=== PATIENT | male | born 1945 | race Caucasian/White ===

== ENCOUNTER 2021-03-20 09:51 | Emergency (ER) | payer OTHER ==
[2021-03-20 10:06] VITALS: RESP 18
[2021-03-20 10:28] LABS: Glucose,Whole Blood 88 mg/dL (75-99)
[2021-03-20 10:51] LABS: Basophils % (A) 1 %; Eosinophils # (A) 0.1 k/uL (0-0.7); Eosinophils % (A) 2 %; HCT 46.1 % (39.0-53.0); HGB 15.2 gm/dL (13.0-17.5); Lymphocytes # (A) 1.6 k/uL (1.0-4.8); Lymphocytes % (A) 27 %; MCH 30.7 pg (25.0-35.0); MCHC 32.9 g/dL (31.0-37.0); MCV 93.3 fL (80.0-100.0); Mean Platelet Volume 7.6; Monocytes # (A) 0.4 k/uL (0-1.0); Monocytes % (A) 7 %; Neutrophils # (A) 3.6 k/uL (1.3-7.7); Neutrophils % (A) 62 %; Platelet Count 101 k/uL (150-450); RBC 4.94 m/uL (4.30-5.90); RDW 13.5 % (11.5-15.5); WBC 5.8 k/uL (3.8-10.6)
[2021-03-20 11:09] LABS: ALT 33 U/L (4-49); AST 43 U/L (17-59); African American GFR (CKD) >90 (>60 ml/min/1.73 sqM); Albumin 4.2 g/dL (3.5-5.0); Alkaline Phosphatase 103 U/L (38-126); Anion Gap 3 mmol/L; Blood Urea Nitrogen 18 mg/dL (9-20); Calcium 9.9 mg/dL (8.4-10.2); Carbon Dioxide 35 mmol/L (22-30); Chloride 102 mmol/L (98-107); Glucose 95 mg/dL (74-99); Non-African American GFR(CKD) >90 (>60 ml/min/1.73 sqM); Potassium 4.3 mmol/L (3.5-5.1); Sodium 140 mmol/L (137-145); Total Bilirubin 0.6 mg/dL (0.2-1.3); Total Protein 6.6 g/dL (6.3-8.2)
--- NOTE | 2021-03-20 11:14 | US ---
EXAMINATION TYPE: US venous doppler duplex LE LT DATE OF EXAM: 03/20/2021 11:01 AM COMPARISON: NONE CLINICAL HISTORY: left lower leg edema. SIDE PERFORMED: Left TECHNIQUE: The lower extremity deep venous system is examined utilizing real time linear array sonog lacey with graded compression, doppler sonography and color-flow sonography. VESSELS IMAGED: Common Femoral Vein Deep Femoral Vein Greater Saphenous Vein * Femoral Vein Popliteal Vein Small Saphenous Vein * Proximal Calf Veins (* superficial vessels) Left Leg: Appears Negative for DVT Technically difficult, patient of large body habitus. IMPRESSION: 1. Left lower extremity ultrasound negative for deep venous thrombosis. This has some limitation due to patient body habitus.
[2021-03-20 11:15] LABS: INR 0.9 (<1.2); Partial Thromboplastin Time 25.5 sec (22.0-30.0); Prothrombin Time 10.1 sec (9.0-12.0)
--- NOTE | 2021-03-20 11:25 | ED ---
Lower Extremity Injury HPI - General Chief Complaint: Extremity Injury, Lower Stated Complaint: Let Leg Swelling Time Seen by Provider: 03/20/21 10:08 Source: patient, RN notes reviewed Mode of arrival: ambulatory Limitations: no limitations - History of Present Illness Initial Comments: Patient is a 75-year-old male that presents to the emergency department complaining of left lower extremity swelling and some tenderness. He notes that his primary care soon the emergency room to get evaluated for possible DVT. Patient notes that he does have very minimal tenderness over the left calf other than that everything is normal. Patient is also a diabetic and also otherwise concerns. Patient was a well-appearing well-hydrated 75-year-old male in no apparent distress or pain while sitting up in bed during the exam and interview. He denied any chest pain shortness of breath headache nausea vomiting diarrhea constipation fever fatigue chills. - Related Data Allergies Allergy/AdvReac Type Severity Reaction Status Date / Time No Known Allergies Allergy Verified 03/20/21 10:02 Review of Systems ROS Statement: Those systems with pertinent positive or pertinent negative responses have been documented in the HPI. ROS Other: All systems not noted in ROS Statement are negative. Past Medical History Past Medical History: COPD, Diabetes Mellitus History of Any Multi-Drug Resistant Organisms: None Reported Additional Past Surgical History / Comment(s): cataracts Past Psychological History: No Psychological Hx Reported Smoking Status: Former smoker Past Alcohol Use History: None Reported Past Drug Use History: None Reported General Exam Limitations: no limitations General appearance: alert, in no apparent distress, obese Head exam: Present: atraumatic, normocephalic, normal inspection Eye exam: Present: normal appearance, PERRL, EOMI. Absent: scleral icterus, conjunctival injection, periorbital swelling Neck exam: Present: normal inspection Respiratory exam: Present: normal lung sounds bilaterally. Absent: respiratory distress, wheezes, rales, rhonchi, stridor Cardiovascular Exam: Present: regular rate, normal rhythm, normal heart sounds. Absent: systolic murmur, diastolic murmur, rubs, gallop, clicks Left Lower Leg exam: Present: full ROM, tenderness (Very minimal over the calf), swelling (One plus). Absent: abrasion, laceration, erythema Neurological exam: Present: alert, oriented X3 Psychiatric exam: Present: normal affect, normal mood Skin exam: Present: warm, dry, intact, normal color. Absent: rash Course Vital Signs 03/20/21 10:03 Temperature 98.2 F Pulse Rate 83 Respiratory 18 Rate Blood Pressure 148/74 O2 Sat by Pulse 94 L Oximetry Medical Decision Making - Medical Decision Making 75-year-old male sent in by primary care to get evaluated for potential left lower extremity DVT. Labs, ultrasound of the left lower extremity ordered. Labs unremarkable. Ultrasound negative for DVT at this time. Patient did report that he eats a lot of salt drinks plenty water and that the swelling went down on its own prior to arrival. Case discussed with Dr. Gaines, patient discharge in stable condition to follow-up with primary care. - Lab Data Result diagrams: 03/20/21 10:28 03/20/21 10:32 Lab Results 03/20/21 03/20/21 03/20/21 Range/Units 10:27 10:28 10:32 WBC 5.8 (3.8-10.6) k/uL RBC 4.94 (4.30-5.90) m/uL Hgb 15.2 (13.0-17.5) gm/dL Hct 46.1 (39.0-53.0) % MCV 93.3 (80.0-100.0) fL MCH 30.7 (25.0-35.0) pg MCHC 32.9 (31.0-37.0) g/dL RDW 13.5 (11.5-15.5) % Plt Count 101 L (150-450) k/uL MPV 7.6 Neutrophils % 62 % Lymphocytes % 27 % Monocytes % 7 % Eosinophils % 2 % Basophils % 1 % Neutrophils # 3.6 (1.3-7.7) k/uL Lymphocytes # 1.6 (1.0-4.8) k/uL Monocytes # 0.4 (0-1.0) k/uL Eosinophils # 0.1 (0-0.7) k/uL Basophils # 0.0 (0-0.2) k/uL PT 10.1 (9.0-12.0) sec INR 0.9 (<1.2) APTT 25.5 (22.0-30.0) sec Sodium (137-145) mmol/L Potassium (3.5-5.1) mmol/L Chloride (98-107) mmol/L Carbon Dioxide (22-30) mmol/L Anion Gap mmol/L BUN (9-20) mg/dL Creatinine (0.66-1.25) mg/dL Est GFR (CKD-EPI)AfAm (>60 ml/min/1.73 sqM) Est GFR (CKD-EPI)NonAf (>60 ml/min/1.73 sqM) Glucose (74-99) mg/dL POC Glucose (mg/dL) 88 (75-99) mg/dL POC Glu Operations Lieutenant ID Roxann Christian Calcium (8.4-10.2) mg/dL Total Bilirubin (0.2-1.3) mg/dL AST (17-59) U/L ALT (4-49) U/L Alkaline Phosphatase (38-126) U/L Total Protein (6.3-8.2) g/dL Albumin (3.5-5.0) g/dL 03/20/21 Range/Units 10:32 WBC (3.8-10.6) k/uL RBC (4.30-5.90) m/uL Hgb (13.0-17.5) gm/dL Hct (39.0-53.0) % MCV (80.0-100.0) fL MCH (25.0-35.0) pg MCHC (31.0-37.0) g/dL RDW (11.5-15.5) % Plt Count (150-450) k/uL MPV Neutrophils % % Lymphocytes % % Monocytes % % Eosinophils % % Basophils % % Neutrophils # (1.3-7.7) k/uL Lymphocytes # (1.0-4.8) k/uL Monocytes # (0-1.0) k/uL Eosinophils # (0-0.7) k/uL Basophils # (0-0.2) k/uL PT (9.0-12.0) sec INR (<1.2) APTT (22.0-30.0) sec Sodium 140 (137-145) mmol/L Potassium 4.3 (3.5-5.1) mmol/L Chloride 102 (98-107) mmol/L Carbon Dioxide 35 H (22-30) mmol/L Anion Gap 3 mmol/L BUN 18 (9-20) mg/dL Creatinine 0.58 L (0.66-1.25) mg/dL Est GFR (CKD-EPI)AfAm >90 (>60 ml/min/1.73 sqM) Est GFR (CKD-EPI)NonAf >90 (>60 ml/min/1.73 sqM) Glucose 95 (74-99) mg/dL POC Glucose (mg/dL) (75-99) mg/dL POC Glu Operations Lieutenant ID Calcium 9.9 (8.4-10.2) mg/dL Total Bilirubin 0.6 (0.2-1.3) mg/dL AST 43 (17-59) U/L ALT 33 (4-49) U/L Alkaline Phosphatase 103 (38-126) U/L Total Protein 6.6 (6.3-8.2) g/dL Albumin 4.2 (3.5-5.0) g/dL - Radiology Data Radiology results: report reviewed, image reviewed Ultrasound left lower extremity: Left lower extremity ultrasound negative for DVT. This has some limitation due to patient body habitus. Disposition Clinical Impression: Lower extremity edema Disposition: HOME SELF-CARE Condition: Stable Instructions (If sedation given, give patient instructions): Leg Edema (ED) Additional Instructions: Please return to the Emergency Department if symptoms worsen or any other concerns. Limits so intake as it can cause fluid retention. Follow-up with primary care as soon as possible. Is patient prescribed a controlled substance at d/c from ED?: No Referrals: Kevin Fofana PT [Primary Care Provider] - 1-2 days Time of Disposition: 11:34
[2021-03-20 11:43] VITALS: BP 161/83; PULSE 82; TEMP 98
== END 2021-03-20 11:42 | disposition home or self-care (01) ==
LOC: EC 09:51
DX: R60.0 Localized edema (principal); J44.9 Chronic obstructive pulmonary disease, unspecified; E11.9 Type 2 diabetes mellitus without complications; Z87.891 Personal history of nicotine dependence
CPT/HCPCS: 36415; 80053; 85025; 85610; 85730; 99284

== ENCOUNTER 2024-04-05 12:25 | Inpatient (IN) | payer OTHER, MEDICARE ==
[2024-04-05 13:50] LABS: Basophils % (A) 1 %; Eosinophils # (A) 0.2 k/uL (0-0.7); Eosinophils % (A) 4 %; HCT 45.5 % (39.0-53.0); HGB 13.6 gm/dL (13.0-17.5); Hypochromasia Marked; Lymphocytes # (A) 1.2 k/uL (1.0-4.8); Lymphocytes % (A) 25 %; MCH 30.2 pg (25.0-35.0); MCV 100.8 fL (80.0-100.0); Macrocytosis Slight; Mean Platelet Volume 8.1; Monocytes # (A) 0.4 k/uL (0-1.0); Monocytes % (A) 8 %; Neutrophils % (A) 60 %; Platelet Count 101 k/uL (150-450); RBC 4.51 m/uL (4.30-5.90); RDW 13.7 % (11.5-15.5)
--- NOTE | 2024-04-05 13:53 | ED ---
SOB HPI - General Source: patient, RN notes reviewed Mode of arrival: ambulatory Limitations: no limitations - History of Present Illness Complaint: shortness of breath <Zaria Spencer - Last Filed: 04/05/24 13:52> - General Source: patient, RN notes reviewed, old records reviewed Mode of arrival: ambulatory Limitations: no limitations - History of Present Illness Complaint: shortness of breath -: days(s) Severity: severe Severity scale (1-10): 9 Quality: dull, aching, throbbing Consistency: constant Improves With: nothing Worsens With: exertion, movement Known History Of: COPD, asthma Context: recent URI, anxiety, recent illness Associated Symptoms: cough Treatments Prior to Arrival: oxygen <Aleksandar Contreras - Last Filed: 04/11/24 05:26> - General Chief Complaint: Shortness of Breath Stated Complaint: Abd pain Time Seen by Provider: 04/05/24 13:52 - History of Present Illness Initial Comments: Quick Note: This is an 79-year-old male who presents to the emergency department for abdominal bloating and shortness of breath. Over the last week he has had increasing swelling in his abdomen as well as lower extremities. States that he has never had problems with bloating in his abdomen before. He wears oxygen at home and states that his saturation has been dropping into the 80s as well. Denies any history of CHF. Unsure if he is on any diuretics at home. (Zaria Spencer) This is an 79-year-old male to the ER for evaluation of significant shortness of breath abdominal pain and swelling leg pain and swelling (Aleksandar Contreras) - Related Data Home Medications Medication Instructions Recorded Confirmed Artificial Tears-Hypromellose 1 drop BOTH EYES QID 04/06/24 04/06/24 [Artificial Tear Drops] Carboxymethylcellulose 1% Opth Gel 1 drop BOTH EYES BID 04/06/24 04/06/24 Fluticasone Propion/Salmeterol 1 puff INHALATION RT-BID 04/06/24 04/06/24 [Advair 100-50 Diskus] Ipratropium/Albuter 20-100Mcg 1 puff INHALATION RT-QID 04/06/24 04/06/24 [Combivent Respimat 20-100Mcg Inhaler] Loratadine 10 mg PO DAILY 04/06/24 04/06/24 Metoprolol Succinate (ER) [Toprol 12.5 mg PO DAILY 04/06/24 04/06/24 XL] glipiZIDE [Glucotrol] 5 mg PO AC-BID 04/06/24 04/06/24 metFORMIN HCL 1,000 mg PO BID 04/06/24 04/06/24 Previous Rx's Medication Instructions Recorded Furosemide [Lasix] 40 mg PO DAILY #90 tablet 04/07/24 Spironolactone [Aldactone] 100 mg PO DAILY #120 tab 04/07/24 Allergies Allergy/AdvReac Type Severity Reaction Status Date / Time naproxen Allergy Anaphylaxis Verified 04/06/24 10:01 simvastatin [From Zocor] AdvReac Nausea & Verified 04/06/24 10:01 Vomiting Review of Systems ROS Other: All systems not noted in ROS Statement are negative. <Zaria Spencer - Last Filed: 04/05/24 13:52> ROS Other: All systems not noted in ROS Statement are negative. <Aleksandar Contreras - Last Filed: 04/11/24 05:26> ROS Statement: Those systems with pertinent positive or pertinent negative responses have been documented in the HPI. Past Medical History Past Medical History: COPD, Diabetes Mellitus History of Any Multi-Drug Resistant Organisms: None Reported Additional Past Surgical History / Comment(s): cataracts Past Psychological History: No Psychological Hx Reported Smoking Status: Former smoker Past Alcohol Use History: None Reported Past Drug Use History: None Reported <Zaria Spencer - Last Filed: 04/05/24 13:52> General Exam Limitations: no limitations <Zaria Spencer - Last Filed: 04/05/24 13:52> General appearance: alert, in no apparent distress Head exam: Present: atraumatic, normocephalic, normal inspection Eye exam: Present: normal appearance, PERRL, EOMI. Absent: scleral icterus, conjunctival injection, periorbital swelling ENT exam: Present: normal exam, mucous membranes moist Neck exam: Present: normal inspection. Absent: tenderness, meningismus, lymphadenopathy Respiratory exam: Present: normal lung sounds bilaterally. Absent: respiratory distress, wheezes, rales, rhonchi, stridor Cardiovascular Exam: Present: regular rate, normal rhythm, normal heart sounds. Absent: systolic murmur, diastolic murmur, rubs, gallop, clicks GI/Abdominal exam: Present: soft, normal bowel sounds. Absent: distended, tenderness, guarding, rebound, rigid Extremities exam: Present: normal inspection, full ROM, normal capillary refill. Absent: tenderness, pedal edema, joint swelling, calf tenderness Back exam: Present: normal inspection Neurological exam: Present: alert, oriented X3, CN II-XII intact Psychiatric exam: Present: normal affect, normal mood Skin exam: Present: warm, dry, intact, normal color. Absent: rash <Aleksandar Contreras - Last Filed: 04/11/24 05:26> - General Exam Comments Initial Comments: Visual Physical Exam Vital signs reviewed General: Well-appearing, nontoxic, no acute distress. Head: Normocephalic, atraumatic Eyes: PERRLA, EOMI ENT: Airway patent Chest: Nonlabored breathing Skin: No visual rash, normal skin tone Neuro: Alert and oriented 3 Musculoskeletal: No gross abnormalities (Vogley,Zaria) Course <Aleksandar Contreras - Last Filed: 04/11/24 05:26> Vital Signs 04/05/24 04/05/24 04/05/24 12:30 17:35 17:41 Temperature 97.7 F Pulse Rate 87 83 88 Respiratory 20 22 Rate Blood Pressure 153/73 137/45 O2 Sat by Pulse 93 L 95 Oximetry 04/05/24 04/05/24 04/05/24 17:51 17:58 18:28 Temperature Pulse Rate 89 96 91 Respiratory 18 Rate Blood Pressure 128/59 O2 Sat by Pulse 95 Oximetry 04/05/24 04/05/24 04/06/24 19:41 22:48 02:08 Temperature Pulse Rate 102 H 101 H 82 Respiratory 17 20 16 Rate Blood Pressure 139/77 118/62 80/59 O2 Sat by Pulse 95 96 95 Oximetry 04/06/24 04/06/24 04/06/24 06:00 07:50 08:01 Temperature Pulse Rate 105 H 77 79 Respiratory 18 Rate Blood Pressure 115/93 O2 Sat by Pulse 94 L 95 Oximetry 04/06/24 04/06/24 04/06/24 08:43 09:00 12:00 Temperature Pulse Rate 84 92 90 Respiratory 18 18 18 Rate Blood Pressure 119/65 128/53 110/54 O2 Sat by Pulse 93 L 98 96 Oximetry 04/06/24 04/06/24 04/06/24 12:03 12:14 15:18 Temperature Pulse Rate 82 87 84 Respiratory Rate Blood Pressure O2 Sat by Pulse Oximetry 04/06/24 04/06/24 15:27 16:12 Temperature Pulse Rate 88 89 Respiratory 18 Rate Blood Pressure 124/46 O2 Sat by Pulse 97 Oximetry - Reevaluation(s) Reevaluation #1: 04/05/24 18:19 Medical records reviewed (Aleksandar Contreras) Reevaluation #2: 04/05/24 18:19 Patient admits to increased weight gain, no real improvement in symptoms here in the ER (Aleksandar Contreras) Reevaluation #3: 04/05/24 18:19 Patient informed of results questions answered (Aleksandar Contreras) Reevaluation #4: 04/05/24 18:19 Was pt. sent in by a medical professional or institution (, PA, PARLIAMENTARY LIBRARIAN, urgent care, hospital, or prison...) When possible be specific @ -no Did you speak to anyone other than the patient for history (EMS, parent, family, police, friend...)? What history was obtained from this source @ -no Did you review nursing and triage notes (agree or disagree)? Why? @ -agree Are old charts reviewed (outside hosp., previous admission, EMS record, old EKG, old radiological studies, urgent care reports/EKG's, prison records)? Report findings @ -yes Differential Diagnosis (chest pain, altered mental status, abdominal pain women, abdominal pain men, vaginal bleeding, weakness, fever, dyspnea, syncope, headache, dizziness, GI bleed, back pain, seizure, CVA, palpatations, mental health, musculoskeletal)? @ -prior EKG interpreted by me (3pts min.). @ -yes X-rays interpreted by me (1pt min.). @ -yes negative for acute disease CT interpreted by me (1pt min.). @ -Yes positive for ascites U/S interpreted by me (1pt. min.). @ -no What testing was considered but not performed or refused? (CT, X-rays, U/S, labs)? Why? @ -none What meds were considered but not given or refused? Why? @ -none Did you discuss the management of the patient with other professionals (professionals i.e. , PA, PARLIAMENTARY LIBRARIAN, lab, RT, psych nurse, social media content manager, customer support manager, teacher, press officer, community case manager)? Give summary @ -no Was smoking cessation discussed for >3mins.? @ -no Was critical care preformed (if so, how long)? @ -no Were there social determinants of health that impacted care today? How? (Homelessness, low income, unemployed, alcoholism, drug addiction, transporta tion, low edu. Level, literacy, decrease access to med. care, [facility], rehab)? @ -none Was there de-escalation of care discussed even if they declined (Discuss DNR or withdrawal of care, Hospice)? DNR status @ -no What co-morbidities impacted this encounter? (DM, HTN, Smoking, COPD, CAD, Cancer, CVA, ARF, Chemo, Hep., AIDS, mental health diagnosis, sleep apnea, morbid obesity)? @ -none Was patient admitted / discharged? Hospital course, mention meds given and route, prescriptions, significant lab abnormalities, going to OR and other pertinent info. @ - 79 male to ER for evaluation of severe shortness of breath significant ascites COPD and asthma. Patient will admit for fluid retention anasarca COPD and ascites Admitted Undiagnosed new problem with uncertain prognosis? @ -no Drug Therapy requiring intensive monitoring for toxicity (Heparin, Nitro, Insulin, Cardizem)? @ -no Were any procedures done? @ -no Diagnosis/symptom? @ -New onset of ascites dyspnea COPD Acute, or Chronic, or Acute on Chronic? @ -Acute Uncomplicated (without systemic symptoms) or Complicated (systemic symptoms)? @ -Complicated Side effects of treatment? @ -no Exacerbation, Progression, or Severe Exacerbation? @ -exacerbation Poses a threat to life or bodily function? How? (Chest pain, [place], [place], pneumonia, PE, COPD, DKA, ARF, appy, cholecystitis, CVA, Diverticulitis, Homicidal, Suicidal, threat to staff... and all critical care pts) @ -yes extremes of age (Aleksandar Contreras) Reevaluation #5: Differential Dyspnea: Coronary syndrome, arrhythmia, tamponade, asthma, COPD, pulmonary embolism, pneumonia, pneumothorax, pulmonary effusion, anaphylaxis, diabetic ketoacidosis, flailed chest, pulmonary contusion, diaphragmatic rupture, anemia, neuromuscular, this is not meant to be an all-inclusive list. (Aleksandar Contreras) - Consultations Consultation #1: Spoke with sound who agrees to admit this patient (Aleksandar Contreras) Medical Decision Making - Lab Data Result diagrams: 04/05/24 13:32 <Zaria Spencer - Last Filed: 04/05/24 13:52> - Lab Data Result diagrams: 04/07/24 06:21 04/07/24 06:17 - Radiology Data Radiology results: report reviewed (Chest x-ray shows opacities and CHF, CT shows positive ascites), image reviewed <Aleksandar Contreras - Last Filed: 04/11/24 05:26> - Medical Decision Making I performed the QuickNote portion of this chart. Signed Zaria Spencer PA-C. (Zaria Spencer) 79 male to ER for evaluation of severe shortness of breath significant ascites COPD and asthma. Patient will admit for fluid retention anasarca COPD and ascites (Aleksandar Contreras) - Lab Data Lab Results 04/05/24 04/05/24 04/05/24 Range/Units 13:32 13:32 13:32 WBC 5.0 (3.8-10.6) k/uL RBC 4.51 (4.30-5.90) m/uL Hgb 13.6 (13.0-17.5) gm/dL Hct 45.5 (39.0-53.0) % MCV 100.8 H (80.0-100.0) fL MCH 30.2 (25.0-35.0) pg MCHC 30.0 L (31.0-37.0) g/dL RDW 13.7 (11.5-15.5) % Plt Count 101 L (150-450) k/uL MPV 8.1 Neutrophils % 60 % Lymphocytes % 25 % Monocytes % 8 % Eosinophils % 4 % Basophils % 1 % Neutrophils # 3.0 (1.3-7.7) k/uL Lymphocytes # 1.2 (1.0-4.8) k/uL Monocytes # 0.4 (0-1.0) k/uL Eosinophils # 0.2 (0-0.7) k/uL Basophils # 0.0 (0-0.2) k/uL Hypochromasia Marked Macrocytosis Slight PT 11.3 (10.0-12.5) sec INR 1.0 (<1.2) APTT 28.0 (22.0-30.0) sec Sodium 141 (137-145) mmol/L Potassium 4.0 (3.5-5.1) mmol/L Chloride 103 (98-107) mmol/L Carbon Dioxide 34 H (22-30) mmol/L Anion Gap 4 mmol/L BUN 9 (9-20) mg/dL Creatinine 0.68 (0.66-1.25) mg/dL Est GFR (CKD-EPI)AfAm >90 (>60 ml/min/1.73 sqM) Est GFR (CKD-EPI)NonAf >90 (>60 ml/min/1.73 sqM) Glucose 100 H (74-99) mg/dL Lactic Ac Sepsis Rflx Plasma Lactic Acid Jonathon (0.7-2.0) mmol/L Calcium 8.9 (8.4-10.2) mg/dL Magnesium 1.5 L (1.6-2.3) mg/dL Total Bilirubin 1.6 H (0.2-1.3) mg/dL AST 56 (17-59) U/L ALT 28 (4-49) U/L Alkaline Phosphatase 107 (38-126) U/L Troponin I (0.000-0.034) ng/mL NT-Pro-B Natriuret Pep 113 pg/mL Total Protein 5.7 L (6.3-8.2) g/dL Albumin 3.4 L (3.5-5.0) g/dL Procalcitonin (0.02-0.09) ng/mL Urine Color Urine Appearance (Clear) Urine pH (5.0-8.0) Ur Specific [place] (1.001-1.035) Urine Protein (Negative) Urine Glucose (UA) (Negative) Urine Ketones (Negative) Urine Blood (Negative) Urine Nitrite (Negative) Urine Bilirubin (Negative) Urine Urobilinogen (<2.0) mg/dL Ur Leukocyte Esterase (Negative) Urine RBC (0-5) /hpf Urine WBC (0-5) /hpf Ur Squamous Epith Cells (0-4) /hpf Urine Mucus (None) /hpf Influenza Type A (PCR) (Not Detectd) Influenza Type B (PCR) (Not Detectd) RSV (PCR) (Not Detectd) SARS-CoV-2 (PCR) (Not Detectd) 04/05/24 04/05/24 04/05/24 Range/Units 13:32 13:32 13:32 WBC (3.8-10.6) k/uL RBC (4.30-5.90) m/uL Hgb (13.0-17.5) gm/dL Hct (39.0-53.0) % MCV (80.0-100.0) fL MCH (25.0-35.0) pg MCHC (31.0-37.0) g/dL RDW (11.5-15.5) % Plt Count (150-450) k/uL MPV Neutrophils % % Lymphocytes % % Monocytes % % Eosinophils % % Basophils % % Neutrophils # (1.3-7.7) k/uL Lymphocytes # (1.0-4.8) k/uL Monocytes # (0-1.0) k/uL Eosinophils # (0-0.7) k/uL Basophils # (0-0.2) k/uL Hypochromasia Macrocytosis PT (10.0-12.5) sec INR (<1.2) APTT (22.0-30.0) sec Sodium (137-145) mmol/L Potassium (3.5-5.1) mmol/L Chloride (98-107) mmol/L Carbon Dioxide (22-30) mmol/L Anion Gap mmol/L BUN (9-20) mg/dL Creatinine (0.66-1.25) mg/dL Est GFR (CKD-EPI)AfAm (>60 ml/min/1.73 sqM) Est GFR (CKD-EPI)NonAf (>60 ml/min/1.73 sqM) Glucose (74-99) mg/dL Lactic Ac Sepsis Rflx Plasma Lactic Acid Jonathon 3.6 H* (0.7-2.0) mmol/L Calcium (8.4-10.2) mg/dL Magnesium (1.6-2.3) mg/dL Total Bilirubin (0.2-1.3) mg/dL AST (17-59) U/L ALT (4-49) U/L Alkaline Phosphatase (38-126) U/L Troponin I <0.012 (0.000-0.034) ng/mL NT-Pro-B Natriuret Pep pg/mL Total Protein (6.3-8.2) g/dL Albumin (3.5-5.0) g/dL Procalcitonin (0.02-0.09) ng/mL Urine Color Urine Appearance (Clear) Urine pH (5.0-8.0) Ur Specific [place] (1.001-1.035) Urine Protein (Negative) Urine Glucose (UA) (Negative) Urine Ketones (Negative) Urine Blood (Negative) Urine Nitrite (Negative) Urine Bilirubin (Negative) Urine Urobilinogen (<2.0) mg/dL Ur Leukocyte Esterase (Negative) Urine RBC (0-5) /hpf Urine WBC (0-5) /hpf Ur Squamous Epith Cells (0-4) /hpf Urine Mucus (None) /hpf Influenza Type A (PCR) Not Detected (Not Detectd) Influenza Type B (PCR) Not Detected (Not Detectd) RSV (PCR) Not Detected (Not Detectd) SARS-CoV-2 (PCR) Not Detected (Not Detectd) 04/05/24 04/05/24 04/05/24 Range/Units 13:32 13:56 14:11 WBC (3.8-10.6) k/uL RBC (4.30-5.90) m/uL Hgb (13.0-17.5) gm/dL Hct (39.0-53.0) % MCV (80.0-100.0) fL MCH (25.0-35.0) pg MCHC (31.0-37.0) g/dL RDW (11.5-15.5) % Plt Count (150-450) k/uL MPV Neutrophils % % Lymphocytes % % Monocytes % % Eosinophils % % Basophils % % Neutrophils # (1.3-7.7) k/uL Lymphocytes # (1.0-4.8) k/uL Monocytes # (0-1.0) k/uL Eosinophils # (0-0.7) k/uL Basophils # (0-0.2) k/uL Hypochromasia Macrocytosis PT (10.0-12.5) sec INR (<1.2) APTT (22.0-30.0) sec Sodium (137-145) mmol/L Potassium (3.5-5.1) mmol/L Chloride (98-107) mmol/L Carbon Dioxide (22-30) mmol/L Anion Gap mmol/L BUN (9-20) mg/dL Creatinine (0.66-1.25) mg/dL Est GFR (CKD-EPI)AfAm (>60 ml/min/1.73 sqM) Est GFR (CKD-EPI)NonAf (>60 ml/min/1.73 sqM) Glucose (74-99) mg/dL Lactic Ac Sepsis Rflx Y Plasma Lactic Acid Jonathon (0.7-2.0) mmol/L Calcium (8.4-10.2) mg/dL Magnesium (1.6-2.3) mg/dL Total Bilirubin (0.2-1.3) mg/dL AST (17-59) U/L ALT (4-49) U/L Alkaline Phosphatase (38-126) U/L Troponin I (0.000-0.034) ng/mL NT-Pro-B Natriuret Pep pg/mL Total Protein (6.3-8.2) g/dL Albumin (3.5-5.0) g/dL Procalcitonin 0.11 H (0.02-0.09) ng/mL Urine Color Colorless Urine Appearance Clear (Clear) Urine pH 5.5 (5.0-8.0) Ur Specific [place] 1.011 (1.001-1.035) Urine Protein Negative (Negative) Urine Glucose (UA) Negative (Negative) Urine Ketones Negative (Negative) Urine Blood Negative (Negative) Urine Nitrite Negative (Negative) Urine Bilirubin Negative (Negative) Urine Urobilinogen <2.0 (<2.0) mg/dL Ur Leukocyte Esterase Large H (Negative) Urine RBC 1 (0-5) /hpf Urine WBC 29 H (0-5) /hpf Ur Squamous Epith Cells <1 (0-4) /hpf Urine Mucus Occasional H (None) /hpf Influenza Type A (PCR) (Not Detectd) Influenza Type B (PCR) (Not Detectd) RSV (PCR) (Not Detectd) SARS-CoV-2 (PCR) (Not Detectd) Disposition <Zaria Spencer - Last Filed: 04/05/24 13:52> Is patient prescribed a controlled substance at d/c from ED?: No Time of Disposition: 17:00 <Aleksandar Contreras - Last Filed: 04/11/24 05:26> Clinical Impression: Acute exacerbation of chronic obstructive pulmonary disease, Ascites Disposition: ADMITTED IP TO THIS HOSP Condition: Stable
[2024-04-05 13:56] LABS: ALT 28 U/L (4-49); African American GFR (CKD) >90 (>60 ml/min/1.73 sqM); Albumin 3.4 g/dL (3.5-5.0); Anion Gap 4 mmol/L; Blood Urea Nitrogen 9 mg/dL (9-20); Calcium 8.9 mg/dL (8.4-10.2); Carbon Dioxide 34 mmol/L (22-30); Chloride 103 mmol/L (98-107); Glucose 100 mg/dL (74-99); Non-African American GFR(CKD) >90 (>60 ml/min/1.73 sqM); Sodium 141 mmol/L (137-145); Total Bilirubin 1.6 mg/dL (0.2-1.3); Total Protein 5.7 g/dL (6.3-8.2)
[2024-04-05 13:58] LABS: AST 56 U/L (17-59); Alkaline Phosphatase 107 U/L (38-126); Magnesium 1.5 mg/dL (1.6-2.3)
[2024-04-05 13:59] LABS: Prothrombin Time 11.3 sec (10.0-12.5)
[2024-04-05 14:05] LABS: NT-Pro-B-Type Natriuretic Pept 113 pg/mL
--- NOTE | 2024-04-05 14:06 | XR ---
EXAMINATION TYPE: XR chest 2V DATE OF EXAM: 04/05/2024 COMPARISON: None HISTORY: 79-year-old male difficulty breathing, shortness of breath TECHNIQUE: PA and lateral views FINDINGS: Heart normal size. Aorta and pulmonary vasculature within normal limits. Moderate diffuse interstitia l density, slightly more patchy at the left lower lung. No pleural effusion. IMPRESSION: COPD with interstitial opacities and slightly patchy density at the left lower lung. Consider CHF wit h early interstitial edema versus atypical pneumonias.
[2024-04-05 14:54] LABS: Appearance,Urine Clear (Clear); Bilirubin,Urine Negative (Negative); Blood,Urine Negative (Negative); Color,Urine Colorless; Glucose,Urine (UA) Negative (Negative); Ketones,Urine Negative (Negative); Leukocyte Esterase,Urine Large (Negative); Mucus,Urine Occasional /hpf; Nitrite,Urine Negative (Negative); PH, Urine 5.5 (5.0-8.0); Protein,Urine Negative (Negative); RBC,Urine 1 /hpf (0-5); Specific Gravity,Urine 1.011 (1.001-1.035); Squamous Epithelial Cell,Urine <1 /hpf (0-4); Urobilinogen,Urine <2.0 mg/dL (<2.0); WBC,Urine 29 /hpf (0-5)
--- NOTE | 2024-04-05 15:07 | CT ---
EXAMINATION TYPE: CT abdomen pelvis w con DATE OF EXAM: 04/05/2024 COMPARISON: None HISTORY: abdominal distention, loose bowels CONTRAST: CT scan of the abdomen and pelvis is performed without Oral Contrast and with IV Contrast, patient in jected with 100 mL of Isovue 300. FINDINGS: LUNG BASES-: No visible nodule. No infiltrate. Small left-sided pleural effusion. LIVER/GB: There is evidence of cirrhotic liver disease without space occupying mass. The gallbladder is grossly unremarkable. Recannulization of the umbilical vein. PANCREAS: No inflammation. No distinct mass. SPLEEN: Splenomegaly with craniocaudal measurement of 17 cm. Perisplenic varices. No lesion seen. ADRENALS: No nodule. No thickening. KIDNEYS/BLADDER: No hydronephrosis. No nephrolithiasis. No distinct renal mass. Urinary bladder g rossly unremarkable. BOWEL: Perigastric varices noted. There are esophageal varices also seen. Normal appendix. Normal anika wel caliber. No inflammation. GENITAL ORGANS: No gross abnormality. LYMPH NODES: No greater than 1cm abdominal or pelvic lymph nodes are appreciated. AORTA: No significant abnormality. OSSEOUS STRUCTURES: No significant abnormality is seen. OTHER: Moderate ascites seen throughout the abdomen and pelvis. IMPRESSION: 1. Cirrhotic liver disease with splenomegaly and varices as discussed. Abdominopelvic ascites.
[2024-04-05] MEDS ORDERED: NALOXONE 0.4 MG/ML 1 ML VIAL IV PRN (16:54)
[2024-04-05] MEDS ORDERED: ONDANSETRON 4 MG/2 ML VIAL IVP PRN (16:54)
[2024-04-05] MEDS ORDERED: MORPHINE SULFATE 4 MG/ML SYRINGE IV PRN (16:54)
[2024-04-05] MEDS: FUROSEMIDE 10 MG/ML 4 ML VIAL IV STA (17:38)
[2024-04-05] MEDS: IPRATROPIUM-ALBUTEROL 3 ML NEB INHALATION STA (17:40)
[2024-04-05] MEDS: MAGNESIUM SULFATE-D5W PMX 1 GM in DEXTROSE/WATER 1 100ML.BAG IVPB SCH (17:40)
--- NOTE | 2024-04-06 01:47 | P.HPIM ---
History of Present Illness H&P Date: 04/05/24 Chief Complaint: Abdominal bloating and Dyspnea Patient is a 79-year-old male with past medical history of chronic hypoxemic respiratory failure secondary to COPD (on 3 L home oxygen therapy) and type 2 diabetes mellitus came to the ER with the symptoms of abdominal bloating that started 1 week ago. Patient reports that bloating has been worsening since past 1 to 2 days associated mild generalized abdominal pain. Patient reports no previous episodes of abdominal bloating. Denies bloody stool or dark-colored stool. Patient reports he gained 30 pounds within 2 weeks. Patient reports no previous history of ascites, liver cirrhosis, or congestive heart failure. Patient also reports exertional shortness of breath with productive cough of clear sputum since 1 week which alleviates with rest. Patient also endorses peripheral edema, orthopnea, and PND. He denies chest pain. Patient reports that he was diagnosed with "leaky heart valves" 4 years ago and he has been following up for echocardiogram every 6 months. Patient denies chest pain. No recent ho spitalization or recent travel. Denies headache, dizziness, loss of consciousness, abdominal pain, diarrhea, constipation, urinary issues. EKG done in the ER showed normal sinus rhythm with heart rate of 80 bpm. Borderline type I heart block with ID interval of 206 ms. Poor R wave progression. No QTc prolongation noted. CT abdomen revealed cirrhosis with splenomegaly and varices with ascites. Chest x-ray revealed findings of COPD as well as fluid overload. Laboratory evaluation shows WBC 5.0, hemoglobin 13.6, hematocrit 45.5, MCV 100.8, platelet count 101, PT 11.3, INR 1.0, APTT 28.0, sodium 141, potassium 4.0, chloride 103, bicarb 34, BUN 9, creatinine 0.068, glucose 100, lactic acid 3.2, magnesium 1.5, AST 56, ALT 28, troponin I 0.012 and proBNP 113 Vitals: Tmax 97.7, heart rate 102, respirations 17, blood pressure 139/77, O2 sat 95% on 2 L nasal cannula Review of systems: Pertinent positives and negatives as discussed in HPI, a complete review of systems was performed and all other systems are negative. Social history: Tobacco: Quit 20 years ago; 1 pack/day x 45 years Alcohol: Quit 20 years ago; 6-8 beers per day x 50 years Recreational drugs: None Travel: None Occupation: Retired Family History: Noncontributory Physical examination: Vital signs reviewed General: non toxic, no distress, appears at stated age, morbidly obese Derm: thierry LE chronic venous stasis changes with pretibial induration noted Head: atraumatic, normocephalic, symmetric Eyes: EOMI, no lid lag, anicteric sclera, pupils equal round reactive to light ENT: Nose and ears atraumatic Neck: No cervical lymphadenopathy, trachea midline, supple Mouth: no lip lesion, mucus membranes moist Cardiovascular: S1S2 reg, grade 2 systolic murmur, scant dorsalis pedis bila teral, grade 3 bilateral lower extremity pitting edema Lungs: CTA bilateral, no rhonchi, no rales, no accessory muscle use Abdominal: Distended, nontender, no guarding, bowel sound positive, fluid shift positive Ext: muscle strength 5 out of 5 in all 4 extremities grossly, no gross muscle atrophy, no contractures, pretibial induration with venous stasis changes, mild calf tenderness bilaterally Neuro: CN II-XI grossly intact, no gross focal neuro deficits Psych: Alert, oriented, appropriate affect Assessment/Plan: 79-year-old male with past medical history of chronic hypoxemic respiratory failure secondary to COPD (on 3 L home oxygen therapy) and type 2 diabetes mellitus came to the ER with the symptoms of abdominal bloating and worsening dypnea that started 1 week ago. #Ansarca secondary to fluid overload in setting of cirrhosis vs CHF Hold off on IV Lasix in light of patient's borderline BP (80/59) IR consult for therapeutic and diagnostic paracentensis Ordered hepatitis panel Consult GI Odered Echocardiogram for cardiac structure assessment Consider Cardiology consult as warranted by Echocardiogram results #Chronic hypoxemic respiratory respiratory failure secondary to COPD Continue with oxygen therapy with 2L on nasal cannula Continue to monitor O2 sat (Target: 88% - 92%) #Chronic venous stasis Ordered venous doppler US to r/o DVT #Elevated Lactic acidosis, likely due to cirrhosis Hold off on further testing at this point #Elevated bicarb, likely due to compensatory metabolic alkalosis in light of COPD Bicarb 34 (chronic, baseline) # Hypomagnesemia Replace and monitor Status post 3 g IV magnesium sulfate in the emergency room #Type 2 DM Started on sliding scale short acting insulin Continue to monitor serum glucose Check hgbA1C # Abnormal UA Patient denied urinary complaints Hold off on Abxs at this time #Macrocytosis, suspected due to nutritional deficiency Check RBC folate and vitamin b12 #Thrombocytopenia, in light of cirrhotic liver disease Platelet count 101 At baseline from 2020 DVT prophylaxis: Lovenox 40mg subq daily The patient is admitted with an anticipated greater than 2 midnight stay for evaluation of ascites and SOB CODE STATUS: full code Discussed with: Patient Anticipated discharge place: home Past Medical History Past Medical History: COPD, Diabetes Mellitus History of Any Multi-Drug Resistant Organisms: None Reported Additional Past Surgical History / Comment(s): cataracts Past Psychological History: No Psychological Hx Reported Smoking Status: Former smoker Past Alcohol Use History: None Reported Past Drug Use History: None Reported Medications and Allergies Allergies Allergy/AdvReac Type Severity Reaction Status Date / Time No Known Allergies Allergy Verified 04/05/24 12:34 Physical Exam Vitals: Vital Signs Temp Pulse Resp BP Pulse Ox 04/05/24 19:41 102 H 17 139/77 95 04/05/24 18:28 91 18 128/59 95 04/05/24 17:58 96 04/05/24 17:51 89 04/05/24 17:41 88 04/05/24 17:35 83 22 137/45 95 04/05/24 12:30 97.7 F 87 20 153/73 93 L Intake and Output 04/05/24 04/05/24 04/05/24 06:59 14:59 22:59 Other: Weight 127.006 kg Results CBC & Chem 7: 04/05/24 13:32 04/05/24 13:32 Labs: Abnormal Lab Results - Last 24 Hours (Table) 04/05/24 04/05/24 04/05/24 Range/Units 13:32 13:32 13:32 MCV 100.8 H (80.0-100.0) fL MCHC 30.0 L (31.0-37.0) g/dL Plt Count 101 L (150-450) k/uL Carbon Dioxide 34 H (22-30) mmol/L Glucose 100 H (74-99) mg/dL Plasma Lactic Acid Jonathon 3.6 H* (0.7-2.0) mmol/L Magnesium 1.5 L (1.6-2.3) mg/dL Total Bilirubin 1.6 H (0.2-1.3) mg/dL Total Protein 5.7 L (6.3-8.2) g/dL Albumin 3.4 L (3.5-5.0) g/dL Ur Leukocyte Esterase (Negative) Urine WBC (0-5) /hpf Urine Mucus (None) /hpf 04/05/24 04/05/24 Range/Units 14:11 17:26 MCV (80.0-100.0) fL MCHC (31.0-37.0) g/dL Plt Count (150-450) k/uL Carbon Dioxide (22-30) mmol/L Glucose (74-99) mg/dL Plasma Lactic Acid Jonathon 3.2 H* (0.7-2.0) mmol/L Magnesium (1.6-2.3) mg/dL Total Bilirubin (0.2-1.3) mg/dL Total Protein (6.3-8.2) g/dL Albumin (3.5-5.0) g/dL Ur Leukocyte Esterase Large H (Negative) Urine WBC 29 H (0-5) /hpf Urine Mucus Occasional H (None) /hpf
--- NOTE | 2024-04-06 03:23 | P.CNPUL ---
History of Present Illness Consult date: 04/06/24 Requesting physician: Aleksandar Contreras Reason for consult: COPD Chief complaint: Shortness of breath, abdominal swelling/fullness, increased lower extremity History of present illness: Patient is an 79-year-old white male with past medical history significant for COPD, chronic hypoxemic respiratory failure utilizing 2 L nasal cannula mostly at night, former tobacco smoker, diabetes mellitus. He follows with the [facility] in [place]. He went to see his provider yesterday as he had increased weight gain, approximately 30 pounds over the last couple weeks. He has noticed worsening exertional dyspnea, abdominal fullness and tightness, and increased lower extremity swelling over the last 1-1/2 weeks. He denies any history of heart failure. Denies diuretic use outpatient. Does admit to a "leaky heart valve". Denies any chest pain, lightheadedness, syncopal events. He is currently sitting up in bed, on 2 L/min nasal cannula, in no acute distress. His abdomen is distended. He has significant lower extremity edema and erythema. No tenderness, warmth, fevers. He denies any infectious-like symptoms. No change in his chronic cough. Denies fevers. Denies hemoptysis. Denies sick contacts. Patient normally wears 2 L nasal cannula mostly at night. Known to have COPD. Quit smoking approximately 20 years ago, but has significant smoking history of over 30 pack years. Chest x-ray showed COPD with interstitial prominence and slightly patchy density at the left lower lung. Possible atelectasis versus infiltrate in the left lower lobe. CHF was within the differential. NT proBNP was low. Serial troponins less than 0.012, 0.012, and 0.019 respectively. EKG shows sinus rhythm without any obvious acute ischemic changes. CBC: WBC count 5, hemoglobin 13.6, hematocrit 45.5, platelets 101. CMP: Sodium 141, potassium 4, chloride 103, serum bicarb 34, BUN 9, creatinine 0.68, glucose 100. Lactic acid 3.6 and down to 3.2. Total bilirubin 1.6. LFTs not elevated. Coagulation profile unremarkable. An abdominal CT and pelvis with contrast was performed which showed cirrhotic liver disease, splenomegaly measuring 17 cm craniocaudally, and perisplenic varices, as well as moderate abdominal pelvic ascites. No significant abdominal pain or tenderness. Denies history of known liver disease. Does admit remote history of previous heavy alcohol use over 20 years ago. Denies prior ascites or previous paracentesis. Negative for influenza, RSV, COVID. Afebrile. Hemodynamically stable. Review of Systems REVIEW OF SYSTEMS: CONSTITUTIONAL: Admits to 30 pound weight gain over approximately 2 weeks EYES: Denies change in vision. EARS, NOSE, MOUTH, THROAT: Denies headaches, denies sore throat. CARDIOVASCULAR: Denies chest pain, palpitations or syncopal episodes. Reports significant lower extremity swelling over the last 1-1/2 weeks. RESPIRATORY: Does admit progressively worsening exertional dyspnea. No significant change in patient's chronic cough, no congestion, hemoptysis, chest pain. GASTROINTESTINAL: Denies change in appetite, abdominal pain, nausea and vomiting. Does admit to loose shaw like stools. GENITOURINARY: Denies hematuria, denies infections. MUSKULOSKELETAL: Denies pain, denies swelling. INTEGUMENTARY: Denies rash, denies eczema. NEUROLOGICAL: Denies recent memory loss, no recent seizure activity. PSYCHIATRIC: Denies anxiety, denies depression. HEMATOLOGIC/LYMPHATIC: Denies anemia, denies enlarged lymph node Past Medical History Past Medical History: COPD, Diabetes Mellitus History of Any Multi-Drug Resistant Organisms: None Reported Additional Past Surgical History / Comment(s): cataracts Past Psychological History: No Psychological Hx Reported Smoking Status: Former smoker Past Alcohol Use History: None Reported Past Drug Use History: None Reported Medications and Allergies Allergies Allergy/AdvReac Type Severity Reaction Status Date / Time No Known Allergies Allergy Verified 04/05/24 12:34 Physical Exam Vitals: Vital Signs Temp Pulse Resp BP Pulse Ox 04/06/24 02:08 82 16 80/59 95 04/05/24 22:48 101 H 20 118/62 96 04/05/24 19:41 102 H 17 139/77 95 04/05/24 18:28 91 18 128/59 95 04/05/24 17:58 96 04/05/24 17:51 89 04/05/24 17:41 88 04/05/24 17:35 83 22 137/45 95 04/05/24 12:30 97.7 F 87 20 153/73 93 L Intake and Output 04/05/24 04/05/24 04/06/24 14:59 22:59 06:59 Other: Weight 127.006 kg GENERAL EXAM: Alert, 79-year-old white male, distended abdomen, fairly comfortable in no apparent distress. HEAD: Normocephalic and atraumatic EYES: Normal reaction of pupils, equal size. NOSE: Clear with pink turbinates. THROAT: No erythema or exudates. NECK: No masses, no JVD. CHEST: No chest wall deformity. LUNGS: Equal air entry with no crackles, wheeze, rhonchi or dullness. On 2 L/m in nasal cannula. No conversational dyspnea or accessory muscle use.. CVS: S1 and S2 normal with harsh systolic murmur, grade 2, regular rhythm. No other extra heart sounds ABDOMEN: Distended abdomen, ascites, active bowel sounds, no guarding or rigidity. SPINE: No scoliosis or deformity SKIN: No rashes CENTRAL NERVOUS SYSTEM: No focal deficits, tone is normal in all 4 extremities. EXTREMITIES: There is significant bilateral lower extremity edema and erythema. No clubbing, or cyanosis. Peripheral pulses are intact. Results - Laboratory Findings CBC and BMP: 04/05/24 13:32 04/05/24 13:32 PT/INR, D-dimer PT 11.3 sec (10.0-12.5) 04/05/24 13:32 INR 1.0 (<1.2) 04/05/24 13:32 Abnormal lab findings: Abnormal Labs 04/05/24 04/05/24 04/05/24 13:32 13:32 13:32 MCV 100.8 H MCHC 30.0 L Plt Count 101 L Carbon Dioxide 34 H Glucose 100 H Plasma Lactic Acid Jonathon 3.6 H* Magnesium 1.5 L Total Bilirubin 1.6 H Total Protein 5.7 L Albumin 3.4 L Ur Leukocyte Esterase Urine WBC Urine Mucus 04/05/24 04/05/24 04/05/24 14:11 17:26 20:42 MCV MCHC Plt Count Carbon Dioxide Glucose Plasma Lactic Acid Jonathon 3.2 H* 3.2 H* Magnesium Total Bilirubin Total Protein Albumin Ur Leukocyte Esterase Large H Urine WBC 29 H Urine Mucus Occasional H - Diagnostic Findings Chest x-ray: image reviewed Assessment and Plan Assessment: Acute on chronic hypoxemic respiratory failure, Chest x-ray demonstrates chronic COPD changes with interstitial prominence and slightly patchy density at the left lower lung. There is a small left pleural effusion and associated atelectasis. Doubt infectious process. CHF was within the differential, however, NT proBNP was low. Recent 30 pound weight gain Bilateral lower extremity edema Liver cirrhosis Moderate abdominal pelvic ascites, as reported in CT of the abdomen Splenomegaly, measuring 17 cm craniocaudally Chronic hypoxemic respiratory failure, normally utilizes 2 L nasal cannula at bedtime Chronic obstructive pulmonary disease, appears stable on my examination Former tobacco smoker, quitting over 20 years ago, with over 80-sici-eqof history Remote history of alcohol abuse, reportedly drinking 6-8 beers for 30-40 years, quitting over 20 years ago Obesity Diabetes mellitus, type II Plan: Patient's medications, labs, imaging reviewed Continue supplemental oxygen maintain oxygen saturation of 90% or greater Patient in a fluid positive balance Has received 1 dose of 40 mg of Lasix, is reportedly urinating often. Will continue with Lasix Transthoracic echocardiogram ordered NT proBNP low GI was consulted for abdominal CT findings with liver cirrhosis and ascites IR consulted for possible paracentesis On my evaluation, COPD does not appear active. Continue with as needed albuterol nebs We will continue to follow I have personally seen and examined the patient, performed the documentation and the assessment and plan as written. Number of minutes spent on the visit:20 Time with Patient: Greater than 30
[2024-04-06] MEDS: ALBUTEROL NEBULIZED 1.25 MG/3 ML INHALATION PRN (07:48)
--- NOTE | 2024-04-06 08:26 | US ---
EXAMINATION TYPE: US venous doppler duplex LE BI DATE OF EXAM: 04/06/2024 7:40 AM COMPARISON: LLE 03/20/2021 CLINICAL INDICATION: Male, 79 years old with history of thierry LE r/o DVT; No hx of DVT. Patient does no t take blood thinners. Pain in both legs. SIDE PERFORMED: Bilateral TECHNIQUE: The lower extremity deep venous system is examined utilizing real time linear array sonog lacey with graded compression, doppler sonography and color-flow sonography. VESSELS IMAGED: Common Femoral Vein Deep Femoral Vein Greater Saphenous Vein * Femoral Vein Popliteal Vein Small Saphenous Vein * Proximal Calf Veins (* superficial vessels) [employer] notes: Exam is limited due to edema/artifact. Right Leg: No evidence of DVT. Limited visibility of prox calf veins. Left Leg: No evidence of DVT. Limited visibility of prox calf veins. IMPRESSION: 1. Limited visibility of the upper calf veins. Otherwise, no evidence for DVT within the bilateral lo wer extremities from the groin to the knees. 2. Subcutaneous edema in the calves.
[2024-04-06 08:38] LABS: Glucose,Whole Blood 109 mg/dL (70-110)
[2024-04-06] MEDS: INSULIN ASPART (NovoLOG) 100 UNIT/ML VIAL SQ SCH (08:39)
[2024-04-06] MEDS: SPIRONOLACTONE 25 MG TAB PO SCH (08:50)
[2024-04-06] MEDS: FUROSEMIDE 10 MG/ML 2 ML VIAL IV SCH (08:50)
[2024-04-06] MEDS ORDERED: ENOXAPARIN 40 MG/0.4 ML SYRINGE SQ SCH (09:00)
[2024-04-06 11:18] LABS: Hepatitis A Antibody IgM Nonreactive (Nonreactive); Hepatitis B Surface Antigen Nonreactive (Nonreactive); Hepatitis C IgG Antibody Nonreactive (Nonreactive)
[2024-04-06 11:21] LABS: ALT 26 U/L (10-49); AST 45 U/L (14-35); Albumin 3.2 g/dL (3.8-4.9); Albumin/Globulin Ratio 1.88 Ratio (1.60-3.17); Alkaline Phosphatase 98 U/L (41-126); BUN/Creat Ratio 8.88 Ratio (12.00-20.00); Blood Urea Nitrogen 7.1 mg/dL (9.0-27.0); Calcium 8.9 mg/dL (8.7-10.3); Carbon Dioxide 33.6 mmol/L (21.6-31.8); Chloride 102 mmol/L (96-109); Globulin 1.7 g/dL (1.6-3.3); Glucose 101 mg/dL (70-110); Potassium 3.6 mmol/L (3.5-5.5); Sodium 145 mmol/L (135-145); Total Protein 4.9 g/dL (6.2-8.2)
[2024-04-06] MEDS: IPRATROPIUM-ALBUTEROL 3 ML NEB INHALATION SCH (12:03)
[2024-04-06 12:10] LABS: Magnesium 1.8 mg/dL (1.5-2.4); Phosphorus 2.7 mg/dL (2.4-5.1)
[2024-04-06 12:13] LABS: Basophils # (A) 0.04 X 10*3/uL (0.00-0.10); Basophils % (A) 0.9 %; Eosinophils # (A) 0.16 X 10*3/uL (0.04-0.35); Eosinophils % (A) 3.6 %; HGB 12.7 g/dL (13.0-17.0); Lymphocytes # (A) 0.85 X 10*3/uL (0.90-5.00); Lymphocytes % (A) 19.2 %; MCH 29.7 pg (27.0-32.0); MCHC 30.2 g/dL (32.0-37.0); MCV 98.1 FL (80.0-97.0); Mean Platelet Volume 10.3 FL (9.5-12.2); Monocytes # (A) 0.57 X 10*3/uL (0.20-1.00); Monocytes % (A) 12.9 %; NRBC Per 100 WBC 0 X 10*3/uL (0.00-0.01); Neutrophils # (A) 2.79 X 10*3/uL (1.80-7.70); Neutrophils % (A) 63.2 %; Platelet Count 92 X 10*3/uL (140-440); RBC 4.28 X 10*6/uL (4.40-5.60); RBC Morphology Normal (Normal); RDW 14.9 % (11.5-14.5); WBC 4.42 X 10*3/uL (4.50-10.00)
[2024-04-06 12:25] LABS: Glucose,Whole Blood 132 mg/dL (70-110)
--- NOTE | 2024-04-06 13:45 | P.CONS ---
History of Present Illness - Reason for Consult Consult date: 04/06/24 Ascites Requesting physician: Aleksandar Contreras - Chief Complaint Shortness of breath, abdominal distention - History of Present Illness This is a pleasant 79-year-old male with a past medical history including COPD, chronic hypoxemic respiratory failure oxygen dependent, former smoker, diabetes mellitus and coronary artery disease. He follows with the [place] [facility] and was seeing his PCP and complaining of increased lower extremity swelling, weight gain and abdominal distention. He was sent in for further evaluation. He had a CT of the abdomen pelvis that reported ascites and gastroenterology was consulted. Patient denies any previous known history of liver disease but does state that he had hepatitis as a child but it had gone away. He does have a remote history of heavy alcohol consumption after [place] states that he has not had any alcohol probably over 20 years. Liver enzymes overall normal with minimal elevation of AST. Hepatitis panel nonreactive. States that he has had lower extremity swelling that has been him creasing he usually has more swelling on his left than his right. He now has swelling in bilateral lower extremities as well as feels that his abdominal girth is getting larger. He does complain of some shortness of breath, no chest pain, no abdominal pain and no nausea or vomiting. Review of Systems REVIEW OF SYSTEMS: CARDIOPULMONARY: No chest pain. Positive shortness of breath Gastrointestinal: No abdominal pain. No nausea or vomiting. No hematemesis, coffee-ground emesis. No rectal bleeding, or melena. Abdominal distention. GENITOURINARY: No dysuria or hematuria. MUSCULOSKELETAL: Reports normal range of motion. SKIN: No rashes. No jaundice. ENDOCRINE: No chills, fevers. No excessive weight gain or loss. No polydipsia or polyuria. PSYCHIATRIC: Unremarkable. NEUROLOGY: No change in mental status. Denies dizziness, headache. ENT: Vision unremarkable. CONSTITUTIONAL: No recent weight loss. No fever, chills, night sweats. Past Medical History Past Medical History: COPD, Diabetes Mellitus History of Any Multi-Drug Resistant Organisms: None Reported Additional Past Surgical History / Comment(s): cataracts Past Psychological History: No Psychological Hx Reported Smoking Status: Former smoker Past Alcohol Use History: None Reported Past Drug Use History: None Reported Medications and Allergies Home Medications Medication Instructions Recorded Confirmed Type Artificial Tears-Hypromellose 1 drop BOTH EYES QID 04/06/24 04/06/24 History [Artificial Tear Drops] Carboxymethylcellulose 1% Opth Gel 1 drop BOTH EYES BID 04/06/24 04/06/24 History Fluticasone Propion/Salmeterol 1 puff INHALATION RT-BID 04/06/24 04/06/24 Hist ory [Advair 100-50 Diskus] Ipratropium/Albuter 20-100Mcg 1 puff INHALATION RT-QID 04/06/24 04/06/24 History [Combivent Respimat 20-100Mcg Inhaler] Loratadine 10 mg PO DAILY 04/06/24 04/06/24 History Meloxicam [Mobic] 7.5 mg PO DAILY PRN 04/06/24 04/06/24 History Metoprolol Succinate (ER) [Toprol 12.5 mg PO DAILY 04/06/24 04/06/24 History Xl] glipiZIDE [Glucotrol] 5 mg PO AC-BID 04/06/24 04/06/24 History metFORMIN HCL 1,000 mg PO BID 04/06/24 04/06/24 History Allergies Allergy/AdvReac Type Severity Reaction Status Date / Time naproxen Allergy Anaphylaxis Verified 04/06/24 10:01 simvastatin [From Zocor] AdvReac Nausea & Verified 04/06/24 10:01 Vomiting Physical Exam Vitals: Vital Signs Temp Pulse Resp BP Pulse Ox 04/06/24 08:01 79 04/06/24 07:50 77 95 04/06/24 06:00 105 H 18 115/93 94 L 04/06/24 02:08 82 16 80/59 95 04/05/24 22:48 101 H 20 118/62 96 04/05/24 19:41 102 H 17 139/77 95 04/05/24 18:28 91 18 128/59 95 04/05/24 17:58 96 04/05/24 17:51 89 04/05/24 17:41 88 04/05/24 17:35 83 22 137/45 95 04/05/24 12:30 97.7 F 87 20 153/73 93 L General appearance: The patient is alert, oriented, appears in no acute distress. HET: Head is normocephalic and atraumatic. Conjunctiva pink. Sclera anicteric. Neck: Supple without lymphadenopathy. Trachea midline. Heart: Regular. Lungs: Equal expansion, normal respiratory effort. Abdomen: Soft, obese, nontender, distended but feels like small amount of ascites. Skin: No rashes. No jaundice. Extremities: Normal skin color and turgor. Bilateral lower extremity edema. Neurological: No focal deficits. Alert and oriented x3. Results CBC & Chem 7: 04/06/24 05:56 04/06/24 05:56 Labs: Abnormal Lab Results - Last 24 Hours (Table) 04/05/24 04/05/24 04/05/24 Range/Units 13:32 13:32 13:32 MCV 100.8 H (80.0-100.0) fL MCHC 30.0 L (31.0-37.0) g/dL Plt Count 101 L (150-450) k/uL Carbon Dioxide 34 H (22-30) mmol/L Glucose 100 H (74-99) mg/dL Plasma Lactic Acid Jonathon 3.6 H* (0.7-2.0) mmol/L Magnesium 1.5 L (1.6-2.3) mg/dL Total Bilirubin 1.6 H (0.2-1.3) mg/dL Total Protein 5.7 L (6.3-8.2) g/dL Albumin 3.4 L (3.5-5.0) g/dL Ur Leukocyte Esterase (Negative) Urine WBC (0-5) /hpf Urine Mucus (None) /hpf 04/05/24 04/05/24 04/05/24 Range/Units 14:11 17:26 20:42 MCV (80.0-100.0) fL MCHC (31.0-37.0) g/dL Plt Count (150-450) k/uL Carbon Dioxide (22-30) mmol/L Glucose (74-99) mg/dL Plasma Lactic Acid Jonathon 3.2 H* 3.2 H* (0.7-2.0) mmol/L Magnesium (1.6-2.3) mg/dL Total Bilirubin (0.2-1.3) mg/dL Total Protein (6.3-8.2) g/dL Albumin (3.5-5.0) g/dL Ur Leukocyte Esterase Large H (Negative) Urine WBC 29 H (0-5) /hpf Urine Mucus Occasional H (None) /hpf 04/06/24 Range/Units 00:03 MCV (80.0-100.0) fL MCHC (31.0-37.0) g/dL Plt Count (150-450) k/uL Carbon Dioxide (22-30) mmol/L Glucose (74-99) mg/dL Plasma Lactic Acid Jonathon 3.0 H* (0.7-2.0) mmol/L Magnesium (1.6-2.3) mg/dL Total Bilirubin (0.2-1.3) mg/dL Total Protein (6.3-8.2) g/dL Albumin (3.5-5.0) g/dL Ur Leukocyte Esterase (Negative) Urine WBC (0-5) /hpf Urine Mucus (None) /hpf Comments: CT abdomen pelvis reports cirrhotic liver disease with splenomegaly and varices as discussed. Abdominal pelvic ascites. Assessment and Plan (1) Cirrhosis of liver Narrative/Plan: 79-year-old male with multiple comorbidities presents for abdominal distention, lower extremity swelling and shortness of breath. States he has been having increased abdominal distention over the last several weeks as well as lower extremity edema. He had a CT of the abdomen pelvis for further evaluation noting cirrhotic liver splenomegaly moderate amount of ascites. Denies any previous history of liver disease, however does admit to heavy alcohol use for many years after returning home from [place]. States he has not had any drinks in over 20 years but liver cirrhosis could be secondary to alcohol as well as fatty liver disease as patient is morbidly obese. Hepatitis panel nonreactive, will start diuretics and plan for paracentesis with fluid studies. Current Visit: Yes Status: Acute Code(s): K74.60 - UNSPECIFIED CIRRHOSIS OF LIVER SNOMED Code(s): 22659570 (2) Ascites Current Visit: Yes Status: Acute Code(s): R18.8 - OTHER ASCITES SNOMED Code(s): 651721409 (3) COPD (chronic obstructive pulmonary disease) Current Visit: Yes Status: Acute Code(s): J44.9 - CHRONIC OBSTRUCTIVE PULMONARY DISEASE, UNSPECIFIED SNOMED Code(s): 75639962 (4) Morbidly obese Current Visit: Yes Status: Acute Code(s): E66.01 - MORBID (SEVERE) OBESITY DUE TO EXCESS CALORIES SNOMED Code(s): 958988085 Plan: 1. Continue symptomatic and supportive care 2. Increase Lasix to 40 mg daily 3. Add spironolactone 100 mg daily 4. Low-sodium diet 5. Consult to interventional radiology with fluid studies ordered 6. Hepatitis panel reviewed, nonreactive 7. Recommend weight loss 8. Continue with alcohol abstinence 9. Rest of medical management per primary medical team Thank you for this consultation, we will continue to follow. Dr. Michael Flores I agree with the dictator's note, documented as a scribe by Brenda Herrera.
--- NOTE | 2024-04-06 15:31 | US ---
EXAMINATION TYPE: US abdomen limited DATE OF EXAM: 04/06/2024 COMPARISON: CT CLINICAL INDICATION: Male, 79 years old with history of to assess for fluid pocket; Assess for ascite s Mild amount of free fluid within ABD IMPRESSION: As above
[2024-04-06 17:26] LABS: Glucose,Whole Blood 128 mg/dL (70-110)
--- NOTE | 2024-04-06 18:07 | P.PN ---
Subjective Progress Note Date: 04/06/24 Subjective: Patient seen at bedside. No significant overnight events. Pertinent positives and negatives discussed above, a complete review of systems was preformed and all the other systems were negative. Vitals Signs Reveiwed. General: non toxic, no distress, appears at stated age, morbidly obese Derm: thierry LE chronic venous stasis changes with pretibial induration noted Head: atraumatic, normocephalic, symmetric Eyes: EOMI, no lid lag, anicteric sclera, pupils equal round reactive to light ENT: Nose and ears atraumatic Neck: No cervical lymphadenopathy, trachea midline, supple Mouth: no lip lesion, mucus membranes moist Cardiovascular: S1S2 reg, grade 2 systolic murmur, scant dorsalis pedis bilateral, grade 3 bilateral lower extremity pitting edema Lungs: CTA bilateral, no rhonchi, no rales, no accessory muscle use Abdominal: Distended, nontender, no guarding, bowel sound positive, fluid shift positive Ext: muscle strength 5 out of 5 in all 4 extremities grossly, no gross muscle atrophy, no contractures, pretibial induration with venous stasis changes, mild calf tenderness bilaterally Neuro: CN II-XI grossly intact, no gross focal neuro deficits Psych: Alert, oriented, appropriate affect Data Reveiwed Today: Patient Labs: Sodium 145, potassium 3.6, bicarb 33.6, BUN 7.1, creatinine 0.8, glucose 101, AST 45, ALT 26, total protein 4.9, albumin 3.2, WBC 4.42, hemoglobin 12.7, platelet count 92, and MCV 98.1. Imaging: CT abdomen showed cirrhosis with splenomegaly and varices with ascites. CXR showed findings consistent with COPD as well as fluid overload. Ultrasound venous Doppler duplex LE BI: Limited visibility of upper calf veins. Otherwise no evidence for DVT within the bilateral lower extremities from the groin to the knees.. Subcutaneous edema in the calfs. Abdominal ultrasound: Mild amount of free fluid within the abdomen Assesment: 79-year-old male with past medical history of chronic hypoxemic respiratory failure secondary to COPD (on 3 L home oxygen therapy) and type 2 diabetes mellitus came to the ER with the symptoms of abdominal bloating and worsening dypnea that started 1 week ago. Plan: Ansarca secondary to fluid overload in setting of cirrhosis vs CHF Lasix 40 mg IV daily continued after BP stabilized Paracentesis not performed due to mild amount of free fluid within the abdomen after abdominal ultrasound Acute hepatitis and viral panel came back negative Pending results of the echo Per GI, added spironolactone 100 mg daily GI note reviewed, continue management as above Chronic hypoxemic respiratory respiratory failure secondary to COPD, not in exacerbation Continue with oxygen therapy with 2L on nasal cannula Continue to monitor O2 sat (Target: 88% - 92%) Continue home COPD medication, on Symbicort twice daily, DuoNeb 4 times daily -Pulmonology note reviewed, continue inhalers Chronic venous stasis : Ultrasound venous Doppler duplex showed no evidence for DVT and also showed subcutaneous edema in the calves. Elevated Lactic acidosis, likely due to cirrhosis: Continue to monitor for signs of deconditioning Elevated bicarb, likely due to compensatory metabolic alkalosis in light of COPD: Bicarb 34 (chronic, baseline) on admission and repeat testing revealed bicarb of 33.6. Hypomagnesemia: Has improved since admission, now at 1.8. Continue to monitor Status post 3 g IV magnesium sulfate in the emergency room Type 2 DM: Started on sliding scale short acting insulin Continue to monitor serum glucose A1c 5.6 -Holding metformin and glipizide Abnormal UA: Patient denied urinary complaints Hold off on Abxs at this time Macrocytosis, likely secondary to cirrhosis B12 [id number] Continue to monitor Thrombocytopenia, in light of cirrhotic liver disease : Platelet count 101 on admission, on repeat lab testing platelets were 92 At baseline from 2020 DVT prophylaxis: Lovenox 40mg subq daily Disposition: Pending clinical course I have seen and evaluated the patient today. Discussed with the resident and agree with the residents finding and plan as documented in the resident's note. Changes highlighted in blue font. Objective - Vital Signs Vital signs: Vital Signs Temp 97.7 F 04/05/24 12:30 Pulse 82 04/06/24 02:08 Resp 16 04/06/24 02:08 BP 80/59 04/06/24 02:08 Pulse Ox 95 04/06/24 02:08 FiO2 Intake & Output 04/05/24 04/05/24 04/06/24 06:59 18:59 06:59 Weight 127.006 kg - Labs CBC & Chem 7: 04/06/24 05:56 04/06/24 05:56 Labs: Abnormal Lab Results - Last 24 Hours (Table) 07/04/05/24 04/05/24 Range/Units 13:32 13:32 13:32 MCV 100.8 H (80.0-100.0) fL MCHC 30.0 L (31.0-37.0) g/dL Plt Count 101 L (150-450) k/uL Carbon Dioxide 34 H (22-30) mmol/L Glucose 100 H (74-99) mg/dL Plasma Lactic Acid Jonathon 3.6 H* (0.7-2.0) mmol/L Magnesium 1.5 L (1.6-2.3) mg/dL Total Bilirubin 1.6 H (0.2-1.3) mg/dL Total Protein 5.7 L (6.3-8.2) g/dL Albumin 3.4 L (3.5-5.0) g/dL Ur Leukocyte Esterase (Negative) Urine WBC (0-5) /hpf Urine Mucus (None) /hpf 04/05/24 04/05/24 04/05/24 Range/Units 14:11 17:26 20:42 MCV (80.0-100.0) fL MCHC (31.0-37.0) g/dL Plt Count (150-450) k/uL Carbon Dioxide (22-30) mmol/L Glucose (74-99) mg/dL Plasma Lactic Acid Jonathon 3.2 H* 3.2 H* (0.7-2.0) mmol/L Magnesium (1.6-2.3) mg/dL Total Bilirubin (0.2-1.3) mg/dL Total Protein (6.3-8.2) g/dL Albumin (3.5-5.0) g/dL Ur Leukocyte Esterase Large H (Negative) Urine WBC 29 H (0-5) /hpf Urine Mucus Occasional H (None) /hpf 04/06/24 Range/Units 00:03 MCV (80.0-100.0) fL MCHC (31.0-37.0) g/dL Plt Count (150-450) k/uL Carbon Dioxide (22-30) mmol/L Glucose (74-99) mg/dL Plasma Lactic Acid Jonathon 3.0 H* (0.7-2.0) mmol/L Magnesium (1.6-2.3) mg/dL Total Bilirubin (0.2-1.3) mg/dL Total Protein (6.3-8.2) g/dL Albumin (3.5-5.0) g/dL Ur Leukocyte Esterase (Negative) Urine WBC (0-5) /hpf Urine Mucus (None) /hpf
[2024-04-06 20:50] LABS: Glucose,Whole Blood 161 mg/dL (70-110)
[2024-04-06] MEDS: SYMBICORT 80-4.5 MCG INHALER INHALATION SCH (20:59)
[2024-04-07 06:09] LABS: Glucose,Whole Blood 119 mg/dL (70-110)
[2024-04-07] MEDS: FUROSEMIDE 10 MG/ML 4 ML VIAL IV SCH (08:26)
[2024-04-07] MEDS: METOPROLOL SUCCINATE (ER) 25 MG TAB.ER.24H PO SCH (09:50)
--- NOTE | 2024-04-07 09:52 | CDI ---
Documentation Clarification Form Date: 04/07/2024 From: Saige Fonseca Phone: [phone] Admit Date: 04/05/2024 04:59:00 PM Patient Name: Ramos Bucio Visit Number: [id number] Discharge Date: ATTENTION: The Clinical Documentation Specialists (CDI) and [facility] Coding Staff appreciate your assistance in clarifying documentation. Please respond to the clarification below the line at the bottom and electronically sign. The CDI & [facility] Coding staff will review the response and follow-up if needed. Please note: Queries are made part of the Legal Health Record. If you have any questions, please contact the author of this message via ITS. Doctor/Provider: MAGALY Alvares: Acute on chronic respiratory failure is documented in the Pulmonology consult note 04/06 which may lack sufficient clinical evidence/support in the medical record. Additional clarification is requested. History/Risk Factors: 79-year-old male with a history of DM2, COPD with chronic hypoxic respiratory failure who presents with abdominal distention, found to have liver cirrhosis and ascites Clinical Indicators: 04/05 Triage VS: 153/73, 97.7, 87, 20, 93% 2 liters nasal cannula 04/06 Pulmonology consult, HPI: "past medical history significant for COPD, chronic hypoxemic respiratory failure utilizing 2 L nasal cannula mostly at night." Assessment and Plan: "Acute on chronic hypoxemic respiratory failure" 04/06 IM PN, Assessment: "Chronic hypoxemic respiratory failure secondary to COPD, not in exacerbation" 04/05-04/07 SaO2 range: 91%(04/07)-98%(04/06) Oxygen flow rate: 2liters per nasal cannula 04/05 Chest X Ray, Impression: "COPD with interstitial opacities and slightly patchy density at the left lower lung. Consider CHF with early interstitial edema versus atypical pneumonias." Treatment: 2liters nasal cannula, monitor O2 saturation, Consult Pulmonology Duoneb nebulizer 0.5-3mg given once 04/05 then QID start 04/06 Symbicort 80-4.5mcg inhaler BID start 04/06 Albuterol 1.25mg nebulized Q2hour PRN given once 04/06 Please clarify if Acute hypoxic respiratory failure is a valid diagnosis? [ ] No, acute hypoxic respiratory failure is ruled out [ x] Yes, acute hypoxic respiratory failure is present as evidence by (additional clinical support): [ ] Other (please specify diagnosis) [ ] Unable to determine MTDD
[2024-04-07 10:26] LABS: HCT 38.9 % (39.6-50.0); HGB 11.8 g/dL (13.0-17.0); MCH 29.6 pg (27.0-32.0); MCHC 30.3 g/dL (32.0-37.0); MCV 97.5 FL (80.0-97.0); Mean Platelet Volume 9.8 FL (9.5-12.2); NRBC Per 100 WBC 0 X 10*3/uL (0.00-0.01); Platelet Count 92 X 10*3/uL (140-440); RBC 3.99 X 10*6/uL (4.40-5.60); RDW 14.6 % (11.5-14.5); WBC 4.24 X 10*3/uL (4.50-10.00)
[2024-04-07 10:42] LABS: BUN/Creat Ratio 9.25 Ratio (12.00-20.00); Blood Urea Nitrogen 7.4 mg/dL (9.0-27.0); Calcium 8.6 mg/dL (8.7-10.3); Carbon Dioxide 33.8 mmol/L (21.6-31.8); Chloride 102 mmol/L (96-109); Glucose 123 mg/dL (70-110); Potassium 3.5 mmol/L (3.5-5.5); Sodium 145 mmol/L (135-145)
--- NOTE | 2024-04-07 11:08 | CA ---
Transthoracic Echo Report Name: Ramos Bucio Age: 79 Gender: M : 1945 Exam Date: 04/06/2024 13:21 Exam Location: [place] [facility] Ht (in): 65 Wt (lb): 280 Ordering Physician: Marco Reeves Attending/Referring Phys: Software Engineering Manager María Noble RDCS Procedure CPT: Indications: evaluate LV function Cardiac Hx: Technical Quality: Fair Contrast 1: Total Dose (mL): Contrast 2: Total Dose (mL): MEASUREMENTS (Male / Female) Normal Values 2D ECHO LV Diastolic Diameter PLAX 5.3 cm 4.2 - 5.9 / 3.9 - 5.3 cm LV Systolic Diameter PLAX 3.0 cm IVS Diastolic Thickness 0.8 cm 0.6 - 1.0 / 0.6 - 0.9 cm LVPW Diastolic Thickness 1.2 cm 0.6 - 1.0 / 0.6 - 0.9 cm LV Relative Wall Thickness 0.4 RV Internal Dim ED PLAX 2.2 cm LVOT Diameter 1.9 cm Aortic Root Diameter 3.9 cm LA Systolic Diameter LX 4.3 cm 3.0 - 4.0 / 2.7 - 3.8 cm LV Diastolic Volume MOD BP 83.1 cm??? 67 - 155 / 56 - 104 cm??? LV Systolic Volume MOD BP 28.3 cm??? 22 - 58 / 19 - 49 cm??? LV Ejection Fraction MOD BP 65.9 % >= 55 % LV Cardiac Index MOD BP 1981.4 cm???/min???m??? LV Diastolic Volume MOD 4C 105.0 cm??? LV Systolic Volume MOD 4C 25.3 cm??? LV Ejection Fraction MOD 4C 75.9 % LV Cardiac Index MOD 4C 2883.1 cm???/min???m??? LV Diastolic Length 4C 8.9 cm LV Systolic Length 4C 6.1 cm LV Diastolic Volume MOD 2C 61.7 cm??? LV Systolic Volume MOD 2C 28.8 cm??? LV Ejection Fraction MOD 2C 53.4 % LV Cardiac Index MOD 2C 1192.5 cm???/min???m??? LV Diastolic Length 2C 8.3 cm LV Systolic Length 2C 7.1 cm LA Volume 55.0 cm??? 18 - 58 / 22 - 52 cm??? LA Volume Index 22.1 cm???/m??? 16 - 28 cm???/m??? M-MODE Aortic Root Diameter MM 3.5 cm LA Systolic Diameter MM 4.3 cm LA Ao Ratio MM 1.2 AV Cusp Separation MM 1.1 cm DOPPLER AV Peak Velocity 367.4 cm/s AV Peak Gradient 54.0 mmHg AV Mean Velocity 251.4 cm/s AV Mean Gradient 30.7 mmHg AV Velocity Time Integral 71.9 cm LVOT Peak Velocity 150.3 cm/s LVOT Peak Gradient 9.0 mmHg LVOT Velocity Time Integral 34.5 cm LVOT Stroke Volume 98.0 cm??? LVOT Stroke Volume Index 42.9 ml/m??? LVOT Cardiac Index 3546.4 cm???/min???m??? AV Area Cont Eq vti 1.4 cm??? AV Area Cont Eq pk 1.2 cm??? MV Area PHT 2.8 cm??? Mitral E Point Velocity 78.7 cm/s Mitral A Point Velocity 110.1 cm/s Mitral E to A Ratio 0.7 MV Deceleration Time 274.4 ms TR Peak Velocity 289.4 cm/s TR Peak Gradient 33.5 mmHg FINDINGS Left Ventricle Left ventricular ejection fraction is estimated at 60-65 %. Left ventricular cavity size normal. No obvious regional wall motion abnormalities. Left ventricular wall thickness normal. Right Ventricle Normal right ventricular size and function. Right ventricular systolic pressure within normal limits. Right Atrium Mild right atrial dilatation. Left Atrium Mildly increased left atrial diameter. Mitral Valve Structurally normal mitral valve. Trace mitral regurgitation. No mitral stenosis. Aortic Valve Trileaflet aortic valve. [id number] aortic stenosis with a peak gradient of 54 mmHg and a mean gradient of 30 mmHg. Thickened aortic valve. Tricuspid Valve Structurally normal tricuspid valve. Trace tricuspid regurgitation. Pulmonic Valve Structurally normal pulmonic valve. Trace pulmonic regurgitation. No pulmonic stenosis. Pericardium No pericardial or pleural effusion. Aorta Normal size aortic root and proximal ascending aorta. CONCLUSIONS Left ventricular ejection fraction 60-65% RVSP 33 Trace mitral regurgitation Moderate to severe aortic stenosis with mean gradient 30 mmHg Trace tricuspid regurgitation No pericardial effusion Previewed by: Dr. Joce Porter DO (Electronically Signed) Final Date: 07 April 2024 11:07
[2024-04-07 11:33] LABS: Glucose,Whole Blood 116 mg/dL (70-110)
--- NOTE | 2024-04-07 12:53 | P.PN ---
Subjective Progress Note Date: 04/07/24 Principal diagnosis: Liver cirrhosis This is a pleasant 79-year-old male with a past medical history including COPD, chronic hypoxemic respiratory failure oxygen dependent, former smoker, diabetes mellitus and coronary artery disease. He follows with the [place] [facility] and was seeing his PCP and complaining of increased lower extremity swelling, weight gain and abdominal distention. He was sent in for further evaluation. He had a CT of the abdomen pelvis that reported ascites and gastroenterology was consulted. Patient denies any previous known history of liver disease but does state that he had hepatitis as a child but it had gone away. He does have a remote history of heavy alcohol consumption after [place] states that he has not had any alcohol probably over 20 years. Liver enzymes overall normal with minimal elevation of AST. Hepatitis panel nonreactive. States that he has had lower extremity swelling that has been him creasing he usually has more swelling on his left than his right. He now has swelling in bilateral lower extremities as well as feels that his abdominal girth is getting larger. He does complain of some shortness of breath, no chest pain, no abdominal pain and no nausea or vomiting. 04/07/2024 Patient seen and examined today as a follow-up. He underwent ultrasound for paracentesis with interventional radiology yesterday however he did not have enough fluid to safely do a paracentesis. He denies any shortness of breath or chest pain. He had no acute changes through the night. He was started on spironolactone and Lasix was increased to 40 mg daily. Objective - Vital Signs Vital signs: Vital Signs Temp 98.4 F 04/07/24 07:06 Pulse 87 04/07/24 08:21 Resp 18 04/07/24 08:00 BP 123/68 04/07/24 07:06 Pulse Ox 92 L 04/07/24 08:14 FiO2 Intake & Output 04/06/24 04/07/24 04/07/24 18:59 06:59 18:59 Intake Total 200 Output Total 100 Balance 200 -100 Weight 127.006 kg Intake: Oral 200 Output: Urine 100 Other: Voiding Method Toilet Urinal # Voids 2 - Exam General appearance: The patient is alert, oriented, appears in no acute distres s. HET: Head is normocephalic and atraumatic. Conjunctiva pink. Sclera anicteric. Neck: Supple without lymphadenopathy. Abdomen: Soft, nontender, nondistended. Morbidly obese. Extremities: Normal skin color and turgor. No pedal edema Skin: No rashes, no jaundice Neurological: No focal deficits. Alert and oriented. - Labs CBC & Chem 7: 04/07/24 06:21 04/07/24 06:17 Labs: Abnormal Lab Results - Last 24 Hours (Table) 04/06/24 04/06/24 04/06/24 Range/Units 05:56 05:56 12:24 WBC 4.42 L (4.50-10.00) X 10*3/uL RBC 4.28 L (4.40-5.60) X 10*6/uL Hgb 12.7 L (13.0-17.0) g/dL MCV 98.1 H (80.0-97.0) FL MCHC 30.2 L (32.0-37.0) g/dL RDW 14.9 H (11.5-14.5) % Plt Count 92 L (140-440) X 10*3/uL Lymphocytes # 0.85 L (0.90-5.00) X 10*3/uL Carbon Dioxide 33.6 H (21.6-31.8) mmol/L BUN 7.1 L (9.0-27.0) mg/dL BUN/Creatinine Ratio 8.88 L (12.00-20.00) Ratio POC Glucose (mg/dL) 132 H (70-110) mg/dL AST 45 H (14-35) U/L Total Protein 4.9 L (6.2-8.2) g/dL Albumin 3.2 L (3.8-4.9) g/dL 04/06/24 04/06/24 04/07/24 Range/Units 17:25 20:49 06:08 WBC (4.50-10.00) X 10*3/uL RBC (4.40-5.60) X 10*6/uL Hgb (13.0-17.0) g/dL MCV (80.0-97.0) FL MCHC (32.0-37.0) g/dL RDW (11.5-14.5) % Plt Count (140-440) X 10*3/uL Lymphocytes # (0.90-5.00) X 10*3/uL Carbon Dioxide (21.6-31.8) mmol/L BUN (9.0-27.0) mg/dL BUN/Creatinine Ratio (12.00-20.00) Ratio POC Glucose (mg/dL) 128 H 161 H 119 H (70-110) mg/dL AST (14-35) U/L Total Protein (6.2-8.2) g/dL Albumin (3.8-4.9) g/dL Assessment and Plan (1) Cirrhosis of liver Narrative/Plan: 79-year-old male with multiple comorbidities presents for abdominal distention, lower extremity swelling and shortness of breath. States he has been having increased abdominal distention over the last several weeks as well as lower extremity edema. He had a CT of the abdomen pelvis for further evaluation noting cirrhotic liver splenomegaly moderate amount of ascites. Denies any previous history of liver disease, however does admit to heavy alcohol use for many years after returning home from [place]. States he has not had any drinks in over 20 years but liver cirrhosis could be secondary to alcohol as well as fatty liver disease as patient is morbidly obese. Hepatitis panel nonreactive, will start diuretics. Paracentesis canceled as there was not enough adequate fluid for it. Discussed importance of weight loss with patient. Follow-up with gastroenterology. No further workup at this time. Status: Acute Code(s): K74.60 - UNSPECIFIED CIRRHOSIS OF LIVER SNOMED Code(s): 82951978 (2) Ascites Status: Acute Code(s): R18.8 - OTHER ASCITES SNOMED Code(s): 958891740 (3) COPD (chronic obstructive pulmonary disease) Status: Acute Code(s): J44.9 - CHRONIC OBSTRUCTIVE PULMONARY DISEASE, UNSPECIFIED SNOMED Code(s): 44321236 (4) Morbidly obese Status: Acute Code(s): E66.01 - MORBID (SEVERE) OBESITY DUE TO EXCESS CALORIES SNOMED Code(s): 838745611 Plan: 1. Continue symptomatic and supportive care 2. Increase Lasix to 40 mg daily 3. Add spironolactone 100 mg daily 4. Low-sodium diet 5. Consult to interventional radiology with fluid studies ordered 6. Hepatitis panel reviewed, nonreactive 7. Recommend weight loss 8. Continue with alcohol abstinence 9. Rest of medical management per primary medical team 10. Patient is cleared by gastroenterology for discharge. Will need outpatient follow-up for liver surveillance. Thank you for this consultation, we will sign off at this time. Dr. Michael Flores I agree with the dictator's note, documented as a scribe by Brenda Herrera.
--- NOTE | 2024-04-07 13:10 | P.PN ---
Subjective Progress Note Date: 04/07/24 Principal diagnosis: Shortness of breath. Patient is an 79-year-old white male with past medical history significant for COPD, chronic hypoxemic respiratory failure utilizing 2 L nasal cannula mostly at night, former tobacco smoker, diabetes mellitus. He follows with [facility] [place]. He went to see his provider yesterday as he had increased weight gain, approximately 30 pounds over the last couple weeks. He has noticed worsening exertional dyspnea, abdominal fullness and tightness, and increased lower extremity swelling over the last 1-1/2 weeks. He denies any history of heart failure. Denies diuretic use outpatient. Does admit to a "leaky heart valve". Denies any chest pain, lightheadedness, syncopal events. He is currently sitting up in bed, on 2 L/min nasal cannula, in no acute distress. His abdomen is distended. He has significant lower extremity edema and erythema. No tenderness, warmth, fevers. He denies any infectious-like symptoms. No change in his chronic cough. Denies fevers. Denies hemoptysis. Denies sick contacts. Patient normally wears 2 L nasal cannula mostly at night. Known to have COPD. Quit smoking approximately 20 years ago, but has significant smoking history of over 30 pack years. Chest x-ray showed COPD with interstitial prominence and slightly patchy density at the left lower lung. Possible atelectasis versus infiltrate in the left lower lobe. CHF was within the differential. NT proBNP was low. Serial troponins less than 0.012, 0.012, and 0.019 respectively. EKG shows sinus rhythm without any obvious acute ischemic changes. CBC: WBC count 5, hemoglobin 13.6, hematocrit 45.5, platelets 101. CMP: Sodium 141, potassium 4, chloride 103, serum bicarb 34, BUN 9, creatinine 0.68, glucose 100. Lactic acid 3.6 and down to 3.2. Total bilirubin 1.6. LFTs not elevated. Coagulation profile unremarkable. An abdominal CT and pelvis with contrast was performed which showed cirrhotic liver disease, splenom egaly measuring 17 cm craniocaudally, and perisplenic varices, as well as moderate abdominal pelvic ascites. No significant abdominal pain or tenderness. Denies history of known liver disease. Does admit remote history of previous heavy alcohol use over 20 years ago. Denies prior ascites or previous paracentesis. Negative for influenza, RSV, COVID. Afebrile. Hemodynamically stable. Progress note dated April 07, 2024. 79-year-old male seen in room 458. Family member at the bedside. Currently, he is doing well from the pulmonary standpoint, and feels better. He is on 2 L of oxygen. He is not receiving any IV fluids. Overall, the patient states that he is feeling much better. He does have a history of COPD, and chronic hypoxemic respiratory failure. He does have home O2, but does not use it on a regular basis. Current labs include a white count 4.24 hemoglobin 11.8, macro 38.9, and a platelet count of 92,000. Sodium 145, potassium 3.5, chlorides 102, CO2 34, anion gap 9, BUN 7.4, creatinine 0.8. Glucose is 116. Calcium is 8.6. Objective - Vital Signs Vital signs: Vital Signs Temp 98.4 F 04/07/24 07:06 Pulse 80 04/07/24 11:37 Resp 18 04/07/24 08:00 BP 123/68 04/07/24 07:06 Pulse Ox 92 L 04/07/24 08:14 FiO2 Intake & Output 04/06/24 04/07/24 04/07/24 18:59 06:59 18:59 Intake Total 200 Output Total 100 Balance 200 -100 Weight 127.006 kg Intake: Oral 200 Output: Urine 100 Other: Voiding Method Toilet Urinal # Voids 2 - Exam No acute distress, oriented 3. Currently on 2 L. No respiratory distress. HEENT examination is grossly unremarkable. Mucous membranes are moist. No oral lesions. Neck supple. Full range of motion. No adenopathy thyromegaly or neck vein distention. Cardiovascular examination reveals regular rhythm rate. S1-S2 normal. No S3 or S4. No discernible murmur noted. Heart rate is 80 bpm. Lungs reveal relatively clear breath sounds. Breath sounds are equal bilaterally. Few scattered rhonchi. No wheezes or crackles. 2 L saturation is 92%. Abdomen soft bowel sounds are heard. No masses or tenderness. Extremities are intact. No cyanosis clubbing or edema. Skin is without rash or lesion. Neurologic examination is brief but nonfocal. - Labs CBC & Chem 7: 04/07/24 06:21 04/07/24 06:17 Labs: Abnormal Lab Results - Last 24 Hours (Table) 04/06/24 04/06/24 04/07/24 Range/Units 17:25 20:49 06:08 WBC (4.50-10.00) X 10*3/uL RBC (4.40-5.60) X 10*6/uL Hgb (13.0-17.0) g/dL Hct (39.6-50.0) % MCV (80.0-97.0) FL MCHC (32.0-37.0) g/dL RDW (11.5-14.5) % Plt Count (140-440) X 10*3/uL Carbon Dioxide (21.6-31.8) mmol/L BUN (9.0-27.0) mg/dL BUN/Creatinine Ratio (12.00-20.00) Ratio Glucose (70-110) mg/dL POC Glucose (mg/dL) 128 H 161 H 119 H (70-110) mg/dL Calcium (8.7-10.3) mg/dL 04/07/24 04/07/24 04/07/24 Range/Units 06:17 06:21 11:32 WBC 4.24 L (4.50-10.00) X 10*3/uL RBC 3.99 L (4.40-5.60) X 10*6/uL Hgb 11.8 L (13.0-17.0) g/dL Hct 38.9 L (39.6-50.0) % MCV 97.5 H (80.0-97.0) FL MCHC 30.3 L (32.0-37.0) g/dL RDW 14.6 H (11.5-14.5) % Plt Count 92 L (140-440) X 10*3/uL Carbon Dioxide 33.8 H (21.6-31.8) mmol/L BUN 7.4 L (9.0-27.0) mg/dL BUN/Creatinine Ratio 9.25 L (12.00-20.00) Ratio Glucose 123 H (70-110) mg/dL POC Glucose (mg/dL) 116 H (70-110) mg/dL Calcium 8.6 L (8.7-10.3) mg/dL Assessment and Plan Assessment: Acute on chronic hypoxemic respiratory failure, secondary to COPD exacerbation. Recent 30 pound weight gain. Bilateral lower extremity edema. Liver cirrhosis. Moderate abdominal pelvic ascites. Splenomegaly, measuring 17 cm craniocaudally. Chronic hypoxemic respiratory failure, normally utilizes 2 L nasal cannula at bedtime. Former tobacco smoker, quitting over 20 years ago, with over 17-ffen-pyrv history. Remote history of alcohol abuse, reportedly drinking 6-8 beers for 30-40 years, quitting over 20 years ago. Obesity. Diabetes mellitus, type II. Plan: Plan dated April 07, 2024. The patient appears to be doing relatively well. The patient is currently on 2 L. His breathing is much improved. He is nearly lying flat in bed, without any respiratory distress. Labs, x-rays, and medications are all reviewed. The patient's overall prognosis remains guarded. We will continue to follow the patient, make recommendations along the way. Time with Patient: Less than 30
[2024-04-07 14:23] VITALS: BP 108/63; RESP 17; TEMP 98.3
[2024-04-07 15:06] VITALS: PULSE 82
--- NOTE | 2024-04-07 15:18 | P.DS ---
Providers Date of admission: 04/05/24 16:59 Expected date of discharge: 04/07/24 Attending physician: Sanaz Lees MD Consults: 04/05/24 16:54 Consult Physician Routine Consulting Provider: Christopher Lane Consult Reason/Comments: copd Do you want consulting provider notified?: Yes Consult Physician Routine Consulting Provider: Filomena Flores Consult Reason/Comments: ascites Do you want consulting provider notified?: Yes Primary care physician: [facility] Hospital Course: Discharge Diagnosis: Cirrhosis Anasarca/hypervolemia Moderate to severe aortic stenosis Chronic hypoxemic respiratory failure secondary to COPD, not in exacerbation Chronic venous stasis Lactic acidosis Metabolic alkalosis Hypomagnesemia Type 2 diabetes Macrocytosis Thrombocytopenia Hospital Course: Patient is a 79-year-old male with past medical history of chronic hypoxemic respiratory failure secondary to COPD (on 2 L home oxygen therapy) and type 2 diabetes mellitus came to the ER with the symptoms of abdominal bloating. Patient admitted to exertional shortness of breath, cough productive with clear sputum, peripheral edema, orthopnea, and PND. Patient denied chest pain, headache, dizziness, loss of consciousness, abdominal pain, diarrhea, constipation, and urinary issues. While in the ED patient's vitals were significant for heart rate 102 and blood pressure 139/77. Patient received labs which showed WBC 5.0, hemoglobin 13.6, hematocrit 45.5, MCV 100.8, platelet count 101, PT 11.3, INR 1.0, APTT 28.0, sodium 141, potassium 4.0, chloride 103, bicarb 34, BUN 9, creatinine 0.068, glucose 100, lactic acid 3.2, magnesium 1.5, AST 56, ALT 28, troponin I 0.012 and proBNP 113. Patient also received imaging including EKG which showed normal sinus rhythm with a heart rate of 80 bpm, borderline type I heart block with MS interval of 206 MS, poor R wave progression, and no QTc prolongation noted. In addition patient also received CT abdomen which revealed cirrhosis with splenomegaly and varices with ascites. Patient also received chest x-ray revealing findings of COPD as well as fluid overload. Patient was admitted for further workup of anasarca secondary to fluid overload in the setting of cirrhosis versus CHF, chronic venous stasis, and chronic hypoxemic respiratory failure secondary to COPD. While in the hospital patient received venous Doppler study which showed no evidence for DVT within the bilateral lower extremities from the groin to the knees. Patient also received an echocardiogram with an EF of 60-65%, trace mitral regurg, moderate to severe aortic stenosis, trace tricuspid regurgitation, and no pericardial effusion. In addition patient also received an abdominal ultrasound which showed mild amount of free fluid within the abdomen. Likely cause of his hypervolemia is cirrhosis. GI was consulted. Started on diuretics. Pulm was also consulted, not in COPD exacerbation. Patient continued to saturate well on home dose of 2 L nasal cannula. At this point patient was medically stable and hemodynamically stable for discharge. Patient was discharged to home with self-care. Patient is advised to follow-up with his PCP, GI, and PT. Patient also advised to read discharge handouts in regards to cirrhosis. Outpatient follow-up with PCP for further evaluation of aortic stenosis, may need further cardiac workup. Vital signs reveiwed and stable: General: non toxic, no distress, appears at stated age, morbidly obese Derm: thierry LE chronic venous stasis changes with pretibial induration noted Head: atraumatic, normocephalic, symmetric Eyes: EOMI, no lid lag, anicteric sclera, pupils equal round reactive to light ENT: Nose and ears atraumatic Neck: No cervical lymphadenopathy, trachea midline, supple Mouth: no lip lesion, mucus membranes moist Cardiovascular: S1S2 reg, grade 2 systolic murmur, scant dorsalis pedis bilateral, grade 3 bilateral lower extremity pitting edema Lungs: CTA bilateral, no rhonchi, no rales, no accessory muscle use Abdominal: Distended, nontender, no guarding, bowel sound positive, fluid shift positive Ext: muscle strength 5 out of 5 in all 4 extremities grossly, no gross muscle atrophy, no contractures, pretibial induration with venous stasis changes, mild calf tenderness bilaterally Neuro: CN II-XI grossly intact, no gross focal neuro deficits Psych: Alert, oriented, appropriate affect A total of 33 minutes were spent preparing this complex discarge summary. Patient was discharged on 04/07/2024 at 1428. I have seen and evaluated the patient today. Discussed with the resident and agree with the residents finding and plan as documented in the resident's note. Changes highlighted in blue font. Patient Condition at Discharge: Stable Plan - Discharge Summary Discharge Rx Participant: Yes New Discharge Prescriptions: New Furosemide [Lasix] 40 mg PO DAILY #90 tablet Spironolactone [Aldactone] 100 mg PO DAILY #120 tab Continue metFORMIN HCL 1,000 mg PO BID Fluticasone Propion/Salmeterol [Advair 100-50 Diskus] 1 puff INHALATION RT- BID Metoprolol Succinate (ER) [Toprol XL] 12.5 mg PO DAILY Carboxymethylcellulose 1% Opth Gel 1 drop BOTH EYES BID Artificial Tears-Hypromellose [Artificial Tear Drops] 1 drop BOTH EYES QID glipiZIDE [Glucotrol] 5 mg PO AC-BID Ipratropium/Albuter 20-100Mcg [Combivent Respimat 20-100Mcg Inhaler] 1 puff INHALATION RT-QID Loratadine 10 mg PO DAILY Discontinued Meloxicam [Mobic] 7.5 mg PO DAILY PRN PRN Reason: pain/inflammation Discharge Medication List Artificial Tears-Hypromellose [Artificial Tear Drops] 1 drop BOTH EYES QID 04/06/24 [History] Carboxymethylcellulose 1% Opth Gel 1 drop BOTH EYES BID 04/06/24 [History] Fluticasone Propion/Salmeterol [Advair 100-50 Diskus] 1 puff INHALATION RT-BID 04/06/24 [History] Ipratropium/Albuter 20-100Mcg [Combivent Respimat 20-100Mcg Inhaler] 1 puff INHALATION RT-QID 04/06/24 [History] Loratadine 10 mg PO DAILY 04/06/24 [History] Metoprolol Succinate (ER) [Toprol XL] 12.5 mg PO DAILY 04/06/24 [History] glipiZIDE [Glucotrol] 5 mg PO AC-BID 04/06/24 [History] metFORMIN HCL 1,000 mg PO BID 04/06/24 [History] Furosemide [Lasix] 40 mg PO DAILY #90 tablet 04/07/24 [Rx] Spironolactone [Aldactone] 100 mg PO DAILY #120 tab 04/07/24 [Rx] Follow up Appointment(s)/Referral(s): Shavonne Wong, [facility] [REFERRING] - 2 Weeks (Gastroenterology, follow-up new onset ascites/cirrhosis of the liver) Filomena Flores MD [STAFF PHYSICIAN] - [address],Kevin PT [REFERRING] - 1-2 days Patient Instructions/Handouts: Cirrhosis (DC) Activity/Diet/Wound Care/Special Instructions: Please call the [facility] [phone] if you do not hear from the home care nurse within 48 hours of discharge. Discharge Disposition: HOME SELF-CARE
[2024-04-07] MEDS: HEPARIN SODIUM,PORCINE 5,000 UNIT/ML 1 ML VIAL SQ SCH (16:00)
== END 2024-04-07 17:00 | disposition home or self-care (01) | DRG 432 ==
LOC: EC 12:25 → 4SSUR 16:59
PROVIDERS: ADMIT Internal Medicine; ATTEND Internal Medicine
DX: K70.31 Alcoholic cirrhosis of liver with ascites (principal); J96.01 Acute respiratory failure with hypoxia; J98.11 Atelectasis; E87.20 Acidosis, unspecified; E87.4 Mixed disorder of acid-base balance; J44.1 Chronic obstructive pulmonary disease with (acute) exacerbation; Z68.42 Body mass index [BMI] 45.0-49.9, adult; E11.9 Type 2 diabetes mellitus without complications; E66.01 Morbid (severe) obesity due to excess calories; I25.10 Atherosclerotic heart disease of native coronary artery without angina pectoris; I87.8 Other specified disorders of veins; Z99.81 Dependence on supplemental oxygen; Z88.5 Allergy status to narcotic agent; E86.1 Hypovolemia; Z88.8 Allergy status to other drugs, medicaments and biological substances; E83.42 Hypomagnesemia; I08.3 Combined rheumatic disorders of mitral, aortic and tricuspid valves; R16.1 Splenomegaly, not elsewhere classified; D75.89 Other specified diseases of blood and blood-forming organs; D69.6 Thrombocytopenia, unspecified; Z79.1 Long term (current) use of non-steroidal anti-inflammatories (NSAID); Z79.84 Long term (current) use of oral hypoglycemic drugs; Z87.891 Personal history of nicotine dependence; Z98.42 Cataract extraction status, left eye; Z98.41 Cataract extraction status, right eye
CPT/HCPCS: 36415; 71046; 74177; 76705; 80048; 80053; 81001; 82607; 82747; 83036; 83605; 83735; 83880; 84100; 84145; 84484; 85025; 85027; 85610; 85730; 86704; 86709; 86803; 87340; 87636; 93005; 93306; 93970; 94640; 94760; 96365; 96366; 96375; 96376; 99285

== ENCOUNTER → 2024-06-21 | Outpatient (CLI) | payer OTHER, MEDICARE ==
[2024-06-21 20:37] LABS: Basophils # (A) 0.06 X 10*3/uL (0.00-0.10); Basophils % (A) 0.8 %; Eosinophils # (A) 0.25 X 10*3/uL (0.04-0.35); Eosinophils % (A) 3.1 %; HCT 45.5 % (39.6-50.0); HGB 14.3 g/dL (13.0-17.0); Lymphocytes # (A) 2.19 X 10*3/uL (0.90-5.00); Lymphocytes % (A) 27.4 %; MCH 30.2 pg (27.0-32.0); MCHC 31.4 g/dL (32.0-37.0); Mean Platelet Volume 10.9 FL (9.5-12.2); Monocytes # (A) 0.82 X 10*3/uL (0.20-1.00); Monocytes % (A) 10.3 %; NRBC Per 100 WBC 0 X 10*3/uL (0.00-0.01); Neutrophils # (A) 4.64 X 10*3/uL (1.80-7.70); Neutrophils % (A) 58.1 %; Platelet Count 136 X 10*3/uL (140-440); RBC 4.74 X 10*6/uL (4.40-5.60); RDW 14.3 % (11.5-14.5); WBC 7.98 X 10*3/uL (4.50-10.00)
[2024-06-21 21:36] LABS: % Iron Saturation 42.41 (15.00-50.00); ALT 36 U/L (10-49); AST 43 U/L (14-35); Albumin 3.9 g/dL (3.8-4.9); Albumin/Globulin Ratio 1.86 Ratio (1.60-3.17); Alkaline Phosphatase 124 U/L (41-126); BUN/Creat Ratio 17.73 Ratio (12.00-20.00); Blood Urea Nitrogen 19.5 mg/dL (9.0-27.0); Calcium 9.5 mg/dL (8.7-10.3); Carbon Dioxide 27.7 mmol/L (21.6-31.8); Chloride 100 mmol/L (96-109); Globulin 2.1 g/dL (1.6-3.3); Glucose 94 mg/dL (70-110); Iron 134 UG/DL (65-175); Potassium 5.2 mmol/L (3.5-5.5); Sodium 140 mmol/L (135-145); Total Bilirubin 0.7 mg/dL (0.3-1.2); Total Iron Binding Capacity 316 UG/DL (228-460)
[2024-06-21 21:48] LABS: Ceruloplasmin 25.2 mg/dL (20.0-60.0)
[2024-06-21 22:16] LABS: Protein, Total 5.8 g/dL (6.2-8.2)
[2024-06-28 15:26] LABS: Albumin 3.51 g/dL (3.80-4.90); Gamma Globulin 0.73 g/dL (0.70-1.50)
== END | disposition home or self-care (01) ==
LOC: LABWHC1 15:06
PROVIDERS: ATTEND Internal Medicine Gastroenterology
DX: K74.60 Unspecified cirrhosis of liver (principal)
CPT/HCPCS: 36415; 80053; 82103; 82105; 82390; 82728; 83516; 83540; 83550; 84165; 85025; 86038

== ENCOUNTER → 2024-10-21 | Outpatient (CLI) | payer OTHER ==
[2024-10-21 14:58] LABS: Basophils # (A) 0.08 X 10*3/uL (0.00-0.10); Eosinophils # (A) 0.29 X 10*3/uL (0.04-0.35); Eosinophils % (A) 3.6 %; HCT 43.1 % (39.6-50.0); HGB 13.7 g/dL (13.0-17.0); Lymphocytes # (A) 2.12 X 10*3/uL (0.90-5.00); Lymphocytes % (A) 26.5 %; MCH 29.8 pg (27.0-32.0); MCHC 31.8 g/dL (32.0-37.0); MCV 93.9 FL (80.0-97.0); Mean Platelet Volume 10.4 FL (9.5-12.2); Monocytes # (A) 0.75 X 10*3/uL (0.20-1.00); Monocytes % (A) 9.4 %; NRBC Per 100 WBC 0 X 10*3/uL (0.00-0.01); Neutrophils # (A) 4.73 X 10*3/uL (1.80-7.70); Neutrophils % (A) 59.2 %; Platelet Count 132 X 10*3/uL (140-440); RBC 4.59 X 10*6/uL (4.40-5.60); RDW 13.6 % (11.5-14.5); WBC 7.99 X 10*3/uL (4.50-10.00)
[2024-10-21 15:10] LABS: ALT 33 U/L (10-49); AST 37 U/L (14-35); Albumin 3.8 g/dL (3.8-4.9); Albumin/Globulin Ratio 1.73 Ratio (1.60-3.17); Alkaline Phosphatase 112 U/L (41-126); BUN/Creat Ratio 15.82 Ratio (12.00-20.00); Blood Urea Nitrogen 17.4 mg/dL (9.0-27.0); Calcium 9.9 mg/dL (8.7-10.3); Carbon Dioxide 30.1 mmol/L (21.6-31.8); Chloride 102 mmol/L (96-109); Globulin 2.2 g/dL (1.6-3.3); Glucose 120 mg/dL (70-110); Potassium 4.6 mmol/L (3.5-5.5); Sodium 142 mmol/L (135-145); Total Bilirubin 0.9 mg/dL (0.3-1.2)
== END | disposition home or self-care (01) ==
LOC: LABWHC1 09:58
PROVIDERS: ATTEND Internal Medicine Gastroenterology
DX: K74.60 Unspecified cirrhosis of liver (principal)
CPT/HCPCS: 36415; 80053; 82105; 85025

== ENCOUNTER 2025-03-12 13:47 | Inpatient (IN) | payer OTHER, MEDICARE ==
--- NOTE | 2025-03-12 15:17 | ED ---
General Adult HPI - General Chief complaint: Shortness of Breath Stated complaint: SOB, Fever Time Seen by Provider: 03/12/25 14:41 Source: patient Mode of arrival: wheelchair - History of Present Illness Initial comments: Patient is an 79-year-old male with a past medical history of COPD on 2 L home oxygen presenting today for shortness of breath. Patient shortness of breath b een going on for the last 2 to 3 days. He has had a cough productive of green sputum. He states initially sputum was brownish in color and now has turned to green. He is up to 4 L oxygen. He denies chest pain, denies new lower extremity swelling. Does state he is abdomen feels more "bloated" than normal and endorses mild epigastric discomfort. Has felt very cold at home though denies any measured fevers. Endorses nausea and decreased appetite but denies vomiting. Did have 2 loose nonbloody none melanotic stools today. - Related Data Home Medications Medication Instructions Recorded Confirmed Artificial Tears-Hypromellose 1 drop BOTH EYES QID 04/06/24 03/12/25 [Artificial Tear Drops] Fluticasone Propion/Salmeterol 1 puff INHALATION RT-BID 04/06/24 03/12/25 [Advair 100-50 Diskus] Ipratropium/Albuter 20-100Mcg 1 puff INHALATION RT-QID 04/06/24 03/12/25 [Combivent Respimat 20-100Mcg Inhaler] Loratadine 10 mg PO DAILY 04/06/24 03/12/25 Metoprolol Succinate (ER) [Toprol 12.5 mg PO DAILY 04/06/24 03/12/25 XL] metFORMIN HCL 1,000 mg PO BID 04/06/24 03/12/25 Clotrimazole Cream [Lotrimin Cream] 1 applic TOPICAL BID 03/12/25 03/12/25 Fiber Gummies Sugar Free 1 tab PO DAILY 03/12/25 03/12/25 Furosemide [Lasix] 20 mg PO DAILY 03/12/25 03/12/25 Magnesium 250 mg PO HS 03/12/25 03/12/25 Magnesium 500 mg PO DAILY 03/12/25 03/12/25 Spironolactone [Aldactone] 25 mg PO BID 03/12/25 03/12/25 Allergies Allergy/AdvReac Type Severity Reaction Status Date / Time naproxen Allergy Anaphylaxis Verified 03/12/25 15:56 simvastatin [From Zocor] AdvReac Nausea & Verified 03/12/25 15:56 Vomiting Review of Systems ROS Statement: Those systems with pertinent positive or pertinent negative responses have been documented in the HPI. ROS Other: All systems not noted in ROS Statement are negative. Past Medical History Past Medical History: COPD, Diabetes Mellitus History of Any Multi-Drug Resistant Organisms: None Reported Additional Past Surgical History / Comment(s): cataracts Past Psychological History: No Psychological Hx Reported Smoking Status: Former smoker Past Alcohol Use History: None Reported Past Drug Use History: None Reported General Exam - General Exam Comments Initial Comments: PE: CONSTITUTIONAL: No apparent distress, chronic ill-appearing SKIN: Warm, dry, no jaundice, hives or petechiae EYES: Pupils are equally round, extraocular movements intact without nystagmus, clear conjunctiva, non-icteric sclera HENT: Normocephalic, atraumatic, moist mucus membranes, oropharynx clear without exudates NECK: , Full range of motion, normal appearance PULMONARY: Crackles and rales throughout the right lung field, wheezes bilate rally, decreased excursion, no tachypnea or accessory muscle use or stridor CARDIOVASCULAR: Regular rate, rhythm, normal S1 and S2., Soft holosystolic murmur no rubs or gallops. Strong radial pulses with intact distal perfusion. No lower extremity edema GASTROINTESTINAL: Soft, active bowel sounds throughout, non-tender, distended, no palpable masses, no rebound or guarding. No hepatomegaly GENITOURINARY: MUSCULOSKELETAL: Extremities have no gross deformity, no edema, redness, or swelling. No calf swelling NEUROLOGIC:_a/o x 3, GCS 15, normal mentation and speech. Moves all extremities x 4 without motor or sensory deficit PSYCHIATRIC:_normal mood and affect, thought process is clear and linear Course Vital Signs 03/12/25 03/12/25 03/12/25 14:01 16:17 16:53 Temperature 99.7 F H Pulse Rate 103 H 100 Respiratory 24 20 Rate Blood Pressure 132/74 O2 Sat by Pulse 89 L Oximetry 03/12/25 03/12/25 03/12/25 17:20 18:38 19:23 Temperature 99.6 F Pulse Rate 112 H 102 H 96 Respiratory 25 H 18 Rate Blood Pressure 131/53 117/50 O2 Sat by Pulse 91 L 92 L Oximetry 03/12/25 03/12/25 03/13/25 19:48 21:37 04:53 Temperature Pulse Rate 96 103 H 86 Respiratory 18 18 Rate Blood Pressure 115/50 109/65 O2 Sat by Pulse 95 94 L Oximetry 03/13/25 03/13/25 03/13/25 06:40 08:00 08:41 Temperature Pulse Rate 83 74 77 Respiratory 18 18 18 Rate Blood Pressure 117/55 119/81 O2 Sat by Pulse 96 100 95 Oximetry 03/13/25 03/13/25 03/13/25 08:48 10:00 12:00 Temperature 97.8 F Pulse Rate 83 92 86 Respiratory 18 16 18 Rate Blood Pressure 111/87 112/53 O2 Sat by Pulse 92 L 98 Oximetry 03/13/25 03/13/25 03/13/25 13:49 13:57 14:00 Temperature Pulse Rate 85 88 93 Respiratory 18 18 18 Rate Blood Pressure 126/58 O2 Sat by Pulse 95 Oximetry 03/13/25 03/13/25 03/13/25 16:00 17:37 17:46 Temperature Pulse Rate 87 95 92 Respiratory 18 18 18 Rate Blood Pressure 120/57 O2 Sat by Pulse 97 Oximetry 03/13/25 03/13/25 03/13/25 18:00 19:34 19:37 Temperature 97.9 F Pulse Rate 97 94 94 Respiratory 20 16 Rate Blood Pressure 122/61 130/64 O2 Sat by Pulse 94 L 94 L Oximetry 03/13/25 03/13/25 03/14/25 19:53 22:21 02:28 Temperature Pulse Rate 101 H 87 80 Respiratory 16 16 Rate Blood Pressure 140/77 132/55 O2 Sat by Pulse 95 94 L Oximetry 03/14/25 03/14/25 03/14/25 06:01 08:00 08:51 Temperature Pulse Rate 77 76 80 Respiratory 18 20 Rate Blood Pressure 100/60 97/79 O2 Sat by Pulse 96 92 L 97 Oximetry 03/14/25 09:04 Temperature Pulse Rate 84 Respiratory Rate Blood Pressure O2 Sat by Pulse Oximetry EKG Findings - EKG Comments: EKG Findings:: Sinus rhythm with first-degree AV block, SD interval 234 ms QT/QTc within normal limits, left axis deviation, no significant ST elevations or depressions, no arrhythmia Medical Decision Making - Medical Decision Making Was pt. sent in by a medical professional or institution (KEREN Hancock, BALLET PROFESSOR, urgent care, hospital, or halfway...) When possible be specific @ -No Did you speak to anyone other than the patient for history (EMS, parent, family, police, friend...)? What history was obtained from this source @ -Spoke with patient's , who describes patient having green sputum, said that he was mowing "nasty grass" earlier this week and suspects that may have triggered his shortness of breath Did you review nursing and triage notes (agree or disagree)? Why? @ -I reviewed and agree with nursing and triage notes Were old charts reviewed (outside hosp., previous admission, EMS record, old EKG, old radiological studies, urgent care reports/EKG's, halfway records)? Report findings @ -Medical records reviewed- Reviewed echocardiogram report from 04/06/24, showed EF 60-65%, moderate to severe aortic stenosis Differential Diagnosis (chest pain, altered mental status, abdominal pain women, abdominal pain men, vaginal bleeding, weakness, fever, dyspnea, syncope, headache, dizziness, GI bleed, back pain, seizure, CVA, palpatations, mental health, musculoskeletal)? Differential diagnosis remains broad however top considerations include pneumonia, COPD, CHF, anemia, arrythmia, tamponade, this is not all inclusive list EKG interpreted by me (3pts min.). @ -As above X-rays interpreted by me (1pt min.). @ -Personally reviewed CXR, +cardiomegaly, small bilateral pleural effusions, question RLL consolidation CT interpreted by me (1pt min.). @ -None done U/S interpreted by me (1pt. min.). @ -None done What testing was considered but not performed or refused? (CT, X-rays, U/S, labs)? Why? @ -None What meds were considered but not given or refused? Why? @ -None Did you discuss the management of the patient with other professionals (professionals i.e. KEREN Hancock, BALLET PROFESSOR, lab, RT, psych nurse, clinical social work therapist, life skills teacher, teacher, division officer weapons department, caser)? Give summary @ -No Was smoking cessation discussed for >3mins.? @ -No Was critical care preformed (if so, how long)? @Yes 35 minutes Were there social determinants of health that impacted care today? How? (Homelessness, low income, unemployed, alcoholism, drug addiction, transportation, low edu. Level, literacy, decrease access to med. care, retirement, rehab)? @ -No Was there de-escalation of care discussed even if they declined (Discuss DNR or withdrawal of care, Hospice)? @ -No What co-morbidities impacted this encounter? (DM, HTN, Smoking, COPD, CAD, Cancer, CVA, ARF, Chemo, Hep., AIDS, mental health diagnosis, sleep apnea, morbid obesity)? @COPD Was patient admitted / discharged? Hospital course, mention meds given and route, prescriptions, significant lab abnormalities, going to OR and other pertinent info. @Admission this is a pleasant 79-year-old gentleman presenting today for shortness of breath, increased sputum production. Patient is borderline febrile on arrival temp 99.7, tachycardic heart rate 105, SpO2 89% on home 2 L. Patient was placed on 4 L oxygen nasal cannula on arrival to the ER. On my assessment he is not tachypneic though does have conversational dyspnea, has crackles over the right lung field as well as wheezes bilaterally. No lower extremity swelli ng. Abdomen is distended but nontender. Differential dx as noted above however top considerations include community-acquired pneumonia, discussed with patient plan for nebulizers, antibiotics, chest x-ray. Anticipate admission, patient is agreeable plan of care Labs are significant for leukocytosis white blood cell at 17.12, BUN 24, creatinine 1.05, lactic of 3.8, total bilirubin 2.2, BNP 503, troponin 0.013. Despite elevated lactic, given patient's pulmonary exam, chest x-ray findings and abdominal distention I remain concerned for some aspect of fluid overload contributing to difficulty in breathing I suspect leukocytosis is secondary to hypoxemia. For this reason IV fluids were not administered. Patient does take 20 mg of Lasix daily so 40 mg IV Lasix were ordered. On reassessment patient endorsed improvement of his symptoms. He is resting comfortably. Discussed plan for admission to which he is agreeable. Case discussed with Dr. Zuluaga, who kindly accepted pt for admission. Undiagnosed new problem with uncertain prognosis? @ -No Drug Therapy requiring intensive monitoring for toxicity (Heparin, Nitro, Insulin, Cardizem)? @ -No Were any procedures done? @ -No Diagnosis/symptom? @ Acute CHF, acute on chronic hypoxemic respiratory failure, COPD exacerbation, CAP Acute, or Chronic, or Acute on Chronic? @ -acute/ acute on chronic Uncomplicated (without systemic symptoms) or Complicated (systemic symptoms)? complicated Side effects of treatment? @ -No Exacerbation, Progression, or Severe Exacerbation? @exacerbation and progression Poses a threat to life or bodily function? How? (Chest pain, [place], [place], pneumonia, PE, COPD, DKA, ARF, appy, cholecystitis, CVA, Diverticulitis, Homicidal, Suicidal, threat to staff... and all critical care pts) @Yes - Lab Data Result diagrams: 03/14/25 04:21 03/14/25 04:21 Lab Results 03/12/25 03/12/25 03/12/25 Range/Units 16:17 16:17 16:17 WBC 17.12 H (4.50-10.00) 10*3/uL RBC 4.77 (4.40-5.60) 10*6/uL Hgb 14.7 (13.0-17.0) g/dL Hct 44.9 (39.6-50.0) % MCV 94.1 (80.0-97.0) fL MCH 30.8 (27.0-32.0) pg MCHC 32.7 (32.0-37.0) g/dL Plt Count 107 L (140-440) 10*3/uL MPV 10.3 (9.5-12.2) fL Immature Gran % (Auto) 0.9 % Neutrophils % (Manual) 79 % Band Neuts % (Manual) 7 % Lymphocytes % (Manual) 9 % Monocytes % (Manual) 3 % Eosinophils % (Manual) 2 % Immature Gran # 0.15 H (0.00-0.04) 10*3/uL Neutrophils # (Manual) 14.72 H (1.3-7.7) k/uL Lymphocytes # (Manual) 1.54 (1.0-4.8) k/uL Monocytes # (Manual) 0.51 (0-1.0) k/uL Eosinophils # (Manual) 0.34 (0-0.7) k/uL Nucleated RBCs 0 (0-0) /100 WBC Manual Slide Review Performed PT 11.7 (10.0-12.5) sec INR 1.1 (<1.2) APTT 28.0 (22.0-30.0) sec Sodium 137 (137-145) mmol/L Potassium 4.9 (3.5-5.1) mmol/L Chloride 98 (98-107) mmol/L Carbon Dioxide 28 (22-30) mmol/L Anion Gap 11 mmol/L BUN 24 H (9-20) mg/dL Creatinine 1.05 (0.66-1.25) mg/dL Est GFR (CKD-EPI)AfAm 78 (>60 ml/min/1.73 sqM) Est GFR (CKD-EPI)NonAf 67 (>60 ml/min/1.73 sqM) Glucose 111 H (74-99) mg/dL Lactic Ac Sepsis Rflx Plasma Lactic Acid Jonathon (0.7-2.0) mmol/L Calcium 9.3 (8.4-10.2) mg/dL Total Bilirubin 2.2 H (0.2-1.3) mg/dL AST 36 (17-59) U/L ALT 33 (4-49) U/L Alkaline Phosphatase 100 (38-126) U/L Troponin I (0.000-0.034) ng/mL NT-Pro-B Natriuret Pep 503 pg/mL Total Protein 6.5 (6.3-8.2) g/dL Albumin 3.9 (3.5-5.0) g/dL 03/12/25 03/12/25 03/12/25 Range/Units 16:17 16:17 17:08 WBC (4.50-10.00) 10*3/uL RBC (4.40-5.60) 10*6/uL Hgb (13.0-17.0) g/dL Hct (39.6-50.0) % MCV (80.0-97.0) fL MCH (27.0-32.0) pg MCHC (32.0-37.0) g/dL Plt Count (140-440) 10*3/uL MPV (9.5-12.2) fL Immature Gran % (Auto) % Neutrophils % (Manual) % Band Neuts % (Manual) % Lymphocytes % (Manual) % Monocytes % (Manual) % Eosinophils % (Manual) % Immature Gran # (0.00-0.04) 10*3/uL Neutrophils # (Manual) (1.3-7.7) k/uL Lymphocytes # (Manual) (1.0-4.8) k/uL Monocytes # (Manual) (0-1.0) k/uL Eosinophils # (Manual) (0-0.7) k/uL Nucleated RBCs (0-0) /100 WBC Manual Slide Review PT (10.0-12.5) sec INR (<1.2) APTT (22.0-30.0) sec Sodium (137-145) mmol/L Potassium (3.5-5.1) mmol/L Chloride (98-107) mmol/L Carbon Dioxide (22-30) mmol/L Anion Gap mmol/L BUN (9-20) mg/dL Creatinine (0.66-1.25) mg/dL Est GFR (CKD-EPI)AfAm (>60 ml/min/1.73 sqM) Est GFR (CKD-EPI)NonAf (>60 ml/min/1.73 sqM) Glucose (74-99) mg/dL Lactic Ac Sepsis Rflx Y Plasma Lactic Acid Jonathon 3.8 H* (0.7-2.0) mmol/L Calcium (8.4-10.2) mg/dL Total Bilirubin (0.2-1.3) mg/dL AST (17-59) U/L ALT (4-49) U/L Alkaline Phosphatase (38-126) U/L Troponin I 0.017 (0.000-0.034) ng/mL NT-Pro-B Natriuret Pep pg/mL Total Protein (6.3-8.2) g/dL Albumin (3.5-5.0) g/dL Disposition Clinical Impression: Acute on chronic hypoxic respiratory failure, Community acquired pneumonia, COPD exacerbation, Congestive heart failure Disposition: ADMITTED IP TO THIS HOSP Condition: Stable
--- NOTE | 2025-03-12 16:30 | XR ---
EXAMINATION TYPE: XR chest 2V DATE OF EXAM: 03/12/2025 4:23 PM COMPARISON: Chest radiograph 05/05/2024. CLINICAL INDICATION: Male, 79 years old with history of difficulty breathing; [facility] TECHNIQUE: XR chest 2V Frontal and lateral views of the chest. FINDINGS: Lungs/Pleura: Small bilateral pleural effusions. No pneumothorax. Pulmonary vascularity: Pulmonary vascular congestion. Heart/mediastinum: Cardiomediastinal silhouette is prominent in size. Musculoskeletal: No acute osseous pathology. Other findings: None IMPRESSION: Cardiomegaly, small effusions and pulmonary vascular congestion suggestive of underlying CHF. [facility], , 03/12/2025 4:28 PM
[2025-03-12 16:35] LABS: HCT 44.9 % (39.6-50.0); HGB 14.7 g/dL (13.0-17.0); MCH 30.8 pg (27.0-32.0); MCHC 32.7 g/dL (32.0-37.0); MCV 94.1 fL (80.0-97.0); Mean Platelet Volume 10.3 fL (9.5-12.2); Platelet Count 107 10*3/uL (140-440); RBC 4.77 10*6/uL (4.40-5.60); RDW 14.1 % (11.5-14.5); WBC 17.12 10*3/uL (4.50-10.00)
[2025-03-12] MEDS: methylPREDNISolone SOD SUCCI 125 MG/2 ML VIAL IV STA (16:37)
[2025-03-12 16:46] LABS: INR 1.1 (<1.2); Prothrombin Time 11.7 sec (10.0-12.5)
[2025-03-12 16:50] LABS: ALT 33 U/L (4-49); AST 36 U/L (17-59); African American GFR (CKD) 78 (>60 ml/min/1.73 sqM); Albumin 3.9 g/dL (3.5-5.0); Alkaline Phosphatase 100 U/L (38-126); Anion Gap 11 mmol/L; Blood Urea Nitrogen 24 mg/dL (9-20); Calcium 9.3 mg/dL (8.4-10.2); Carbon Dioxide 28 mmol/L (22-30); Chloride 98 mmol/L (98-107); Glucose 111 mg/dL (74-99); Non-African American GFR(CKD) 67 (>60 ml/min/1.73 sqM); Potassium 4.9 mmol/L (3.5-5.1); Sodium 137 mmol/L (137-145); Total Bilirubin 2.2 mg/dL (0.2-1.3); Total Protein 6.5 g/dL (6.3-8.2)
[2025-03-12] MEDS: ALBUTEROL NEBULIZED 2.5 MG/3 ML INHALATION SCH (16:51)
[2025-03-12] MEDS: IPRATROPIUM 0.5 MG/2.5 ML NEBU INHALATION STA ×2 (16:52→17:03)
[2025-03-12 16:58] LABS: NT-Pro-B-Type Natriuretic Pept 503 pg/mL
[2025-03-12 17:01] LABS: Band Neutrophils % 7 %; Eosinophils # (M) 0.34 k/uL (0-0.7); Lymphocytes # (M) 1.54 k/uL (1.0-4.8); Monocytes # (M) 0.51 k/uL (0-1.0); Neutrophils # (M) 14.72 k/uL (1.3-7.7); Neutrophils % (M) 79 %; Nucleated Red Blood Cells 0 /100 WBC (0-0); Total Cells Counted 100
[2025-03-12] MEDS: AZITHROMYCIN 500 MG in SODIUM CHLORIDE 0.9% 250 ML IVPB STA (17:12)
[2025-03-12] MEDS ORDERED: IPRATROPIUM-ALBUTEROL 3 ML NEB INHALATION PRN (18:50)
[2025-03-12] MEDS ORDERED: PNEUMONIA PROTOCOL UTILIZED 1 EACH MISC PO PRN (18:50)
[2025-03-12] MEDS: FUROSEMIDE 10 MG/ML 4 ML VIAL IV STA (19:28)
[2025-03-12] MEDS: IPRATROPIUM-ALBUTEROL 3 ML NEB INHALATION STA (19:44)
[2025-03-12] MEDS: IPRATROPIUM-ALBUTEROL 3 ML NEB INHALATION SCH (19:48)
[2025-03-12] MEDS: SYMBICORT 80-4.5 MCG INHALER INHALATION SCH (19:48)
[2025-03-12] MEDS ORDERED: NON FORMULARY DRUG (Ipratropium/Albuter 20-100mcg 120 PUFF Each) INHALATION SCH (20:00)
[2025-03-12] MEDS: MAGNESIUM OXIDE 400 MG TAB PO SCH (21:39)
[2025-03-12] MEDS: metFORMIN 500 MG TAB PO SCH (21:39)
[2025-03-12] MEDS: SPIRONOLACTONE 25 MG TAB PO SCH (21:40)
[2025-03-12] MEDS: ARTIFICIAL TEARS-HYPROMELLOSE DROPS 15 ML BTL BOTH EYES SCH (23:06)
[2025-03-13] MEDS ORDERED: DEXTROSE 50% SYRINGE 50 ML IVP PRN ×2 (01:12)
--- NOTE | 2025-03-13 01:18 | P.HPIM ---
History of Present Illness H&P Date: 03/12/25 Chief Complaint: shortness of breath 79-year-old male with COPD on 2 L oxygen at home Patient coming in with 2 to 3-day history of progressive shortness of breath associated with pleuritic chest pain and productive cough of greenish sputum denies any hemoptysis. His breathing Getting worse he required more oxygen he typically uses 2 L. He started noticing that his left leg is getting swollen. Denies any recent travel or hospital stay denies any history of blood clots denies any trauma to the leg. He also reports some nausea denies any vomiting fever denies any abdominal pain. Patient denies tobacco smoking illicit drugs or heavy alcohol review of systems Pertinent positives as noted in HPI. All other systems were reviewed and are negative on exam Constitutional: Patient is cooperative and pleasant however seems to be slightly confused Eyes: Anicteric sclerae, moist conjunctiva, Pupils equal round reactive to light ENMT: NC/AT Oropharynx clear, no erythema, or exudates Lungs: Decreased breath sounds at lung bases with crackles and some occasional rhonchi Clear to percussion Normal respiratory effort, no accessory muscle use Cardiovascular: Heart regular in rate and rhythm, Systolic murmurs, no gallops, or rubs No peripheral edema Abdominal: Soft Nontender, no guarding, rebound or rigidity Abdomen moving with respiration Normoactive bowel sounds Extremities: No digital cyanosis No clubbing Pedal pulses intact and symmetrical Radial pulses intact and symmetrical No calf tenderness Psychiatric: Alert and oriented to person, place Neuro Muscles Strength 4/5 in all 4 extremities Sensation to light touch grossly present throughout Cranial nerves II-XII grossly intact Past Medical History Past Medical History: COPD, Diabetes Mellitus History of Any Multi-Drug Resistant Organisms: None Reported Additional Past Surgical History / Comment(s): cataracts Past Psychological History: No Psychological Hx Reported Smoking Status: Former smoker Past Alcohol Use History: None Reported Past Drug Use History: None Reported Medications and Allergies Home Medications Medication Instructions Recorded Confirmed Type Artificial Tears-Hypromellose 1 drop BOTH EYES QID 04/06/24 03/12/25 History [Artificial Tear Drops] Fluticasone Propion/Salmeterol 1 puff INHALATION RT-BID 04/06/24 03/12/25 History [Advair 100-50 Diskus] Ipratropium/Albuter 20-100Mcg 1 puff INHALATION RT-QID 04/06/24 03/12/25 History [Combivent Respimat 20-100Mcg Inhaler] Loratadine 10 mg PO DAILY 04/06/24 03/12/25 History Metoprolol Succinate (ER) [Toprol 12.5 mg PO DAILY 04/06/24 03/12/25 History XL] metFORMIN HCL 1,000 mg PO BID 04/06/24 03/12/25 History Clotrimazole Cream [Lotrimin Cream] 1 applic TOPICAL BID 03/12/25 03/12/25 History Fiber Gummies Sugar Free 1 tab PO DAILY 03/12/25 03/12/25 History Furosemide [Lasix] 20 mg PO DAILY 03/12/25 03/12/25 History Magnesium 250 mg PO HS 03/12/25 03/12/25 History Magnesium 500 mg PO DAILY 03/12/25 03/12/25 History Spironolactone [Aldactone] 25 mg PO BID 03/12/25 03/12/25 History Allergies Allergy/AdvReac Type Severity Reaction Status Date / Time naproxen Allergy Anaphylaxis Verified 03/12/25 15:56 simvastatin [From Zocor] AdvReac Nausea & Verified 03/12/25 15:56 Vomiting Physical Exam Vitals: Vital Signs Temp Pulse Resp BP Pulse Ox 03/12/25 21:37 103 H 18 115/50 95 03/12/25 19:48 96 03/12/25 19:23 99.6 F 96 18 117/50 92 L 03/12/25 18:38 102 H 25 H 131/53 91 L 03/12/25 17:20 112 H 03/12/25 16:53 100 03/12/25 16:17 20 03/12/25 14:01 99.7 F H 103 H 24 132/74 89 L Intake and Output 03/12/25 03/12/25 03/12/25 06:59 14:59 22:59 Other: Weight 104.78 kg Results CBC & Chem 7: 03/12/25 16:17 03/12/25 16:17 Labs: Abnormal Lab Results - Last 24 Hours (Table) 03/12/25 03/12/25 03/12/25 Range/Units 16:17 16:17 16:17 WBC 17.12 H (4.50-10.00) 10*3/uL Plt Count 107 L (140-440) 10*3/uL Immature Gran # 0.15 H (0.00-0.04) 10*3/uL Neutrophils # (Manual) 14.72 H (1.3-7.7) k/uL BUN 24 H (9-20) mg/dL Glucose 111 H (74-99) mg/dL Plasma Lactic Acid Jonathon 3.8 H* (0.7-2.0) mmol/L Total Bilirubin 2.2 H (0.2-1.3) mg/dL 03/12/25 Range/Units 19:26 WBC (4.50-10.00) 10*3/uL Plt Count (140-440) 10*3/uL Immature Gran # (0.00-0.04) 10*3/uL Neutrophils # (Manual) (1.3-7.7) k/uL BUN (9-20) mg/dL Glucose (74-99) mg/dL Plasma Lactic Acid Jonathon 3.8 H* (0.7-2.0) mmol/L Total Bilirubin (0.2-1.3) mg/dL Assessment and Plan Assessment: 79-year-old male with COPD on home oxygen coming in with progressive shortness of breath I discussed case with ED doctor and accepted the admission for acute COPD exacerbation with anticipated length of stay more than 2 midnights Acute on chronic hypoxic respiratory failure Acute COPD exacerbation Chest x-ray showed small bilateral pleural effusion and pulmonary vascular congestion Leukocytosis with white count of 17 Afebrile Lactic acidosis 3.8 Troponins negative In the ED patient was started on antibiotic coverage for community-acquired pneumonia with azithromycin 500 mg IV piggyback daily and Rocephin 2 g IV piggyback daily we will continue with that for now Follow-up cultures Supplemental oxygen as needed Continue with inhalers Continue with DuoNebs as needed Lasix 40 mg IV push given in the ED, will discontinue and monitor response due to patient underlying severe aortic stenosis Continue with spironolactone Check echocardiogram from March of last year LVEF 60% however had severe aortic valve stenosis Cardiology consulted for severe aortic valve stenosis Diabetes mellitus Insulin sliding scale Renal function unremarkable sodium 137 potassium 4.9 BUN 24 creatinine 1 Full code DVT prophylaxis Lovenox 40 mg subcu daily
--- NOTE | 2025-03-13 03:28 | P.CNPUL ---
History of Present Illness Consult date: 03/13/25 Requesting physician: Monica Wood Reason for consult: COPD Chief complaint: Shortness of breath History of present illness: Patient is a 79-year-old male with past medical history significant for COPD, chronic hypoxemic respiratory failure utilizing 2 L/min nasal cannula mostly at night, former tobacco smoker, diabetes mellitus, and valvular heart disease. Most recent available echocardiogram from March, estimating left ventricular ejection fraction of 60 to 65% with moderate to severe aortic stenosis, trace MR, and trace tricuspid regurgitation. He follows at the [facility]. Presents the emergency department yesterday afternoon with a chief complaint of increased work of breathing and productive cough, progressively worsening since Thursday. Chest x-ray showing cardiomegaly pulmonary vascular congestion, and small pleural effusions. NT proBNP only 503. CBC remarkable for leukocytosis with a WBC count of 17.1. Hemoglobin 14.7 and platelets 107. BMP unremarkable, electrolytes WDL, creatinine 1.05, glucose 111. Serial lactic's on the rise, currently 6.4. Patient currently being evaluated in the emergency department. Sitting in the recliner at the bedside. He is on 4 L/min nasal cannula, does not appear in any respiratory distress. SpO2 is reading 95% on bedside monitor. Endorsing increasing worsening shortness of breath since Thursday. Normally requiring 2 L/min nasal cannula while at home, which he increased to 4 L/min nasal cannula. Associated congested and productive cough with "gooey" green sputum. Originally, noted is brown in color. Subjective fevers at home, recorded 99.7 F in the ED. Denies any sick contacts or recent travel. States he lives at home alone. Previously received doses of azithromycin and Rocephin. Denies any chest pain heart palpitations, lightheadedness, or increased lower extremity swelling. He does take Lasix on an outpatient basis. Denies missing any doses. Did receive a dose of 40 mg IV push Lasix in the ED. Also, his COPD was previously felt to be active and was started on combination of DuoNebs, Symbicort inhaler, and loaded with IV Solu-Medrol. Review of Systems Constitutional: Reports chills, Reports fatigue, Reports fever, Reports poor appetite, Denies sweats, Denies weight gain, Denies weight loss Ears, nose, mouth and throat: Reports headache, Denies nasal congestion, Denies nasal discharge, Denies post-nasal drip, Denies sinus pain, Denies sinus pressure, Denies sore throat Cardiovascular: Reports as per HPI Respiratory: Reports as per HPI Gastrointestinal: Reports nausea, Denies abdominal pain, Denies constipation, Denies diarrhea, Denies vomiting Genitourinary: Denies dysuria Musculoskeletal: Denies limitation of motion Integumentary: Denies rash, Denies wounds Neurological: Denies seizures, Denies syncope Psychiatric: Denies anxiety, Denies depression Past Medical History Past Medical History: COPD, Diabetes Mellitus History of Any Multi-Drug Resistant Organisms: None Reported Additional Past Surgical History / Comment(s): cataracts Past Psychological History: No Psychological Hx Reported Smoking Status: Former smoker Past Alcohol Use History: None Reported Past Drug Use History: None Reported Medications and Allergies Home Medications Medication Instructions Recorded Confirmed Type Artificial Tears-Hypromellose 1 drop BOTH EYES QID 04/06/24 03/12/25 History [Artificial Tear Drops] Fluticasone Propion/Salmeterol 1 puff INHALATION RT-BID 04/06/24 03/12/25 History [Advair 100-50 Diskus] Ipratropium/Albuter 20-100Mcg 1 puff INHALATION RT-QID 04/06/24 03/12/25 History [Combivent Respimat 20-100Mcg Inhaler] Loratadine 10 mg PO DAILY 04/06/24 03/12/25 History Metoprolol Succinate (ER) [Toprol 12.5 mg PO DAILY 04/06/24 03/12/25 History XL] metFORMIN HCL 1,000 mg PO BID 04/06/24 03/12/25 History Clotrimazole Cream [Lotrimin Cream] 1 applic TOPICAL BID 03/12/25 03/12/25 History Fiber Gummies Sugar Free 1 tab PO DAILY 03/12/25 03/12/25 History Furosemide [Lasix] 20 mg PO DAILY 03/12/25 03/12/25 History Magnesium 250 mg PO HS 03/12/25 03/12/25 History Magnesium 500 mg PO DAILY 03/12/25 03/12/25 History Spironolactone [Aldactone] 25 mg PO BID 03/12/25 03/12/25 History Allergies Allergy/AdvReac Type Severity Reaction Status Date / Time naproxen Allergy Anaphylaxis Verified 03/12/25 15:56 simvastatin [From Zocor] AdvReac Nausea & Verified 03/12/25 15:56 Vomiting Physical Exam Vitals: Vital Signs Temp Pulse Resp BP Pulse Ox 03/12/25 21:37 103 H 18 115/50 95 03/12/25 19:48 96 03/12/25 19:23 99.6 F 96 18 117/50 92 L 03/12/25 18:38 102 H 25 H 131/53 91 L 03/12/25 17:20 112 H 03/12/25 16:53 100 03/12/25 16:17 20 03/12/25 14:01 99.7 F H 103 H 24 132/74 89 L Intake and Output 03/12/25 03/12/25 03/13/25 14:59 22:59 06:59 Other: Weight 104.78 kg GENERAL EXAM: Alert, obese male, sitting in bedside recliner, comfortable in no apparent distress. HEAD: Normocephalic and atraumatic EYES: Normal reaction of pupils, equal size. NOSE: Clear with pink turbinates. THROAT: No erythema or exudates. NECK: No masses, no JVD. CHEST: No chest wall deformity. LUNGS: Equal air entry with scattered rhonchi and bibasilar crackles. On 4 L/min nasal cannula. No conversational dyspnea or accessory muscle use.. CVS: S1 and S2 normal with systolic murmur, regular rhythm. No other extra heart sounds ABDOMEN: No hepatosplenomegaly, active bowel sounds, no guarding or rigidity. SPINE: No scoliosis or deformity SKIN: No rashes CENTRAL NERVOUS SYSTEM: No focal deficits, tone is normal in all 4 extremities. EXTREMITIES: There is no peripheral edema, clubbing, or cyanosis. Peripheral pulses are intact. Results - Laboratory Findings CBC and BMP: 03/12/25 16:17 03/13/25 14:29 PT/INR, D-dimer PT 11.7 sec (10.0-12.5) 03/12/25 16:17 INR 1.1 (<1.2) 03/12/25 16:17 Abnormal lab findings: Abnormal Labs 03/12/25 03/12/25 03/12/25 16:17 16:17 16:17 WBC 17.12 H Plt Count 107 L Immature Gran # 0.15 H Neutrophils # (Manual) 14.72 H BUN 24 H Glucose 111 H Plasma Lactic Acid Jonathon 3.8 H* Total Bilirubin 2.2 H 03/12/25 03/13/25 19:26 00:02 WBC Plt Count Immature Gran # Neutrophils # (Manual) BUN Glucose Plasma Lactic Acid Jonathon 3.8 H* 6.4 H* Total Bilirubin - Diagnostic Findings Chest x-ray: image reviewed Assessment and Plan Assessment: Acute on chronic hypoxemic respiratory failure, suspect secondary to acute COPD exacerbation, chest x-ray remarkable for cardiomegaly, pulmonary vascular congestion, and small pleural effusions. NT proBNP only 503. History of moderate to severe aortic stenosis Acute leukocytosis Lactic acidemia, consider metformin induced, improving Chronic hypoxemic respiratory failure, normally utilizes 2 L/min nasal cannula History of alcohol abuse Hypertension Diabetes mellitus, type II Obesity, with a BMI of 37.3 kg/m Plan: Continue supplemental oxygen maintain oxygen saturation of 90% or greater Continue combination of DuoNebs, Symbicort, and IV Solu-Medrol Continue empiric antibiotics Chest x-ray remarkable for cardiomegaly, pulmonary vascular congestion, and possible small bilateral effusions. NT proBNP was only 503. Previously received a dose of IV Lasix 40 mg in the ED. Most recent available echocardiogram reviewed Cardiology is consulted Case to be reviewed with my supervising physician, additional recommendations to follow I have personally seen and examined the patient, performed the documentation and the assessment and plan as written. Number of minutes spent on the visit:20 Joint evaluation that was done along with the nurse practitioner. This evaluation was done and 32 minutes. The patient was hospitalized for an acute COPD exacerbation. Chest x-ray also shows cardiomegaly and pulm vessel congestion. proBNP is mildly elevated. He is known to have moderate to severe aortic stenosis. The patient is currently on DuoNeb the regiment [id number], IV Solu-Medrol and Symbicort. The patient is also on empiric antibiotic coverage with IV Rocephin and Zithromax. The lactic acid level is elevated although it is improving down to 6.5. Renal function stable. Electrolytes are stable. White cell count is 17.2. Sputum Gram stain and culture still pending for now. Chest x-ray was reviewed and it shows cardiomegaly and small pleural effusion and pulm vascular congestion consistent with CHF. Otherwise, no other complaints for now. Cardiology is on the case. Echocardiogram from 04/06/2024 was noted and the patient has moderate to severe aortic stenosis. Preserved LV function. Suggest repeating echocardiogram. Will continue to follow. Time with Patient: Greater than 30
[2025-03-13 05:12] LABS: Glucose,Whole Blood 224 mg/dL (70-110)
[2025-03-13] MEDS: methylPREDNISolone SOD SUCCI 125 MG/2 ML VIAL IV SCH (06:37)
[2025-03-13 07:34] LABS: Glucose,Whole Blood 204 mg/dL (70-110)
[2025-03-13] MEDS: INSULIN LISPRO (HumaLOG) 100 UNIT/ML 10 mL VL SQ SCH (08:02)
[2025-03-13] MEDS: AZITHROMYCIN 500 MG TAB PO SCH (08:26)
[2025-03-13] MEDS: LORATADINE 10 MG TAB PO SCH (08:26)
[2025-03-13] MEDS: METOPROLOL SUCCINATE (ER) 25 MG TAB.ER.24H PO SCH (08:27)
[2025-03-13] MEDS: ENOXAPARIN 40 MG/0.4 ML SYRINGE SQ SCH (08:31)
[2025-03-13] MEDS: SYMBICORT 160-4.5 MCG INHALER INHALATION SCH (08:40)
[2025-03-13] MEDS ORDERED: FUROSEMIDE 20 MG TAB PO SCH (09:00)
[2025-03-13] MEDS ORDERED: NON FORMULARY DRUG (Magnesium [Magnesium] 250 MG Tablet) PO SCH (09:00)
[2025-03-13] MEDS: METOPROLOL SUCCINATE (ER) 25 MG TAB.ER.24H PO STA (10:05)
--- NOTE | 2025-03-13 10:18 | P.CRDCN ---
History of Present Illness History of present illness: HISTORY OF PRESENTING ILLNESS This is a pleasant 79-year-old male past medical history significant for hypertension, dyslipidemia, COPD, diabetes mellitus, aortic stenosis, obesity and former nicotine dependence. He follows in the office with cardiology at the [facility]. We have been asked to see in consultation for aortic stenosis. He has known moderate to severe aortic stenosis and indicates he is seen at the [facility] every 6 months and they have discussed valve replacement but currently being managed medically. He is presented to the hospital with symptoms of cough, congestion and shortness of breath. He has been seen by pulmonology and is currently receiving IV steroids and antibiotics. His cough is thick dark mucus productive. He has no chest pain, dizziness or palpitatio ns. The last echo that we have here in [place] was done in 2023 and mean gradient was 30 at that time. Chest x-ray reveals small effusions and pulmonary vascular congestion. Laboratory data reviewed, lactic acid 5.8, WBC 17, hemoglobin 14.7, platelets 107, sodium 137, potassium 4.9, creatinine 1.05, opponent negative x 1 and NT proBNP 503. EKG reveals sinus mechanism heart rate of 81 with first-degree AV block. Current daily cardiac medications include Lasix 20 mg daily, metoprolol succinate 12.5 mg daily and Aldactone 25 mg twice daily. REVIEW OF SYSTEMS At the time of my exam: CONSTITUTIONAL: Denies fever or chills. CARDIOVASCULAR: Denies chest pain, orthopnea, PND or palpitations. RESPIRATORY: Complains of shortness of breath and cough. GASTROINTESTINAL: Denies abdominal pain, diarrhea, constipation, nausea or vomiting. MUSCULOSKELETAL: Denies myalgias. NEUROLOGIC: Denies numbness, tingling, headache or weakness. ENDOCRINE: Denies fatigue, weight change, polydipsia or polyurina. GENITOURINARY: Denies burning, hematuria or urgency with micturation. HEMATOLOGIC: Denies history of anemia or bleeding. PHYSICAL EXAMINATION Blood pressure 111/87 heart rate 92 afebrile and maintaining oxygen saturation on nasal cannula. CONSTITUTIONAL: No apparent distress. HEENT: Head is normocephalic. Pupils are equal, round. Sclerae anicteric. Mucous membranes of the mouth are moist. No JVD. No carotid bruit. CHEST EXAMINATION: Bibasilar rales, no rhonchi or wheezes. No chest wall tenderness is noted on palpation or with deep breathing. HEART EXAMINATION: Regular rate and rhythm. S1, S2 heard. Systolic ejection murmur at the base, no gallops or rub. ABDOMEN: Soft, nontender. EXTREMITIES: 2+ peripheral pulses, no lower extremity edema and no calf tenderness. NEUROLOGIC EXAMINATION: Patient is awake, alert and oriented x3. ASSESSMENT Acute on chronic hypoxic respiratory failure secondary to COPD Lactic acidosis likely secondary to sepsis Leukocytosis Aortic stenosis, moderate to severe follows at the [facility] Hypertension Dyslipidemia Diabetes mellitus COPD PLAN Change beta-elier to metoprolol tartrate while being treated for respiratory failure on steroids, metoprolol tartrate 25 mg twice daily will replace metoprolol succinate for now. Echocardiogram has been ordered and will be reviewed. Ongoing medical management per the primary care team. Posthospital he will continue to get his cardiac care at the [facility]. Explained our thoughts in detail with the patient and his who is at the bedside. Thank you kindly for this consultation. Nurse Practitioner note has been reviewed, I agree with a documented findings and plan of care. Patient was seen and examined. Past Medical History Past Medical History: COPD, Diabetes Mellitus History of Any Multi-Drug Resistant Organisms: None Reported Additional Past Surgical History / Comment(s): cataracts Past Psychological History: No Psychological Hx Reported Smoking Status: Former smoker Past Alcohol Use History: None Reported Past Drug Use History: None Reported Medications and Allergies Home Medications Medication Instructions Recorded Confirmed Type Artificial Tears-Hypromellose 1 drop BOTH EYES QID 04/06/24 03/12/25 History [Artificial Tear Drops] Fluticasone Propion/Salmeterol 1 puff INHALATION RT-BID 04/06/24 03/12/25 History [Advair 100-50 Diskus] Ipratropium/Albuter 20-100Mcg 1 puff INHALATION RT-QID 04/06/24 03/12/25 History [Combivent Respimat 20-100Mcg Inhaler] Loratadine 10 mg PO DAILY 04/06/24 03/12/25 History Metoprolol Succinate (ER) [Toprol 12.5 mg PO DAILY 04/06/24 03/12/25 History XL] metFORMIN HCL 1,000 mg PO BID 04/06/24 03/12/25 History Clotrimazole Cream [Lotrimin Cream] 1 applic TOPICAL BID 03/12/25 03/12/25 History Fiber Gummies Sugar Free 1 tab PO DAILY 03/12/25 03/12/25 History Furosemide [Lasix] 20 mg PO DAILY 03/12/25 03/12/25 History Magnesium 250 mg PO HS 03/12/25 03/12/25 History Magnesium 500 mg PO DAILY 03/12/25 03/12/25 History Spironolactone [Aldactone] 25 mg PO BID 03/12/25 03/12/25 History Allergies Allergy/AdvReac Type Severity Reaction Status Date / Time naproxen Allergy Anaphylaxis Verified 03/12/25 15:56 simvastatin [From Zocor] AdvReac Nausea & Verified 03/12/25 15:56 Vomiting Physical Exam Vitals: Vital Signs Temp Pulse Resp BP Pulse Ox 03/13/25 10:00 97.8 F 92 16 111/87 92 L 03/13/25 08:48 83 18 03/13/25 08:41 77 18 95 03/13/25 08:00 74 18 119/81 100 03/13/25 06:40 83 18 117/55 96 03/13/25 04:53 86 18 109/65 94 L 03/12/25 21:37 103 H 18 115/50 95 03/12/25 19:48 96 03/12/25 19:23 99.6 F 96 18 117/50 92 L 03/12/25 18:38 102 H 25 H 131/53 91 L 03/12/25 17:20 112 H 03/12/25 16:53 100 03/12/25 16:17 20 03/12/25 14:01 99.7 F H 103 H 24 132/74 89 L Results 03/12/25 16:17 03/12/25 16:17 Cardiac Enzymes 03/12/25 03/12/25 Range/Units 16:17 16:17 AST 36 (17-59) U/L Troponin I 0.017 (0.000-0.034) ng/mL Coagulation 03/12/25 Range/Units 16:17 PT 11.7 (10.0-12.5) sec APTT 28.0 (22.0-30.0) sec CBC 03/12/25 Range/Units 16:17 WBC 17.12 H (4.50-10.00) 10*3/uL RBC 4.77 (4.40-5.60) 10*6/uL Hgb 14.7 (13.0-17.0) g/dL Hct 44.9 (39.6-50.0) % Plt Count 107 L (140-440) 10*3/uL Comprehensive Metabolic Panel 03/12/25 Range/Units 16:17 Sodium 137 (137-145) mmol/L Potassium 4.9 (3.5-5.1) mmol/L Chloride 98 (98-107) mmol/L Carbon Dioxide 28 (22-30) mmol/L BUN 24 H (9-20) mg/dL Creatinine 1.05 (0.66-1.25) mg/dL Glucose 111 H (74-99) mg/dL Calcium 9.3 (8.4-10.2) mg/dL AST 36 (17-59) U/L ALT 33 (4-49) U/L Alkaline Phosphatase 100 (38-126) U/L Total Protein 6.5 (6.3-8.2) g/dL Albumin 3.9 (3.5-5.0) g/dL Current Medications Generic Name Dose Route Start Last Admin Trade Name Freq PRN Reason Stop Dose Admin Albuterol/Ipratropium 3 ml 03/12/25 20:00 03/13/25 08:37 Ipratropium-Albuterol 3 Ml Neb INHALATION 3 ml RT-QID JESSICA Administration Albuterol/Ipratropium 3 ml 03/12/25 18:50 Ipratropium-Albuterol 3 Ml Neb INHALATION RT-Q4H PRN shortness of breath Artificial Tears 1 drops 03/12/25 22:00 03/13/25 08:30 Artificial Tears-Hypromellose Drops 15 Ml Btl BOTH EYES 1 drops QID JESSICA Administration Azithromycin 500 mg 03/13/25 09:00 03/13/25 08:26 Azithromycin 500 Mg Tab PO 03/14/25 09:01 500 mg DAILY JESSICA Administration Protocol Budesonide/Formoterol Fumarate 2 puff 03/13/25 08:00 03/13/25 08:40 Symbicort 160-4.5 Mcg Inhaler INHALATION 2 puff RT-BID JESSICA Administration Dextrose/Water 25 ml 03/13/25 01:12 Dextrose 50% Syringe 50 Ml IVP PER PROTOCOL PRN Hypoglycemia Protocol Dextrose/Water 50 ml 03/13/25 01:12 Dextrose 50% Syringe 50 Ml IVP PER PROTOCOL PRN Hypoglycemia Protocol Enoxaparin Sodium 40 mg 03/13/25 09:00 03/13/25 08:31 Enoxaparin 40 Mg/0.4 Ml Syringe SQ 40 mg DAILY JESSICA Administration Ceftriaxone Sodium 2 gm/ 50 mls @ 100 mls/hr 03/13/25 09:00 03/13/25 08:29 Sodium Chloride IVPB 03/16/25 09:29 100 mls/hr Q24HR JESSICA Administration Protocol Insulin Human Lispro 0 unit 03/13/25 07:30 03/13/25 08:02 Insulin Lispro (Humalog) 100 Unit/Ml 10 Ml Vl SQ Not Given ACHS JESSICA Protocol Loratadine 10 mg 03/13/25 09:00 03/13/25 08:26 Loratadine 10 Mg Tab PO 10 mg DAILY JESSICA Administration Magnesium Oxide 400 mg 03/12/25 21:00 03/13/25 08:26 Magnesium Oxide 400 Mg Tab PO 400 mg BID JESSICA Administration Methylprednisolone Sodium Succinate 60 mg 03/13/25 06:00 03/13/25 06:37 Methylprednisolone Sod Succi 125 Mg/2 Ml Vial IV 60 mg Q6HR JESSICA Administration Metoprolol Succinate 25 mg 03/14/25 09:00 Metoprolol Succinate (Er) 25 Mg Tab.Er.24h PO DAILY [facility] Miscellaneous Information 1 each 03/12/25 18:50 Pneumonia Protocol Utilized 1 Each Misc PO ONCE PRN Per Protocol Spironolactone 25 mg 03/12/25 21:00 03/13/25 08:26 Spironolactone 25 Mg Tab PO 25 mg BID JESSICA Administration 03/12/25 16:17 03/12/25 16:17
[2025-03-13 12:11] LABS: Glucose,Whole Blood 276 mg/dL (70-110)
--- NOTE | 2025-03-13 13:48 | P.PN ---
Subjective Progress Note Date: 03/13/25 Subjective: Patient seen and examined at bedside. No acute events overnight. Claims that her respiratory status is improving Pertinent positives and negatives as discussed above, a complete review of systems was performed and all other systems are negative. Vitals Signs Reviewed. General: Nontoxic, no distress, appears at stated age Derm: Warm, dry Head: Atraumatic, normocephalic, symmetric Eyes: EOMI, no lid lag, anicteric sclera Mouth: No lip lesion, mucus membranes moist Cardiovascular: S1S2 reg, systolic murmur Lungs: Bibasilar rales, no accessory muscle use, supplemental oxygen Abdominal: Soft, nontender to palpation, no guarding, no appreciable organomegaly Ext: No gross muscle atrophy, no edema, no contractures Neuro: CN II-XI grossly intact, no focal neuro deficits Psych: Alert, oriented, appropriate affect Data Reviewed Today: Pertinent Labs: Lactate elevated to 7, glucose of 276, repeat BMP pending, will be reviewed when available Imaging: EKG independently interpreted from this morning, shows normal sinus rhythm with first-degree AV block Assessment and Plan: Active: Acute on chronic hypoxic respiratory failure Acute COPD exacerbation Sepsis secondary to community-acquired pneumonia Type B lactic acidosis - Wean oxygen - On azithromycin 500 p.o. daily, IV ceftriaxone 2 g every 24 hours - DuoNebs every 4 hours as needed, 4 times daily scheduled, IV Solu-Medrol 60 mg every 6 hours - Blood cultures, sputum cultures, Legionella pending - Procalcitonin ordered as well - Pulmonology note reviewed, management as above - No need to repeat lactic acid given normal bicarb initially - Likely type B lactic acidosis in the setting of bronchodilators and possible liver dysfunction, blood pressure has been stable Moderate to severe aortic stenosis, follows [facility] Suspected CHF exacerbation Hypertension - Patient was given IV Lasix in the ER - Continue to monitor without diuretics for now - Echocardiogram pending - Cardiology note reviewed, on metoprolol 25 daily, Aldactone 25 twice daily Type 2 diabetes - Sliding scale insulin, monitor for hypoglycemia DVT ppx: Lovenox Code status: Full code Anticipated discharge place: Pending clinical course Anticipated discharge time: Pending clinical course Objective - Vital Signs Vital signs: Vital Signs Temp 97.8 F 03/13/25 10:00 Pulse 86 03/13/25 12:00 Resp 18 03/13/25 12:00 BP 112/53 03/13/25 12:00 Pulse Ox 98 03/13/25 12:00 FiO2 Intake & Output 03/12/25 03/13/25 03/13/25 18:59 06:59 18:59 Weight 104.78 kg - Labs CBC & Chem 7: 03/12/25 16:17 03/12/25 16:17 Labs: Abnormal Lab Results - Last 24 Hours (Table) 03/12/25 03/12/25 03/12/25 Range/Units 16:17 16:17 16:17 WBC 17.12 H (4.50-10.00) 10*3/uL Plt Count 107 L (140-440) 10*3/uL Immature Gran # 0.15 H (0.00-0.04) 10*3/uL Neutrophils # (Manual) 14.72 H (1.3-7.7) k/uL BUN 24 H (9-20) mg/dL Glucose 111 H (74-99) mg/dL POC Glucose (mg/dL) (70-110) mg/dL Plasma Lactic Acid Jonathon 3.8 H* (0.7-2.0) mmol/L Total Bilirubin 2.2 H (0.2-1.3) mg/dL 03/12/25 03/13/25 03/13/25 Range/Units 19:26 00:02 04:10 WBC (4.50-10.00) 10*3/uL Plt Count (140-440) 10*3/uL Immature Gran # (0.00-0.04) 10*3/uL Neutrophils # (Manual) (1.3-7.7) k/uL BUN (9-20) mg/dL Glucose (74-99) mg/dL POC Glucose (mg/dL) (70-110) mg/dL Plasma Lactic Acid Jonathon 3.8 H* 6.4 H* 5.9 H* (0.7-2.0) mmol/L Total Bilirubin (0.2-1.3) mg/dL 03/13/25 03/13/25 03/13/25 Range/Units 05:11 07:32 07:49 WBC (4.50-10.00) 10*3/uL Plt Count (140-440) 10*3/uL Immature Gran # (0.00-0.04) 10*3/uL Neutrophils # (Manual) (1.3-7.7) k/uL BUN (9-20) mg/dL Glucose (74-99) mg/dL POC Glucose (mg/dL) 224 H 204 H (70-110) mg/dL Plasma Lactic Acid Jonathon 5.8 H* (0.7-2.0) mmol/L Total Bilirubin (0.2-1.3) mg/dL 03/13/25 03/13/25 Range/Units 10:39 12:10 WBC (4.50-10.00) 10*3/uL Plt Count (140-440) 10*3/uL Immature Gran # (0.00-0.04) 10*3/uL Neutrophils # (Manual) (1.3-7.7) k/uL BUN (9-20) mg/dL Glucose (74-99) mg/dL POC Glucose (mg/dL) 276 H (70-110) mg/dL Plasma Lactic Acid Jonathon 7.0 H* (0.7-2.0) mmol/L Total Bilirubin (0.2-1.3) mg/dL Microbiology - Last 24 Hours (Table) 03/12/25 19:16 Gram Stain - Preliminary Sputum
[2025-03-13 15:17] LABS: African American GFR (CKD) 79 (>60 ml/min/1.73 sqM); Anion Gap 11 mmol/L; Blood Urea Nitrogen 42 mg/dL (9-20); Calcium 9.2 mg/dL (8.4-10.2); Carbon Dioxide 25 mmol/L (22-30); Chloride 99 mmol/L (98-107); Glucose 347 mg/dL (74-99); Non-African American GFR(CKD) 69 (>60 ml/min/1.73 sqM); Potassium 4.5 mmol/L (3.5-5.1); Sodium 135 mmol/L (137-145)
[2025-03-13 16:54] LABS: Glucose,Whole Blood 301 mg/dL (70-110)
[2025-03-13 22:58] LABS: Glucose,Whole Blood 348 mg/dL (70-110)
[2025-03-14 05:05] LABS: Basophils # (A) 0.05 10*3/uL (0.00-0.10); Basophils % (A) 0.5 %; HCT 40.7 % (39.6-50.0); HGB 13.2 g/dL (13.0-17.0); Lymphocytes # (A) 0.65 10*3/uL (0.90-5.00); Lymphocytes % (A) 6.3 %; MCH 30.3 pg (27.0-32.0); MCHC 32.4 g/dL (32.0-37.0); MCV 93.3 fL (80.0-97.0); Mean Platelet Volume 10.5 fL (9.5-12.2); Monocytes % (A) 5.8 %; Neutrophils # (A) 8.89 10*3/uL (1.80-7.70); Neutrophils % (A) 85.9 %; Platelet Count 115 10*3/uL (140-440); RBC 4.36 10*6/uL (4.40-5.60); RDW 13.7 % (11.5-14.5); WBC 10.35 10*3/uL (4.50-10.00)
[2025-03-14 05:21] LABS: ALT 31 U/L (4-49); AST 29 U/L (17-59); African American GFR (CKD) 72 (>60 ml/min/1.73 sqM); Albumin 3.2 g/dL (3.5-5.0); Alkaline Phosphatase 118 U/L (38-126); Anion Gap 8 mmol/L; Blood Urea Nitrogen 46 mg/dL (9-20); Calcium 9.9 mg/dL (8.4-10.2); Carbon Dioxide 31 mmol/L (22-30); Chloride 96 mmol/L (98-107); Glucose 177 mg/dL (74-99); Non-African American GFR(CKD) 63 (>60 ml/min/1.73 sqM); Potassium 4.6 mmol/L (3.5-5.1); Sodium 135 mmol/L (137-145); Total Bilirubin 0.6 mg/dL (0.2-1.3); Total Protein 5.6 g/dL (6.3-8.2)
[2025-03-14 06:13] LABS: Glucose,Whole Blood 173 mg/dL (70-110)
[2025-03-14 08:00] LABS: Glucose,Whole Blood 165 mg/dL (70-110)
[2025-03-14] MEDS: METOPROLOL SUCCINATE (ER) 25 MG TAB.ER.24H PO SCH (10:02)
--- NOTE | 2025-03-14 11:26 | P.PN ---
Subjective HISTORY OF PRESENT ILLNESS: This is a pleasant 79-year-old male past medical history significant for hypertension, dyslipidemia, COPD, diabetes mellitus, aortic stenosis, obesity and former nicotine dependence. He follows in the office with cardiology at the [facility]. We have been asked to see in consultation for aortic stenosis. He has known moderate to severe aortic stenosis and indicates he is seen at the [facility] every 6 months and they have discussed valve replacement but currently being managed medically. He is presented to the hospital with symptoms of cough, congestion and shortness of breath. He has been seen by pulmonology and is currently receiving IV steroids and antibiotics. His cough is thick dark mucus productive. He has no chest pain, dizziness or palpitations. The last echo that we have here in [place] was done in 2023 and mean gradient was 30 at that time. Chest x-ray reveals small effusions and pulmonary vascular congestion. Laboratory data reviewed, lactic acid 5.8, WBC 17, hemoglobin 14.7, platelets 107, sodium 137, potassium 4.9, creatinine 1.05, opponent negative x 1 and NT proBNP 503. EKG reveals sinus mechanism heart rate of 81 with first-degree AV block. Current daily cardiac medications include Lasix 20 mg daily, metoprolol succinate 12.5 mg daily and Aldactone 25 mg twice daily. 03/14/2025 Patient examined this morning to bedside. Patient continues to report shortness of breath. He denies any chest pain or pressure. 2D echo remains pending. PHYSICAL EXAM: VITAL SIGNS: Reviewed. GENERAL: Well-developed in no acute distress. NECK: Supple. No JVD or thyromegaly LUNGS: Respirations even and unlabored. Lungs essentially clear to auscultation bilaterally. HEART: Regular rate and rhythm. S1 and S2 heard. Systolic murmur noted. EXTREMITIES: Normal range of motion. No clubbing or cyanosis. Peripheral pulses intact. No lower extremity edema ASSESSMENT: Acute on chronic hypoxic respiratory failure secondary to COPD Lactic acidosis likely secondary to sepsis Leukocytosis Aortic stenosis, moderate to severe follows at the [facility] Hypertension Dyslipidemia Diabetes mellitus COPD PLAN: Continue current cardiac medications 2D echo pending. Await results Patient to follow-up postdischarge with his sausage smoker at the [facility] Further recommendations pending patient course Nurse practitioner note has been reviewed by physician. Signing provider agrees with the documented findings, assessment, and plan of care documented by PRODUCTION DESIGNER as a scribe. Objective - Vital Signs Vital signs: Vital Signs Temp 97.9 F 03/13/25 18:00 Pulse 82 03/14/25 09:59 Resp 20 03/14/25 09:59 BP 114/55 03/14/25 09:59 Pulse Ox 94 L 03/14/25 09:59 FiO2 - Labs CBC & Chem 7: 03/14/25 04:21 03/14/25 04:21 Labs: Abnormal Lab Results - Last 24 Hours (Table) 03/13/25 03/13/25 03/13/25 Range/Units 12:10 13:18 14:29 WBC (4.50-10.00) 10*3/uL RBC (4.40-5.60) 10*6/uL Plt Count (140-440) 10*3/uL Immature Gran # (0.00-0.04) 10*3/uL Neutrophils # (1.80-7.70) 10*3/uL Lymphocytes # (0.90-5.00) 10*3/uL Eosinophils # (0.04-0.35) 10*3/uL Sodium 135 L (137-145) mmol/L Chloride (98-107) mmol/L Carbon Dioxide (22-30) mmol/L BUN 42 H (9-20) mg/dL Glucose 347 H (74-99) mg/dL POC Glucose (mg/dL) 276 H (70-110) mg/dL Plasma Lactic Acid Jonathon 7.2 H* (0.7-2.0) mmol/L Total Protein (6.3-8.2) g/dL Albumin (3.5-5.0) g/dL 03/13/25 03/13/25 03/13/25 Range/Units 16:53 17:43 22:57 WBC (4.50-10.00) 10*3/uL RBC (4.40-5.60) 10*6/uL Plt Count (140-440) 10*3/uL Immature Gran # (0.00-0.04) 10*3/uL Neutrophils # (1.80-7.70) 10*3/uL Lymphocytes # (0.90-5.00) 10*3/uL Eosinophils # (0.04-0.35) 10*3/uL Sodium (137-145) mmol/L Chloride (98-107) mmol/L Carbon Dioxide (22-30) mmol/L BUN (9-20) mg/dL Glucose (74-99) mg/dL POC Glucose (mg/dL) 301 H 348 H (70-110) mg/dL Plasma Lactic Acid Jonathon 6.5 H* (0.7-2.0) mmol/L Total Protein (6.3-8.2) g/dL Albumin (3.5-5.0) g/dL 03/14/25 03/14/25 03/14/25 Range/Units 04:21 04:21 06:06 WBC 10.35 H (4.50-10.00) 10*3/uL RBC 4.36 L (4.40-5.60) 10*6/uL Plt Count 115 L (140-440) 10*3/uL Immature Gran # 0.16 H (0.00-0.04) 10*3/uL Neutrophils # 8.89 H (1.80-7.70) 10*3/uL Lymphocytes # 0.65 L (0.90-5.00) 10*3/uL Eosinophils # 0.00 L (0.04-0.35) 10*3/uL Sodium 135 L (137-145) mmol/L Chloride 96 L (98-107) mmol/L Carbon Dioxide 31 H (22-30) mmol/L BUN 46 H (9-20) mg/dL Glucose 177 H (74-99) mg/dL POC Glucose (mg/dL) 173 H (70-110) mg/dL Plasma Lactic Acid Jonathon (0.7-2.0) mmol/L Total Protein 5.6 L (6.3-8.2) g/dL Albumin 3.2 L (3.5-5.0) g/dL 03/14/25 Range/Units 07:58 WBC (4.50-10.00) 10*3/uL RBC (4.40-5.60) 10*6/uL Plt Count (140-440) 10*3/uL Immature Gran # (0.00-0.04) 10*3/uL Neutrophils # (1.80-7.70) 10*3/uL Lymphocytes # (0.90-5.00) 10*3/uL Eosinophils # (0.04-0.35) 10*3/uL Sodium (137-145) mmol/L Chloride (98-107) mmol/L Carbon Dioxide (22-30) mmol/L BUN (9-20) mg/dL Glucose (74-99) mg/dL POC Glucose (mg/dL) 165 H (70-110) mg/dL Plasma Lactic Acid Jonathon (0.7-2.0) mmol/L Total Protein (6.3-8.2) g/dL Albumin (3.5-5.0) g/dL Microbiology - Last 24 Hours (Table) 03/12/25 19:16 Gram Stain - Preliminary Sputum Sputum Culture - Preliminary 03/12/25 16:17 Blood Culture - Preliminary Blood
[2025-03-14 12:34] LABS: Glucose,Whole Blood 281 mg/dL (70-110)
--- NOTE | 2025-03-14 13:13 | P.PN ---
Subjective Progress Note Date: 03/14/25 Subjective: Patient seen and examined at bedside. No acute events overnight. Claims that her respiratory status is improving Pertinent positives and negatives as discussed above, a complete review of systems was performed and all other systems are negative. Vitals Signs Reviewed. General: Nontoxic, no distress, appears at stated age Derm: Warm, dry Head: Atraumatic, normocephalic, symmetric Eyes: EOMI, no lid lag, anicteric sclera Mouth: No lip lesion, mucus membranes moist Cardiovascular: S1S2 reg, systolic murmur Lungs: Bibasilar rales, no accessory muscle use, supplemental oxygen Abdominal: Soft, nontender to palpation, no guarding, no appreciable organomegaly Ext: No gross muscle atrophy, no edema, no contractures Neuro: CN II-XI grossly intact, no focal neuro deficits Psych: Alert, oriented, appropriate affect Data Reviewed Today: Pertinent Labs: WBC 10.35, platelet 115, creatinine 1.11, glucose range between 165 202 81 Imaging: No new imaging Assessment and Plan: Active: Acute on chronic hypoxic respiratory failure Acute COPD exacerbation Sepsis secondary to community-acquired pneumonia Type B lactic acidosis - Wean oxygen - On IV ceftriaxone 2 g every 24 hours, completed azithromycin 500 p.o. daily - DuoNebs every 4 hours as needed, 4 times daily scheduled, IV Solu-Medrol 60 mg every 6 hours - Blood cultures, sputum cultures pending, Legionella negative - Pulmonology note reviewed, management as above - No need to repeat lactic acid given normal bicarb initially - Likely type B lactic acidosis in the setting of bronchodilators and possible liver dysfunction, blood pressure has been stable Moderate to severe aortic stenosis, follows [place] Suspected CHF exacerbation Hypertension - Patient was given IV Lasix in the ER - Continue to monitor without diuretics for now - Echocardiogram pending - Cardiology note reviewed, on metoprolol 25 daily, Aldactone 25 twice daily, outpatient follow-up with [place] cardiology Type 2 diabetes - Sliding scale insulin, monitor for hypoglycemia DVT ppx: Lovenox Code status: Full code Anticipated discharge place: Pending clinical course Anticipated discharge time: Pending clinical course Objective - Vital Signs Vital signs: Vital Signs Temp 97.9 F 03/14/25 12:05 Pulse 84 03/14/25 12:05 Resp 18 03/14/25 12:05 BP 134/68 03/14/25 12:05 Pulse Ox 96 03/14/25 12:05 FiO2 - Labs CBC & Chem 7: 03/14/25 04:21 03/14/25 04:21 Labs: Abnormal Lab Results - Last 24 Hours (Table) 03/13/25 03/13/25 03/13/25 Range/Units 13:18 14:29 16:53 WBC (4.50-10.00) 10*3/uL RBC (4.40-5.60) 10*6/uL Plt Count (140-440) 10*3/uL Immature Gran # (0.00-0.04) 10*3/uL Neutrophils # (1.80-7.70) 10*3/uL Lymphocytes # (0.90-5.00) 10*3/uL Eosinophils # (0.04-0.35) 10*3/uL Sodium 135 L (137-145) mmol/L Chloride (98-107) mmol/L Carbon Dioxide (22-30) mmol/L BUN 42 H (9-20) mg/dL Glucose 347 H (74-99) mg/dL POC Glucose (mg/dL) 301 H (70-110) mg/dL Plasma Lactic Acid Jonathon 7.2 H* (0.7-2.0) mmol/L Total Protein (6.3-8.2) g/dL Albumin (3.5-5.0) g/dL 03/13/25 03/13/25 03/14/25 Range/Units 17:43 22:57 04:21 WBC 10.35 H (4.50-10.00) 10*3/uL RBC 4.36 L (4.40-5.60) 10*6/uL Plt Count 115 L (140-440) 10*3/uL Immature Gran # 0.16 H (0.00-0.04) 10*3/uL Neutrophils # 8.89 H (1.80-7.70) 10*3/uL Lymphocytes # 0.65 L (0.90-5.00) 10*3/uL Eosinophils # 0.00 L (0.04-0.35) 10*3/uL Sodium (137-145) mmol/L Chloride (98-107) mmol/L Carbon Dioxide (22-30) mmol/L BUN (9-20) mg/dL Glucose (74-99) mg/dL POC Glucose (mg/dL) 348 H (70-110) mg/dL Plasma Lactic Acid Jonathon 6.5 H* (0.7-2.0) mmol/L Total Protein (6.3-8.2) g/dL Albumin (3.5-5.0) g/dL 03/14/25 03/14/25 03/14/25 Range/Units 04:21 06:06 07:58 WBC (4.50-10.00) 10*3/uL RBC (4.40-5.60) 10*6/uL Plt Count (140-440) 10*3/uL Immature Gran # (0.00-0.04) 10*3/uL Neutrophils # (1.80-7.70) 10*3/uL Lymphocytes # (0.90-5.00) 10*3/uL Eosinophils # (0.04-0.35) 10*3/uL Sodium 135 L (137-145) mmol/L Chloride 96 L (98-107) mmol/L Carbon Dioxide 31 H (22-30) mmol/L BUN 46 H (9-20) mg/dL Glucose 177 H (74-99) mg/dL POC Glucose (mg/dL) 173 H 165 H (70-110) mg/dL Plasma Lactic Acid Jonathon (0.7-2.0) mmol/L Total Protein 5.6 L (6.3-8.2) g/dL Albumin 3.2 L (3.5-5.0) g/dL 03/14/25 Range/Units 12:33 WBC (4.50-10.00) 10*3/uL RBC (4.40-5.60) 10*6/uL Plt Count (140-440) 10*3/uL Immature Gran # (0.00-0.04) 10*3/uL Neutrophils # (1.80-7.70) 10*3/uL Lymphocytes # (0.90-5.00) 10*3/uL Eosinophils # (0.04-0.35) 10*3/uL Sodium (137-145) mmol/L Chloride (98-107) mmol/L Carbon Dioxide (22-30) mmol/L BUN (9-20) mg/dL Glucose (74-99) mg/dL POC Glucose (mg/dL) 281 H (70-110) mg/dL Plasma Lactic Acid Jonathon (0.7-2.0) mmol/L Total Protein (6.3-8.2) g/dL Albumin (3.5-5.0) g/dL Microbiology - Last 24 Hours (Table) 03/12/25 19:16 Gram Stain - Preliminary Sputum Sputum Culture - Preliminary 03/12/25 16:17 Blood Culture - Preliminary Blood
--- NOTE | 2025-03-14 15:42 | P.PN ---
Subjective Progress Note Date: 03/14/25 Patient is a 79-year-old male with past medical history significant for COPD, chronic hypoxemic respiratory failure utilizing 2 L/min nasal cannula mostly at night, former tobacco smoker, diabetes mellitus, and valvular heart disease. Most recent available echocardiogram from March, estimating left ventricular ejection fraction of 60 to 65% with moderate to severe aortic stenosis, trace MR, and trace tricuspid regurgitation. He follows at the [facility]. Presents the emergency department yesterday afternoon with a chief complaint of increased work of breathing and productive cough, progressively worsening since Thursday. Chest x-ray showing cardiomegaly pulmonary vascular congestion, and small pleur al effusions. NT proBNP only 503. CBC remarkable for leukocytosis with a WBC count of 17.1. Hemoglobin 14.7 and platelets 107. BMP unremarkable, electrolytes WDL, creatinine 1.05, glucose 111. Serial lactic's on the rise, currently 6.4. Patient currently being evaluated in the emergency department. Sitting in the recliner at the bedside. He is on 4 L/min nasal cannula, does not appear in any respiratory distress. SpO2 is reading 95% on bedside monitor. Endorsing increasing worsening shortness of breath since Thursday. Normally requiring 2 L/min nasal cannula while at home, which he increased to 4 L/min nasal cannula. Associated congested and productive cough with "gooey" green sputum. Originally, noted is brown in color. Subjective fevers at home, recorded 99.7 F in the ED. Denies any sick contacts or recent travel. States he lives at home alone. Previously received doses of azithromycin and Rocephin. Denies any chest pain heart palpitations, lightheadedness, or increased lower extremity swelling. He does take Lasix on an outpatient basis. Denies missing any doses. Did receive a dose of 40 mg IV push Lasix in the ED. Also, his COPD was previously felt to be active and was started on combination of DuoNebs, Symbicort inhaler, and loaded with IV Solu-Medrol. On 03/14/2025, the patient is being seen for a follow-up. The patient is feeling better compared to yesterday. Seems to be less short of breath, less bronchospastic and wheezy compared to yesterday's evaluation. Denies having any chest pain. Cough and wheezing has subsided. No pleurisy. No hemoptysis. He remains in the emergency department as the patient is waiting to be moved to a medical floor once beds are available. Meanwhile, he remains on DuoNeb the regiment [id number], Symbicort 2 puffs twice a day and IV Solu-Medrol 60 mg every 6 hours. He is also on IV Rocephin. He remains on Aldactone. He is on Lovenox for DVT prophylaxis. Blood work shows a WBC count of 10.3 with a heme of 13.2 with a platelet count of 115. BUN is 46 with a creatinine of 1.1 and a sodium is at 135 with a potassium level of 4.6. Lactic acid level was elevated due to metformin. Legionella urine antigen was negative. Objective - Vital Signs Vital signs: Vital Signs Temp 97.9 F 03/14/25 12:05 Pulse 87 03/14/25 15:32 Resp 20 03/14/25 14:00 BP 136/52 03/14/25 14:00 Pulse Ox 94 L 03/14/25 14:00 FiO2 - Exam GENERAL EXAM: Alert, obese male, sitting in bedside recliner, comfortable in no apparent distress. HEAD: Normocephalic and atraumatic EYES: Normal reaction of pupils, equal size. NOSE: Clear with pink turbinates. THROAT: No erythema or exudates. NECK: No masses, no JVD. CHEST: No chest wall deformity. LUNGS: Equal air entry with scattered rhonchi and bibasilar crackles. On 4 L/min nasal cannula. No conversational dyspnea or accessory muscle use.. CVS: S1 and S2 normal with systolic murmur, regular rhythm. No other extra heart sounds ABDOMEN: No hepatosplenomegaly, active bowel sounds, no guarding or rigidity. SPINE: No scoliosis or deformity SKIN: No rashes CENTRAL NERVOUS SYSTEM: No focal deficits, tone is normal in all 4 extremities. EXTREMITIES: There is no peripheral edema, clubbing, or cyanosis. Peripheral pulses are intact. - Labs CBC & Chem 7: 03/14/25 04:21 03/14/25 04:21 Labs: Abnormal Lab Results - Last 24 Hours (Table) 03/13/25 03/13/25 03/13/25 Range/Units 16:53 17:43 22:57 WBC (4.50-10.00) 10*3/uL RBC (4.40-5.60) 10*6/uL Plt Count (140-440) 10*3/uL Immature Gran # (0.00-0.04) 10*3/uL Neutrophils # (1.80-7.70) 10*3/uL Lymphocytes # (0.90-5.00) 10*3/uL Eosinophils # (0.04-0.35) 10*3/uL Sodium (137-145) mmol/L Chloride (98-107) mmol/L Carbon Dioxide (22-30) mmol/L BUN (9-20) mg/dL Glucose (74-99) mg/dL POC Glucose (mg/dL) 301 H 348 H (70-110) mg/dL Plasma Lactic Acid Jonathon 6.5 H* (0.7-2.0) mmol/L Total Protein (6.3-8.2) g/dL Albumin (3.5-5.0) g/dL 03/14/25 03/14/25 03/14/25 Range/Units 04:21 04:21 06:06 WBC 10.35 H (4.50-10.00) 10*3/uL RBC 4.36 L (4.40-5.60) 10*6/uL Plt Count 115 L (140-440) 10*3/uL Immature Gran # 0.16 H (0.00-0.04) 10*3/uL Neutrophils # 8.89 H (1.80-7.70) 10*3/uL Lymphocytes # 0.65 L (0.90-5.00) 10*3/uL Eosinophils # 0.00 L (0.04-0.35) 10*3/uL Sodium 135 L (137-145) mmol/L Chloride 96 L (98-107) mmol/L Carbon Dioxide 31 H (22-30) mmol/L BUN 46 H (9-20) mg/dL Glucose 177 H (74-99) mg/dL POC Glucose (mg/dL) 173 H (70-110) mg/dL Plasma Lactic Acid Jonathon (0.7-2.0) mmol/L Total Protein 5.6 L (6.3-8.2) g/dL Albumin 3.2 L (3.5-5.0) g/dL 03/14/25 03/14/25 Range/Units 07:58 12:33 WBC (4.50-10.00) 10*3/uL RBC (4.40-5.60) 10*6/uL Plt Count (140-440) 10*3/uL Immature Gran # (0.00-0.04) 10*3/uL Neutrophils # (1.80-7.70) 10*3/uL Lymphocytes # (0.90-5.00) 10*3/uL Eosinophils # (0.04-0.35) 10*3/uL Sodium (137-145) mmol/L Chloride (98-107) mmol/L Carbon Dioxide (22-30) mmol/L BUN (9-20) mg/dL Glucose (74-99) mg/dL POC Glucose (mg/dL) 165 H 281 H (70-110) mg/dL Plasma Lactic Acid Jonathon (0.7-2.0) mmol/L Total Protein (6.3-8.2) g/dL Albumin (3.5-5.0) g/dL Microbiology - Last 24 Hours (Table) 03/12/25 19:16 Gram Stain - Preliminary Sputum Sputum Culture - Preliminary 03/12/25 16:17 Blood Culture - Preliminary Blood Assessment and Plan Assessment: Acute on chronic hypoxemic respiratory failure, suspect secondary to acute COPD exacerbation, chest x-ray remarkable for cardiomegaly, pulmonary vascular congestion, and small pleural effusions. NT proBNP only 503. The acute hypoxic respiratory failure was essentially related to COPD exacerbation. The patient is currently on 2 L of O2 nasal cannula. History of moderate to severe aortic stenosis Acute leukocytosis, Improving in the patient's white cell count is down to 10. Lactic acidemia, consider metformin induced, improving Chronic hypoxemic respiratory failure, normally utilizes 2 L/min nasal cannula History of alcohol abuse Hypertension Diabetes mellitus, type II Obesity, with a BMI of 37.3 kg/m Plan: Oxygenation is stable and the patient is currently on 2 L of oxygen by nasal cannula Continue combination of DuoNebs Continue Symbicort, Continue IV Solu-Medrol Continue empiric antibiotics Chest x-ray remarkable for cardiomegaly, pulmonary vascular congestion, and possible small bilateral effusions. NT proBNP was only 503. Previously received a dose of IV Lasix 40 mg in the ED. Most recent available echocardiogram reviewed Cardiology is consulted Echocardiogram from 04/06/2024 was noted and the patient has moderate to severe aortic stenosis. Preserved LV function. Suggest repeating echocardiogram. Will continue to follow.
[2025-03-14 16:49] LABS: Glucose,Whole Blood 340 mg/dL (70-110)
[2025-03-14 21:15] LABS: Glucose,Whole Blood 235 mg/dL (70-110)
[2025-03-15 06:16] LABS: Glucose,Whole Blood 221 mg/dL (70-110)
[2025-03-15 09:07] LABS: BUN/Creat Ratio 36.22 Ratio (12.00-20.00); Blood Urea Nitrogen 32.6 mg/dL (9.0-27.0); Calcium 9.1 mg/dL (8.7-10.3); Carbon Dioxide 29.2 mmol/L (21.6-31.8); Chloride 100 mmol/L (96-109); Glucose 206 mg/dL (70-110); Magnesium 2.3 mg/dL (1.5-2.4); Potassium 4.5 mmol/L (3.5-5.5); Sodium 137 mmol/L (135-145)
[2025-03-15 11:25] LABS: Glucose,Whole Blood 239 mg/dL (70-110)
--- NOTE | 2025-03-15 11:37 | P.PN ---
Subjective HISTORY OF PRESENTING ILLNESS This is a pleasant 79-year-old male past medical history significant for hypertension, dyslipidemia, COPD, diabetes mellitus, aortic stenosis, obesity and former nicotine dependence. He follows in the office with cardiology at the [facility]. We have been asked to see in consultation for aortic stenosis. He has known moderate to severe aortic stenosis and indicates he is seen at the [facility] every 6 months and they have discussed valve replacement but currently being managed medically. He is presented to the hospital with symptoms of cough, congestion and shortness of breath. He has been seen by pulmonology and is currently receiving IV steroids and antibiotics. His cough is thick dark mucus productive. He has no chest pain, dizziness or palpitations. The last echo that we have here in [place] was done in 2023 and mean gradient was 30 at that time. Chest x-ray reveals small effusions and pulmonary vascular congestion. Laboratory data reviewed, lactic acid 5.8, WBC 17, hemoglobin 14.7, platelets 107, sodium 137, potassium 4.9, creatinine 1.05, opponent negative x 1 and NT proBNP 503. EKG reveals sinus mechanism heart rate of 81 with first-degree AV block. Current daily cardiac medications include Lasix 20 mg daily, metoprolol succinate 12.5 mg daily and Aldactone 25 mg twice daily. 03/15/2025 Patient seen and examined resting in bed comfortably in no acute distress. Currently being treated for COPD exacerbation. Blood pressure 107/63 heart rate 84 afebrile maintaining oxygen saturation on nasal cannula. PHYSICAL EXAMINATION Blood pressure 111/87 heart rate 92 afebrile and maintaining oxygen saturation on nasal cannula. CONSTITUTIONAL: No apparent distress. HEENT: Head is normocephalic. Pupils are equal, round. Sclerae anicteric. Mucous membranes of the mouth are moist. No JVD. No carotid bruit. CHEST EXAMINATION: Bibasilar rales, no rhonchi or wheezes. No chest wall ten derness is noted on palpation or with deep breathing. HEART EXAMINATION: Regular rate and rhythm. S1, S2 heard. Systolic ejection murmur at the base, no gallops or rub. ABDOMEN: Soft, nontender. EXTREMITIES: 2+ peripheral pulses, no lower extremity edema and no calf tenderness. NEUROLOGIC EXAMINATION: Patient is awake, alert and oriented x3. ASSESSMENT Acute on chronic hypoxic respiratory failure secondary to COPD Lactic acidosis likely secondary to sepsis Leukocytosis Aortic stenosis, moderate to severe follows at the [facility] Hypertension Dyslipidemia Diabetes mellitus COPD PLAN Echocardiogram has been ordered and will be reviewed. He prefers to continue to follow-up at the [facility] and has an upcoming appointment. Ongoing medical management per the primary care team. Posthospital he will continue to get his cardiac care at the [facility]. Will follow along as needed, please call with further questions or concerns. Nurse Practitioner note has been reviewed, I agree with a documented findings an d plan of care. Patient was seen and examined. Objective - Vital Signs Vital signs: Vital Signs Temp 97.8 F 03/15/25 08:01 Pulse 95 03/15/25 10:22 Resp 16 03/15/25 10:22 BP 107/63 03/15/25 08:01 Pulse Ox 94 L 03/15/25 01:00 FiO2 Intake & Output 03/14/25 03/15/25 03/15/25 18:59 06:59 18:59 Weight 104.78 kg Other: Voiding Method Toilet Toilet # Voids 2 1 - Labs CBC & Chem 7: 03/14/25 04:21 03/15/25 02:39 Labs: Abnormal Lab Results - Last 24 Hours (Table) 03/14/25 03/14/25 03/14/25 Range/Units 12:33 16:47 21:14 BUN (9.0-27.0) mg/dL BUN/Creatinine Ratio (12.00-20.00) Ratio Glucose (70-110) mg/dL POC Glucose (mg/dL) 281 H 340 H 235 H (70-110) mg/dL 03/15/25 03/15/25 03/15/25 Range/Units 02:39 06:14 11:23 BUN 32.6 H (9.0-27.0) mg/dL BUN/Creatinine Ratio 36.22 H (12.00-20.00) Ratio Glucose 206 H (70-110) mg/dL POC Glucose (mg/dL) 221 H 239 H (70-110) mg/dL Microbiology - Last 24 Hours (Table) 03/12/25 19:16 Gram Stain - Preliminary Sputum Sputum Culture - Preliminary Streptococcus pneumoniae 03/12/25 16:17 Blood Culture - Preliminary Blood
--- NOTE | 2025-03-15 11:58 | P.PN ---
Subjective Progress Note Date: 03/15/25 Subjective: Patient seen and examined at bedside. No acute events overnight. Respiratory status stable. Dyspnea mostly with exertion. Pertinent positives and negatives as discussed above, a complete review of systems was performed and all other systems are negative. Vitals Signs Reviewed. General: Nontoxic, no distress, appears at stated age Derm: Warm, dry Head: Atraumatic, normocephalic, symmetric Eyes: EOMI, no lid lag, anicteric sclera Mouth: No lip lesion, mucus membranes moist Cardiovascular: S1S2 reg, systolic murmur Lungs: Bibasilar rales, no accessory muscle use, supplemental oxygen Abdominal: Soft, nontender to palpation, no guarding, no appreciable organomegaly Ext: No gross muscle atrophy, no edema, no contractures Neuro: CN II-XI grossly intact, no focal neuro deficits Psych: Alert, oriented, appropriate affect Data Reviewed Today: Pertinent Labs: Potassium 4.5, creatinine 0.9, blood glucose range between 206- 239 Imaging: No new imaging Assessment and Plan: Active: Acute on chronic hypoxic respiratory failure Acute COPD exacerbation Sepsis secondary to community-acquired pneumonia Type B lactic acidosis - Wean oxygen - On IV ceftriaxone 2 g every 24 hours, completed azithromycin 500 p.o. daily - DuoNebs every 4 hours as needed, 4 times daily scheduled, IV Solu-Medrol 60 mg every 6 hours - Sputum cultures growing Streptococcus pneumonia - Pulmonology note reviewed, management as above - No need to repeat lactic acid given normal bicarb initially - Likely type B lactic acidosis in the setting of bronchodilators and possible liver dysfunction, blood pressure has been stable Moderate to severe aortic stenosis, follows [facility] Suspected CHF exacerbation Hypertension - Patient was given IV Lasix in the ER - Continue to monitor without diuretics for now - Echocardiogram pending - Cardiology note reviewed, on metoprolol 25 daily, Aldactone 25 twice daily, outpatient follow-up with [facility] Type 2 diabetes - Sliding scale insulin, monitor for hypoglycemia DVT ppx: Lovenox Code status: Full code Anticipated discharge place: Pending clinical course Anticipated discharge time: Pending clinical course Objective - Vital Signs Vital signs: Vital Signs Temp 97.8 F 03/15/25 08:01 Pulse 95 03/15/25 10:22 Resp 16 03/15/25 10:22 BP 107/63 03/15/25 08:01 Pulse Ox 94 L 03/15/25 01:00 FiO2 Intake & Output 03/14/25 03/15/25 03/15/25 18:59 06:59 18:59 Weight 104.78 kg Other: Voiding Method Toilet Toilet # Voids 2 1 - Labs CBC & Chem 7: 03/14/25 04:21 03/15/25 02:39 Labs: Abnormal Lab Results - Last 24 Hours (Table) 03/14/25 03/14/25 03/14/25 Range/Units 12:33 16:47 21:14 BUN (9.0-27.0) mg/dL BUN/Creatinine Ratio (12.00-20.00) Ratio Glucose (70-110) mg/dL POC Glucose (mg/dL) 281 H 340 H 235 H (70-110) mg/dL 03/15/25 03/15/25 03/15/25 Range/Units 02:39 06:14 11:23 BUN 32.6 H (9.0-27.0) mg/dL BUN/Creatinine Ratio 36.22 H (12.00-20.00) Ratio Glucose 206 H (70-110) mg/dL POC Glucose (mg/dL) 221 H 239 H (70-110) mg/dL Microbiology - Last 24 Hours (Table) 03/12/25 19:16 Gram Stain - Preliminary Sputum Sputum Culture - Preliminary Streptococcus pneumoniae 03/12/25 16:17 Blood Culture - Preliminary Blood
[2025-03-15 12:14] LABS: Basophils # (A) 0.02 X 10*3/uL (0.00-0.10); Basophils % (A) 0.2 %; Eosinophils # (A) 0 X 10*3/uL (0.04-0.35); Eosinophils % (A) 0 %; HCT 38.6 % (39.6-50.0); HGB 12.2 g/dL (13.0-17.0); Lymphocytes # (A) 0.64 X 10*3/uL (0.90-5.00); Lymphocytes % (A) 7.8 %; MCH 29.8 pg (27.0-32.0); MCHC 31.6 g/dL (32.0-37.0); MCV 94.1 FL (80.0-97.0); Mean Platelet Volume 10.6 FL (9.5-12.2); Monocytes # (A) 0.35 X 10*3/uL (0.20-1.00); Monocytes % (A) 4.3 %; NRBC Per 100 WBC 0 X 10*3/uL (0.00-0.01); Neutrophils # (A) 7.09 X 10*3/uL (1.80-7.70); Neutrophils % (A) 86.5 %; Platelet Count 105 X 10*3/uL (140-440); RDW 13.9 % (11.5-14.5)
[2025-03-15 16:35] LABS: Glucose,Whole Blood 254 mg/dL (70-110)
[2025-03-15 20:33] LABS: Glucose,Whole Blood 265 mg/dL (70-110)
--- NOTE | 2025-03-15 21:53 | P.PN ---
Subjective Progress Note Date: 03/15/25 Patient is a 79-year-old male with past medical history significant for COPD, chronic hypoxemic respiratory failure utilizing 2 L/min nasal cannula mostly at night, former tobacco smoker, diabetes mellitus, and valvular heart disease. Most recent available echocardiogram from March, estimating left ventricular ejection fraction of 60 to 65% with moderate to severe aortic stenosis, trace MR, and trace tricuspid regurgitation. He follows at the [place]. Presents the emergency department yesterday afternoon with a chief complaint of increased work of breathing and productive cough, progressively worsening since Thursday. Chest x-ray showing cardiomegaly pulmonary vascular congestion, and small pleur al effusions. NT proBNP only 503. CBC remarkable for leukocytosis with a WBC count of 17.1. Hemoglobin 14.7 and platelets 107. BMP unremarkable, electrolytes WDL, creatinine 1.05, glucose 111. Serial lactic's on the rise, currently 6.4. Patient currently being evaluated in the emergency department. Sitting in the recliner at the bedside. He is on 4 L/min nasal cannula, does not appear in any respiratory distress. SpO2 is reading 95% on bedside monitor. Endorsing increasing worsening shortness of breath since Thursday. Normally requiring 2 L/min nasal cannula while at home, which he increased to 4 L/min nasal cannula. Associated congested and productive cough with "gooey" green sputum. Originally, noted is brown in color. Subjective fevers at home, recorded 99.7 F in the ED. Denies any sick contacts or recent travel. States he lives at home alone. Previously received doses of azithromycin and Rocephin. Denies any chest pain heart palpitations, lightheadedness, or increased lower extremity swelling. He does take Lasix on an outpatient basis. Denies missing any doses. Did receive a dose of 40 mg IV push Lasix in the ED. Also, his COPD was previously felt to be active and was started on combination of DuoNebs, Symbicort inhaler, and loaded with IV Solu-Medrol. On 03/14/2025, the patient is being seen for a follow-up. The patient is feeling better compared to yesterday. Seems to be less short of breath, less bronchospastic and wheezy compared to yesterday's evaluation. Denies having any chest pain. Cough and wheezing has subsided. No pleurisy. No hemoptysis. He remains in the emergency department as the patient is waiting to be moved to a medical floor once beds are available. Meanwhile, he remains on DuoNeb the regiment [id number], Symbicort 2 puffs twice a day and IV Solu-Medrol 60 mg every 6 hours. He is also on IV Rocephin. He remains on Aldactone. He is on Lovenox for DVT prophylaxis. Blood work shows a WBC count of 10.3 with a heme of 13.2 with a platelet count of 115. BUN is 46 with a creatinine of 1.1 and a sodium is at 135 with a potassium level of 4.6. Lactic acid level was elevated due to metformin. Legionella urine antigen was negative. On 03/15/2025, the patient is feeling well. No specific complaints. Less short of breath compared to yesterday. Remains on bronchodilators. The chest x-ray that was done at time of admission showed cardiomegaly with small bilateral pleural effusion pulm vessel congestion. No evidence of any airspace disease or consolidation. Remains on Symbicort and IV Solu-Medrol 60 mg IV every 6 hours. No other new complaints for now. Sputum sample is positive for strep pneumo. The patient is currently covered with IV Rocephin. Meanwhile, the patient is known to have aortic stenosis moderate to severe and awaiting a follow-up echocardiogram. He is on Lovenox for DVT prophylaxis. He is on metoprolol 25 mg p.o. daily. His Aldactone 25 mg p.o. twice a day. Objective - Vital Signs Vital signs: Vital Signs Temp 97.3 F L 03/15/25 12:49 Pulse 76 03/15/25 12:49 Resp 17 03/15/25 12:49 BP 129/64 03/15/25 12:49 Pulse Ox 91 L 03/15/25 12:49 FiO2 Intake & Output 03/14/25 03/15/25 03/15/25 18:59 06:59 18:59 Weight 104.78 kg Other: Voiding Method Toilet Toilet # Voids 2 1 - Exam GENERAL EXAM: Alert, obese male, sitting in bedside recliner, comfortable in no apparent distress. The patient is currently on 2 L of oxygen by nasal cannula. HEAD: Normocephalic and atraumatic EYES: Normal reaction of pupils, equal size. NOSE: Clear with pink turbinates. THROAT: No erythema or exudates. NECK: No masses, no JVD. CHEST: No chest wall deformity. LUNGS: Equal air entry with scattered rhonchi and bibasilar crackles. No conve rsational dyspnea or accessory muscle use.. CVS: S1 and S2 normal with systolic murmur, regular rhythm. No other extra heart sounds ABDOMEN: No hepatosplenomegaly, active bowel sounds, no guarding or rigidity. SPINE: No scoliosis or deformity SKIN: No rashes CENTRAL NERVOUS SYSTEM: No focal deficits, tone is normal in all 4 extremities. EXTREMITIES: There is no peripheral edema, clubbing, or cyanosis. Peripheral pulses are intact. - Labs CBC & Chem 7: 03/15/25 02:39 03/15/25 02:39 Labs: Abnormal Lab Results - Last 24 Hours (Table) 03/14/25 03/14/25 03/15/25 Range/Units 16:47 21:14 02:39 RBC 4.10 L (4.40-5.60) X 10*6/uL Hgb 12.2 L (13.0-17.0) g/dL Hct 38.6 L (39.6-50.0) % MCHC 31.6 L (32.0-37.0) g/dL Plt Count 105 L (140-440) X 10*3/uL Immature Gran # 0.10 H (0.00-0.04) X 10*3/uL Lymphocytes # 0.64 L (0.90-5.00) X 10*3/uL Eosinophils # 0 L (0.04-0.35) X 10*3/uL BUN (9.0-27.0) mg/dL BUN/Creatinine Ratio (12.00-20.00) Ratio Glucose (70-110) mg/dL POC Glucose (mg/dL) 340 H 235 H (70-110) mg/dL 03/15/25 03/15/25 03/15/25 Range/Units 02:39 06:14 11:23 RBC (4.40-5.60) X 10*6/uL Hgb (13.0-17.0) g/dL Hct (39.6-50.0) % MCHC (32.0-37.0) g/dL Plt Count (140-440) X 10*3/uL Immature Gran # (0.00-0.04) X 10*3/uL Lymphocytes # (0.90-5.00) X 10*3/uL Eosinophils # (0.04-0.35) X 10*3/uL BUN 32.6 H (9.0-27.0) mg/dL BUN/Creatinine Ratio 36.22 H (12.00-20.00) Ratio Glucose 206 H (70-110) mg/dL POC Glucose (mg/dL) 221 H 239 H (70-110) mg/dL Microbiology - Last 24 Hours (Table) 03/12/25 19:16 Gram Stain - Preliminary Sputum Sputum Culture - Preliminary Streptococcus pneumoniae 03/12/25 16:17 Blood Culture - Preliminary Blood Assessment and Plan Assessment: Acute on chronic hypoxemic respiratory failure, suspect secondary to acute COPD exacerbation, chest x-ray remarkable for cardiomegaly, pulmonary vascular congestion, and small pleural effusions. NT proBNP only 503. The acute hypoxic respiratory failure was essentially related to COPD exacerbation. The patient is currently on 2 L of O2 nasal cannula. Clinically stable and improving and the patient seems to be less short of breath as he is recovering from an acute COPD exacerbation. History of moderate to severe aortic stenosis Acute leukocytosis, Improving in the patient's white cell count is down to 10. Lactic acidemia, consider metformin induced, improving Chronic hypoxemic respiratory failure, normally utilizes 2 L/min nasal cannula History of alcohol abuse Hypertension Diabetes mellitus, type II Obesity, with a BMI of 37.3 kg/m Plan: Oxygenation is stable and the patient is currently on 2 L of oxygen by nasal cannula Continue combination of DuoNebs Continue Symbicort, Continue IV Solu-Medrol Continue empiric antibiotics Chest x-ray remarkable for cardiomegaly, pulmonary vascular congestion, and possible small bilateral effusions. NT proBNP was only 503. Previously received a dose of IV Lasix 40 mg in the ED. Most recent available echocardiogram reviewed Cardiology is consulted Echocardiogram from 04/06/2024 was noted and the patient has moderate to severe aortic stenosis. Preserved LV function. Suggest repeating echocardiogram. Will continue to follow.
[2025-03-16 06:13] LABS: Glucose,Whole Blood 271 mg/dL (70-110)
[2025-03-16 08:44] VITALS: RESP 18
--- NOTE | 2025-03-16 11:20 | CA ---
Transthoracic Echo Report Name: Ramos Bucio Age: 79 Gender: M : 1945 Exam Date: 03/16/2025 09:15 Exam Location: [place] [facility] Ht (in): 65 Wt (lb): 231 Ordering Physician: Samantha Funez MD Attending/Referring Phys: [id number], [employer] Telephone María Noble, DORINDA Procedure CPT: Indications: Severe aortic valve stenosis Cardiac Hx: Technical Quality: Fair Contrast 1: Total Dose (mL): Contrast 2: Total Dose (mL): MEASUREMENTS (Male / Female) Normal Values 2D ECHO LV Diastolic Diameter PLAX 5.6 cm 4.2 - 5.9 / 3.9 - 5.3 cm LV Systolic Diameter PLAX 1.8 cm IVS Diastolic Thickness 1.1 cm 0.6 - 1.0 / 0.6 - 0.9 cm LVPW Diastolic Thickness 1.2 cm 0.6 - 1.0 / 0.6 - 0.9 cm LV Relative Wall Thickness 0.4 RV Internal Dim ED PLAX 2.9 cm LVOT Diameter 2.1 cm LA Systolic Diameter LX 3.8 cm 3.0 - 4.0 / 2.7 - 3.8 cm LV Diastolic Volume MOD BP 93.4 cm??? 67 - 155 / 56 - 104 cm??? LV Systolic Volume MOD BP 27.7 cm??? 22 - 58 / 19 - 49 cm??? LV Ejection Fraction MOD BP 70.4 % >= 55 % LV Cardiac Index MOD BP 2493.2 cm???/min???m??? LV Diastolic Volume MOD 4C 85.0 cm??? LV Systolic Volume MOD 4C 28.4 cm??? LV Ejection Fraction MOD 4C 66.6 % LV Cardiac Index MOD 4C 2146.6 cm???/min???m??? LV Diastolic Length 4C 8.1 cm LV Systolic Length 4C 6.6 cm LV Diastolic Volume MOD 2C 101.1 cm??? LV Systolic Volume MOD 2C 26.6 cm??? LV Ejection Fraction MOD 2C 73.7 % LV Cardiac Index MOD 2C 2827.6 cm???/min???m??? LV Diastolic Length 2C 8.3 cm LV Systolic Length 2C 6.7 cm LA Volume 66.0 cm??? 18 - 58 / 22 - 52 cm??? LA Volume Index 29.5 cm???/m??? 16 - 28 cm???/m??? M-MODE Aortic Root Diameter MM 3.8 cm LA Systolic Diameter MM 3.4 cm LA Ao Ratio MM 0.9 AV Cusp Separation MM 0.8 cm DOPPLER AV Peak Velocity 375.6 cm/s AV Peak Gradient 56.4 mmHg AV Mean Velocity 286.2 cm/s AV Mean Gradient 35.2 mmHg AV Velocity Time Integral 85.6 cm AI Peak Velocity 268.6 cm/s AI Peak Gradient 28.9 mmHg AI Pressure Half Time 508.4 ms LVOT Peak Velocity 133.3 cm/s LVOT Peak Gradient 7.1 mmHg LVOT Velocity Time Integral 35.5 cm LVOT Stroke Volume 127.2 cm??? LVOT Stroke Volume Index 60.5 ml/m??? LVOT Cardiac Index 4821.8 cm???/min???m??? AV Area Cont Eq vti 1.5 cm??? AV Area Cont Eq pk 1.3 cm??? MV Area PHT 2.7 cm??? Mitral E Point Velocity 129.5 cm/s Mitral A Point Velocity 128.7 cm/s Mitral E to A Ratio 1.0 MV Deceleration Time 277.9 ms TR Peak Velocity 249.1 cm/s TR Peak Gradient 24.8 mmHg FINDINGS Left Ventricle Left ventricular ejection fraction is estimated at 55-60%. Normal left ventricular systolic function with no obvious regional wall motion abnormalities. Left ventricular cavity size normal. Right Ventricle Normal right ventricular size and function. Right ventricular systolic pressure within normal limits. Right Atrium Mild right atrial dilatation. Left Atrium Mildly increased left atrial volume. Mildly increased left atrial area. Mitral Valve Structurally normal mitral valve. Mild mitral regurgitation. No mitral stenosis. Aortic Valve [id number] aortic stenosis with a peak gradient of 56 mmHg and a mean gradient of 35 mmHg. Trileaflet aortic valve. Mild aortic regurgitation. Tricuspid Valve Structurally normal tricuspid valve. Mild tricuspid regurgitation. No tricuspid stenosis. Pulmonic Valve Structurally normal pulmonic valve. No pulmonic stenosis. Trace pulmonic regurgitation. Pericardium No pericardial or pleural effusion. Aorta Mild aortic dilatation at the level of the sinuses of valsalva (root). CONCLUSIONS LVEF 55% Mild concentric LVH No obvious regional wall motion abnormality Normal RV size systolic function Mild biatrial dilatation Mild mitral regurgitation Calcified aortic valve with moderate stenosis mean gradient 35 mmHg, mild aortic regurgitation Previewed by: Dr Newton Schaffer (Electronically Signed) Final Date: 16 March 2025 11:19
[2025-03-16 11:54] LABS: Glucose,Whole Blood 249 mg/dL (70-110)
[2025-03-16 14:04] VITALS: BP 112/69; PULSE 82; TEMP 98
--- NOTE | 2025-03-16 14:36 | P.DS ---
Providers Date of admission: 03/12/25 18:53 Expected date of discharge: 03/16/25 Attending physician: Hugo Zuluaga Consults: 03/12/25 18:50 Consult Physician Routine Consulting Provider: Christopher Lane Consult Reason/Comments: COPD Do you want consulting provider notified?: Yes, Notify in am 03/13/25 01:16 Consult Physician Routine Consulting Provider: Guanako Ascencio Consult Reason/Comments: severe aortic valve stenosis Do you want consulting provider notified?: Yes Primary care physician: Nick Michaels Hospital Course: Discharge Diagnosis: Acute on chronic hypoxic respiratory failure Acute COPD exacerbation Sepsis secondary to community-acquired pneumonia Type B lactic acidosis Moderate to severe aortic stenosis, follows [facility] Suspected CHF exacerbation Hypertension Type 2 diabetes Hospital Course: 79-year-old male with history of COPD, moderate to severe aortic stenosis, diastolic heart failure, hypertension, type 2 diabetes presented with acute on chronic hypoxic respiratory failure. Pulmonology and cardiology were consulted. Initial labs showed WBC of 17.12, band neutrophils. Lactate elevated to 6.5. Troponin was negative. proBNP 503. X-ray showed pulmonary vascular congestion versus possible pneumonia. EKG showed sinus rhythm with first-degree AV block. Patient was initially diuresed. Also started on bronchodilators and steroids. He also had antibiotics. Echocardiogram showed LVEF 55%, mild concentric LVH, moderate aortic stenosis with mild aortic regurgitation. Respiratory function at baseline at the time of discharge. Patient also had type B lactic acidosis initially, bicarb within normal limits. Renal function was stable. Unlikely to be lactic acidosis secondary to metformin. Metformin to be restarted at the time of discharge. Patient being discharged home with oral steroids, already completed course of IV antibiotics. Follow-up with PCP, pulmonology and cardiology. Patient seen and examined at bedside. Vital signs reviewed and stable. General: Nontoxic, no distress, appears at stated age Derm: Warm, dry Head: Atraumatic, normocephalic, symmetric Eyes: EOMI, no lid lag, anicteric sclera Mouth: No lip lesion, mucus membranes moist Cardiovascular: S1S2 reg, systolic murmur Lungs: Bibasilar rales, no accessory muscle use, supplemental oxygen Abdominal: Soft, nontender to palpation, no guarding, no appreciable organomegaly Ext: No gross muscle atrophy, no edema, no contractures Neuro: CN II-XI grossly intact, no focal neuro deficits Psych: Alert, oriented, appropriate affect A total of 38 minutes of time were spent preparing this complex discharge summary. Patient was discharged on 03/16/2025 at 1241. Patient Condition at Discharge: Stable Plan - Discharge Summary Discharge Rx Participant: Yes New Discharge Prescriptions: New predniSONE [Deltasone] 40 mg PO DAILY #4 tab Continue metFORMIN HCL 1,000 mg PO BID Fluticasone Propion/Salmeterol [Advair 100-50 Diskus] 1 puff INHALATION RT- BID Metoprolol Succinate (ER) [Toprol XL] 12.5 mg PO DAILY Clotrimazole Cream [Lotrimin Cream] 1 applic TOPICAL BID Magnesium 250 mg PO HS Spironolactone [Aldactone] 25 mg PO BID Fiber Gummies Sugar Free 1 tab PO DAILY Artificial Tears-Hypromellose [Artificial Tear Drops] 1 drop BOTH EYES QID Ipratropium/Albuter 20-100Mcg [Combivent Respimat 20-100Mcg Inhaler] 1 puff INHALATION RT-QID Loratadine 10 mg PO DAILY Furosemide [Lasix] 20 mg PO DAILY Magnesium 500 mg PO DAILY Discharge Medication List Artificial Tears-Hypromellose [Artificial Tear Drops] 1 drop BOTH EYES QID 04/06/24 [History] Fluticasone Propion/Salmeterol [Advair 100-50 Diskus] 1 puff INHALATION RT-BID 04/06/24 [History] Ipratropium/Albuter 20-100Mcg [Combivent Respimat 20-100Mcg Inhaler] 1 puff INHALATION RT-QID 04/06/24 [History] Loratadine 10 mg PO DAILY 04/06/24 [History] Metoprolol Succinate (ER) [Toprol XL] 12.5 mg PO DAILY 04/06/24 [History] metFORMIN HCL 1,000 mg PO BID 04/06/24 [History] Clotrimazole Cream [Lotrimin Cream] 1 applic TOPICAL BID 03/12/25 [History] Fiber Gummies Sugar Free 1 tab PO DAILY 03/12/25 [History] Furosemide [Lasix] 20 mg PO DAILY 03/12/25 [History] Magnesium 250 mg PO HS 03/12/25 [History] Magnesium 500 mg PO DAILY 03/12/25 [History] Spironolactone [Aldactone] 25 mg PO BID 03/12/25 [History] predniSONE [Deltasone] 40 mg PO DAILY #4 tab 03/16/25 [Rx] Follow up Appointment(s)/Referral(s): Nick Michaels DO [Primary Care Provider] - 1-2 days (Call IN for follow-up appointment at [phone]) Javed Mcguire MD [STAFF PHYSICIAN] - 03/28/25 9:00 am Patient Instructions/Handouts: COPD (Chronic Obstructive Pulmonary Disease) (DC), Community Acquired Pneumonia (DC) Activity/Diet/Wound Care/Special Instructions: Please see PCP and pulmonology. Also see [facility] Discharge Disposition: HOME SELF-CARE
--- NOTE | 2025-03-16 23:51 | P.PN ---
Subjective Progress Note Date: 03/16/25 Patient is a 79-year-old male with past medical history significant for COPD, chronic hypoxemic respiratory failure utilizing 2 L/min nasal cannula mostly at night, former tobacco smoker, diabetes mellitus, and valvular heart disease. Most recent available echocardiogram from March, estimating left ventricular ejection fraction of 60 to 65% with moderate to severe aortic stenosis, trace MR, and trace tricuspid regurgitation. He follows at the [facility]. Presents the emergency department yesterday afternoon with a chief complaint of increased work of breathing and productive cough, progressively worsening since Thursday. Chest x-ray showing cardiomegaly pulmonary vascular congestion, and small pleur al effusions. NT proBNP only 503. CBC remarkable for leukocytosis with a WBC count of 17.1. Hemoglobin 14.7 and platelets 107. BMP unremarkable, electrolytes WDL, creatinine 1.05, glucose 111. Serial lactic's on the rise, currently 6.4. Patient currently being evaluated in the emergency department. Sitting in the recliner at the bedside. He is on 4 L/min nasal cannula, does not appear in any respiratory distress. SpO2 is reading 95% on bedside monitor. Endorsing increasing worsening shortness of breath since Thursday. Normally requiring 2 L/min nasal cannula while at home, which he increased to 4 L/min nasal cannula. Associated congested and productive cough with "gooey" green sputum. Originally, noted is brown in color. Subjective fevers at home, recorded 99.7 F in the ED. Denies any sick contacts or recent travel. States he lives at home alone. Previously received doses of azithromycin and Rocephin. Denies any chest pain heart palpitations, lightheadedness, or increased lower extremity swelling. He does take Lasix on an outpatient basis. Denies missing any doses. Did receive a dose of 40 mg IV push Lasix in the ED. Also, his COPD was previously felt to be active and was started on combination of DuoNebs, Symbicort inhaler, and loaded with IV Solu-Medrol. On 03/14/2025, the patient is being seen for a follow-up. The patient is feeling better compared to yesterday. Seems to be less short of breath, less bronchospastic and wheezy compared to yesterday's evaluation. Denies having any chest pain. Cough and wheezing has subsided. No pleurisy. No hemoptysis. He remains in the emergency department as the patient is waiting to be moved to a medical floor once beds are available. Meanwhile, he remains on DuoNeb the regiment [id number], Symbicort 2 puffs twice a day and IV Solu-Medrol 60 mg every 6 hours. He is also on IV Rocephin. He remains on Aldactone. He is on Lovenox for DVT prophylaxis. Blood work shows a WBC count of 10.3 with a heme of 13.2 with a platelet count of 115. BUN is 46 with a creatinine of 1.1 and a sodium is at 135 with a potassium level of 4.6. Lactic acid level was elevated due to metformin. Legionella urine antigen was negative. On 03/15/2025, the patient is feeling well. No specific complaints. Less short of breath compared to yesterday. Remains on bronchodilators. The chest x-ray that was done at time of admission showed cardiomegaly with small bilateral pleural effusion pulm vessel congestion. No evidence of any airspace disease or consolidation. Remains on Symbicort and IV Solu-Medrol 60 mg IV every 6 hours. No other new complaints for now. Sputum sample is positive for strep pneumo. The patient is currently covered with IV Rocephin. Meanwhile, the patient is known to have aortic stenosis moderate to severe and awaiting a follow-up echocardiogram. He is on Lovenox for DVT prophylaxis. He is on metoprolol 25 mg p.o. daily. His Aldactone 25 mg p.o. twice a day. On 03/16/2025, the patient is feeling better. Ambulating. Less bronchospastic and wheezy. No specific complaints otherwise found on the respiratory status improved considerably as the patient was treated for an acute COPD exacerbation. The patient also has moderate severe aortic valve stenosis that needs to be followed up on outpatient basis. The patient is to be discharged home on a course of prednisone burst taper. He will be maintained on his routine bronchodilators at home including Combivent Respimat on an as-needed basis, albuterol updrafts and Advair. No new labs from today. The oxygenation is stab le and the patient is currently on room air oxygen with a pulse ox of 94%.Repeat echocardiogram was also done and the patient was found to have a preserved LV function the patient had a left ventricular ejection fraction of around 55 to 60%. The patient was also found to have moderate severe aortic stenosis with a peak gradient of 56 and a mean gradient of 35 and mild aortic regurgitation. Mild mitral regurgitation was also noted. Objective - Vital Signs Vital signs: Vital Signs Temp 97.6 F 03/16/25 07:12 Pulse 80 03/16/25 12:39 Resp 18 03/16/25 08:05 BP 112/65 03/16/25 07:12 Pulse Ox 93 L 03/16/25 07:12 FiO2 Intake & Output 03/15/25 03/16/25 03/16/25 18:59 06:59 18:59 Other: Voiding Method Toilet Toilet Toilet # Voids 2 2 - Exam GENERAL EXAM: Alert, obese male, sitting in bedside recliner, comfortable in no apparent distress. The patient is currently on room air oxygen. HEAD: Normocephalic and atraumatic EYES: Normal reaction of pupils, equal size. NOSE: Clear with pink turbinates. THROAT: No erythema or exudates. NECK: No masses, no JVD. CHEST: No chest wall deformity. LUNGS: Equal air entry with scattered rhonchi and bibasilar crackles. No conversational dyspnea or accessory muscle use.. CVS: S1 and S2 normal with systolic murmur, regular rhythm. No other extra heart sounds ABDOMEN: No hepatosplenomegaly, active bowel sounds, no guarding or rigidity. SPINE: No scoliosis or deformity SKIN: No rashes CENTRAL NERVOUS SYSTEM: No focal deficits, tone is normal in all 4 extremities. EXTREMITIES: There is no peripheral edema, clubbing, or cyanosis. Peripheral pulses are intact. - Labs CBC & Chem 7: 03/15/25 02:39 03/15/25 02:39 Labs: Abnormal Lab Results - Last 24 Hours (Table) 03/15/25 03/15/25 03/16/25 Range/Units 16:34 20:32 06:11 POC Glucose (mg/dL) 254 H 265 H 271 H (70-110) mg/dL 03/16/25 Range/Units 11:52 POC Glucose (mg/dL) 249 H (70-110) mg/dL Microbiology - Last 24 Hours (Table) 03/12/25 19:16 Gram Stain - Final Sputum Sputum Culture - Final Streptococcus pneumoniae 03/12/25 16:17 Blood Culture - Preliminary Blood Assessment and Plan Assessment: Acute on chronic hypoxemic respiratory failure, suspect secondary to acute COPD exacerbation, chest x-ray remarkable for cardiomegaly, pulmonary vascular con gestion, and small pleural effusions. NT proBNP only 503. The acute hypoxic respiratory failure was essentially related to COPD exacerbation. The patient is currently on 2 L of O2 nasal cannula. Clinically stable and improving and the patient seems to be less short of breath as he is recovering from an acute COPD exacerbation. History of moderate to severe aortic stenosis Acute leukocytosis, Improving in the patient's white cell count is down to 10. Lactic acidemia, consider metformin induced, improving Chronic hypoxemic respiratory failure, normally utilizes 2 L/min nasal cannula History of alcohol abuse Hypertension Diabetes mellitus, type II Obesity, with a BMI of 37.3 kg/m Plan: Clinically improved and the patient is currently on room air oxygen Continue combination of DuoNebs Continue Symbicort, Prednisone burst taper at time of discharge Chest x-ray remarkable for cardiomegaly, pulmonary vascular congestion, and possible small bilateral effusions. NT proBNP was only 503. Previously received a dose of IV Lasix 40 mg in the ED. Most recent available echocardiogram reviewed Cardiology is consulted Echocardiogram from 04/06/2024 was noted and the patient has moderate to severe aortic stenosis. Preserved LV function. Home today to be followed up on outpatient basis.
== END 2025-03-16 15:13 | disposition home or self-care (01) | DRG 871 ==
LOC: EC 13:47 → 4SSUR 18:53 → 3SCARD 03-13 19:15 → 4SSUR 03-14 13:40
PROVIDERS: ADMIT Student in an Organized Health Care Education/Training Program; ATTEND Student in an Organized Health Care Education/Training Program
DX: A41.9 Sepsis, unspecified organism (principal); J18.9 Pneumonia, unspecified organism; J96.21 Acute and chronic respiratory failure with hypoxia; E87.20 Acidosis, unspecified; J44.0 Chronic obstructive pulmonary disease with (acute) lower respiratory infection; I11.0 Hypertensive heart disease with heart failure; E11.9 Type 2 diabetes mellitus without complications; E66.9 Obesity, unspecified; F10.11 Alcohol abuse, in remission; I35.0 Nonrheumatic aortic (valve) stenosis; I50.32 Chronic diastolic (congestive) heart failure; J44.1 Chronic obstructive pulmonary disease with (acute) exacerbation; B95.3 Streptococcus pneumoniae as the cause of diseases classified elsewhere; E78.5 Hyperlipidemia, unspecified; I44.0 Atrioventricular block, first degree; Z68.37 Body mass index [BMI] 37.0-37.9, adult; Z79.51 Long term (current) use of inhaled steroids; Z79.84 Long term (current) use of oral hypoglycemic drugs; Z79.899 Other long term (current) drug therapy; Z87.891 Personal history of nicotine dependence; Z99.81 Dependence on supplemental oxygen; Z88.6 Allergy status to analgesic agent
CPT/HCPCS: 36415; 71046; 80048; 80053; 83036; 83605; 83735; 83880; 84484; 85025; 85610; 85730; 87040; 87070; 87077; 87186; 87205; 87449; 93005; 93306; 94640; 94760; 96365; 96366; 96368; 96372; 96375; 96376; 99291